=== PATIENT | male | born 1985 | race Two or more races ===

== ENCOUNTER 2018-06-05 12:22 | Emergency (ER) | payer OTHER ==
[2018-06-05 12:27] VITALS: BP 133/91
[2018-06-05] MEDS ORDERED: HYDROCODONE/ACETAMINOPHEN 5-325 MG TABLET PO ONE (12:53)
--- NOTE | 2018-06-05 12:58 | ER Document Report ---
HPI - HPI Patient complains to provider of: Fall downstairs Onset: Just prior to arrival Onset/Duration: Sudden Quality of pain: Sharp Pain Level: 5 Context: Patient states that he was attempting to walk down the stairs and he felt a pop in his knee and then he fell. Patient states that he injured his right wrist, bilateral knees, right ankle and back. Patient states he has a previous history of partial knee replacement on the knee that popped and caused him to fall. Patient denies any loss of consciousness, nausea or vomiting. Exacerbated by: Movement Relieved by: Denies Similar symptoms previously: No Recently seen / treated by doctor: No - ROS ROS below otherwise negative: Yes Systems Reviewed and Negative: Yes All other systems reviewed and negative - NEURO Neurology: DENIES: Headache, Weakness - RESPIRATORY Respiratory: DENIES: Trouble Breathing, Coughing - GASTROINTESTINAL Gastrointestinal: DENIES: Nausea - MUSCULOSKELETAL Musculoskeletal: REPORTS: Extremity pain, Back Pain. 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 IN LAST 30 DAYS: No - HEENT HEENT: Atraumatic, Normal ENT Exam, Normocephalic, PERRLA Notes: No raccoon or aldana sign, no hemotympanum, no fluid or drainage from ears or nose bilaterally - NECK Neck: Normal Inspection, Supple Notes: No midline tenderness step-off or deformity - RESPIRATORY Respiratory: Breath Sounds Normal, No Respiratory Distress - CARDIOVASCULAR Cardiovascular: Regular Rate, Regular Rhythm Pulses: Normal: Radial, Dorsalis pedis - BACK Back: Abnormal Inspection - Thoracolumbar tenderness, no step-off or deformity - MUSCULOSKELETAL/EXTREMETIES Musculoskeletal/Extremeties: MAEW, Tender - Right wrist tenderness, right hand over first second and third metacarpals. No edema, no deformity. Notes: Patient with tenderness to bilateral knees, scar overlying left knee consistent with patient's history of partial knee replacement. Right ankle tenderness over lateral malleolar area with overlying region. Tenderness extends into the right midfoot area. No swelling or deformity noted to foot. - NEURO Level of Consciousness: Awake, Alert, Appropriate Motor/Sensory: No Motor Deficit - DERM Integumentary: Warm, Dry Notes: Abrasion to right lateral ankle Course - Re-evaluation Re-evalutation: 06/05/18 14:24 X-rays reviewed, no acute fracture. Patient has follow-up appointment with orthopedics this week for recheck. - Vital Signs Vital signs: Temp Pulse Resp BP Pulse Ox 98.2 F 93 16 133/91 H 100 06/05/18 12:23 06/05/18 12:23 06/05/18 12:23 06/05/18 12:23 06/05/18 12:23 - Diagnostic Test Radiology reviewed: Reports reviewed Procedures - Immobilization Right Wrist Pre-Proc Neuro Vasc Exam: Normal Immobilizer type: Ankle stirrup Performed by: PCT Post-Proc Neuro Vasc Exam: Normal Alignment checked and good: Yes Right Knee Pre-Proc Neuro Vasc Exam: Normal Immobilizer type: Eddie wrap Performed by: PCT Post-Proc Neuro Vasc Exam: Normal Alignment checked and good: Yes Left Knee Pre-Proc Neuro Vasc Exam: Normal Immobilizer type: Knee immobilizer Performed by: PCT Post-Proc Neuro Vasc Exam: Normal Alignment checked and good: Yes Right Ankle Pre-Proc Neuro Vasc Exam: Normal Immobilizer type: Ankle stirrup Performed by: PCT Post-Proc Neuro Vasc Exam: Normal Alignment checked and good: Yes Discharge - Discharge Clinical Impression: Fall Qualifiers: Encounter type: initial encounter Qualified Code(s): W19.XXXA - Unspecified fall, initial encounter Right ankle sprain Qualifiers: Encounter type: initial encounter Involved ligament of ankle: unspecified ligament Qualified Code(s): S93.401A - Sprain of unspecified ligament of right ankle, initial encounter Back pain Qualifiers: Back pain location: back pain in unspecified location Chronicity: unspecified Back pain laterality: unspecified Qualified Code(s): M54.9 - Dorsalgia, unspecified Right wrist sprain Qualifiers: Encounter type: initial encounter Qualified Code(s): S63.501A - Unspecified sprain of right wrist, initial encounter Bilateral knee pain Qualifiers: Chronicity: acute Qualified Code(s): M25.561 - Pain in right knee Ankle abrasion Qualifiers: Encounter type: initial encounter Laterality: right Qualified Code(s): S90.511A - Abrasion, right ankle, initial encounter Condition: Stable Disposition: HOME, SELF-CARE Instructions: Eddie Wrap ([facility]), Ankle Stirrup Splint ([facility]), Ice Packs ([facility]), Knee Immobilizing Splint ([facility]), Low Back Pain ([facility]), Muscle Relaxers ([facility]), Muscle Strain ([facility]), Oral Narcotic Medication ([facility]), Sprained Ankle ([facility]) Additional Instructions: Return immediately for any new or worsening symptoms Followup with your primary care provider, call tomorrow to make a followup appointment Follow-up with orthopedics for further evaluation, call tomorrow for follow-up appointment. Weightbearing as tolerated Prescriptions: Cyclobenzaprine HCl [Flexeril 10 Mg Tablet] 10 mg PO TID #15 tablet Hydrocodone/Acetaminophen [Adams 5-325 Tablet] 1 each PO Q4 PRN #15 tablet PRN Reason: Forms: Return to Work Referrals: [facility] [Provider Group] - Follow up as needed [facility] [Provider Group] - Follow up tomorrow
--- NOTE | 2018-06-05 13:50 | RADIOLOGY REPORT (SQ) ---
EXAM DESCRIPTION: HAND RIGHT 3 VIEWS COMPLETED DATE/TIME: 06/05/2018 1:36 pm REASON FOR STUDY: fall down staircase COMPARISON: None. EXAM PARAMETERS: NUMBER OF VIEWS: Three views. TECHNIQUE: AP, lateral and oblique radiographic images acquired of the right hand. LIMITATIONS: None. FINDINGS: MINERALIZATION: Normal. BONES: No acute fracture or dislocation. No worrisome bone lesions. JOINTS: No effusions. SOFT TISSUES: No soft tissue swelling. No foreign body. OTHER: No other significant finding. IMPRESSION: NEGATIVE STUDY OF THE RIGHT HAND. NO RADIOGRAPHIC EVIDENCE OF ACUTE INJURY. TECHNICAL DOCUMENTATION: JOB ID: [id number] [employer]- All Rights Reserved Reading location - IP/workstation name: [email or web address]
--- NOTE | 2018-06-05 13:50 | RADIOLOGY REPORT (SQ) ---
EXAM DESCRIPTION: FOOT RIGHT COMPLETE COMPLETED DATE/TIME: 06/05/2018 1:36 pm REASON FOR STUDY: fall down staircase COMPARISON: None. NUMBER OF VIEWS: Three views. TECHNIQUE: AP, lateral and oblique radiographic images acquired of the right foot. LIMITATIONS: None. FINDINGS: MINERALIZATION: Normal. BONES: No acute fracture or dislocation. No worrisome bone lesions. JOINTS: No effusions. SOFT TISSUES: No soft tissue swelling. No foreign body. OTHER: No other significant finding. IMPRESSION: NEGATIVE STUDY OF THE RIGHT FOOT. NO RADIOGRAPHIC EVIDENCE OF ACUTE INJURY. TECHNICAL DOCUMENTATION: JOB ID: [id number] [employer]- All Rights Reserved Reading location - IP/workstation name: [email or web address]
--- NOTE | 2018-06-05 13:51 | RADIOLOGY REPORT (SQ) ---
EXAM DESCRIPTION: ANKLE RIGHT COMPLETE COMPLETED DATE/TIME: 06/05/2018 1:36 pm REASON FOR STUDY: fall down staircase COMPARISON: None. NUMBER OF VIEWS: Three views. TECHNIQUE: AP, lateral, and oblique radiographic images acquired of the right ankle. LIMITATIONS: None. FINDINGS: MINERALIZATION: Normal. BONES: No acute fracture or dislocation. No worrisome bone lesions. JOINTS: No effusions. SOFT TISSUES: No soft tissue swelling. No foreign body. OTHER: No other significant finding. IMPRESSION: NEGATIVE STUDY OF THE RIGHT ANKLE. NO RADIOGRAPHIC EVIDENCE OF ACUTE INJURY. TECHNICAL DOCUMENTATION: JOB ID: [id number] [employer]- All Rights Reserved Reading location - IP/workstation name: [email or web address]
--- NOTE | 2018-06-05 13:52 | RADIOLOGY REPORT (SQ) ---
EXAM DESCRIPTION: WRIST RIGHT 3 VIEWS COMPLETED DATE/TIME: 06/05/2018 1:36 pm REASON FOR STUDY: fall down staircase COMPARISON: None. NUMBER OF VIEWS: Three views. TECHNIQUE: AP, lateral, and oblique radiographic images acquired of the right wrist. LIMITATIONS: None. FINDINGS: MINERALIZATION: Normal. BONES: No acute fracture or dislocation. No worrisome bone lesions. Normal alignment. SOFT TISSUES: No soft tissue swelling. No foreign body. OTHER: No other significant finding. IMPRESSION: NEGATIVE STUDY OF THE RIGHT WRIST. NO RADIOGRAPHIC EVIDENCE OF ACUTE INJURY. TECHNICAL DOCUMENTATION: JOB ID: [id number] [employer]- All Rights Reserved Reading location - IP/workstation name: [email or web address]
--- NOTE | 2018-06-05 13:52 | RADIOLOGY REPORT (SQ) ---
EXAM DESCRIPTION: KNEE BILATERAL 1-2 VIEWS COMPLETED DATE/TIME: 06/05/2018 1:36 pm REASON FOR STUDY: fall down staircase COMPARISON: None. NUMBER OF VIEWS: Four views. TECHNIQUE: AP and lateral radiographic images acquired of the right and left knee. LIMITATIONS: None. FINDINGS: MINERALIZATION: Normal. BONES: No acute fracture or dislocation. No worrisome bone lesions. JOINT: Lateral left knee arthroplasty. SOFT TISSUES: No foreign body. OTHER: No other significant finding. IMPRESSION: No acute findings. TECHNICAL DOCUMENTATION: JOB ID: [id number] [employer]- All Rights Reserved Reading location - IP/workstation name: [email or web address]
--- NOTE | 2018-06-05 13:53 | RADIOLOGY REPORT (SQ) ---
EXAM DESCRIPTION: T SPINE AP/LAT COMPLETED DATE/TIME: 06/05/2018 1:36 pm REASON FOR STUDY: fall down staircase COMPARISON: None. NUMBER OF VIEWS: Two views. TECHNIQUE: AP and lateral radiographic images acquired of the thoracic spine. LIMITATIONS: None. FINDINGS: MINERALIZATION: Normal. ALIGNMENT: Normal. No scoliosis. VERTEBRAE: No fracture or bone lesion. Maintained height, normal segmentation. DISCS: No significant loss of height or significant narrowing. No large osteophytes. HARDWARE: None in the spine. MEDIASTINUM AND SOFT TISSUES: Normal heart size and aortic contour. No soft tissue abnormality. VISUALIZED LUNG DUPREE: Clear. OTHER: No other significant finding. IMPRESSION: NO SIGNIFICANT RADIOGRAPHIC FINDING IN THE THORACIC SPINE. TECHNICAL DOCUMENTATION: JOB ID: [id number] [employer]- All Rights Reserved Reading location - IP/workstation name: [email or web address]
--- NOTE | 2018-06-05 13:54 | RADIOLOGY REPORT (SQ) ---
EXAM DESCRIPTION: L SPINE WHOLE COMPLETED DATE/TIME: 06/05/2018 1:36 pm REASON FOR STUDY: fall down staircase COMPARISON: None. NUMBER OF VIEWS: Five views including obliques. TECHNIQUE: AP, lateral, oblique, and sacral radiographic images acquired of the lumbar spine. LIMITATIONS: None. FINDINGS: MINERALIZATION: Normal. SEGMENTATION: Sacralization of L5. ALIGNMENT: Normal. VERTEBRAE: Maintained height. No fracture or worrisome bone lesion. DISCS: Preserved height. No significant osteophytes or end plate irregularity. POSTERIOR ELEMENTS: Pedicles and facets are intact. No pars defect or posterior arch defects. HARDWARE: None in the spine. PARASPINAL SOFT TISSUES: Normal. PELVIS: Intact as visualized. No fractures or worrisome bone lesions. SI joints intact. OTHER: No other significant finding. IMPRESSION: NORMAL 5 VIEW LUMBAR SPINE. TECHNICAL DOCUMENTATION: JOB ID: [id number] [employer]- All Rights Reserved Reading location - IP/workstation name: [email or web address]
[2018-06-05] MEDS ORDERED: CYCLOBENZAPRINE HCL 10 MG TABLET PO ONE (14:18)
== END 2018-06-05 14:41 | disposition home or self-care (01) ==
LOC: ER 12:22
DX: S93.401A Sprain of unspecified ligament of right ankle, initial encounter (principal); S63.501A Unspecified sprain of right wrist, initial encounter; M25.561 Pain in right knee; M25.562 Pain in left knee; M54.9 Dorsalgia, unspecified; W10.9XXA Fall (on) (from) unspecified stairs and steps, initial encounter; Z98.890 Other specified postprocedural states
CPT/HCPCS: 99283; 73610; 73630; 73130; 72110; 72070; 73110; 73560; L1830; L1902; L3908

== ENCOUNTER 2018-08-02 21:50 | Emergency (ER) | payer OTHER ==
[2018-08-02] MEDS ORDERED: RABIES IMMUNE GLOBULIN INJ/PF 300 UNIT/2 ML SDV IM ONE (22:39)
[2018-08-02] MEDS ORDERED: AMOXICILLIN TR/POT CLAVULANATE 500-125 MG TAB PO ONE (22:39)
[2018-08-02] MEDS ORDERED: HYDROCODONE/ACETAMINOPHEN 5-325 MG TABLET PO ONE (22:39)
[2018-08-02] MEDS ORDERED: DIPH/PERTUSS(ACELL)/TETANUS VAC/PF 0.5 ML SYR (>=10YO) IM ONE (22:39)
[2018-08-02] MEDS ORDERED: RABIES VACCINE (PCEC)/PF 2.5 UNIT/1 ML KIT IM ONE (22:39)
--- NOTE | 2018-08-02 23:20 | ER Document Report ---
HPI - HPI Patient complains to provider of: Dog bite Onset: This evening Onset/Duration: Sudden Quality of pain: Achy Pain Level: 5 Context: Patient states that 2 stray dogs were fighting near his yard and he attempted to break up the fight. Patient states that he got bit to bilateral hands. Patient does not recognize the dogs as being any of his neighbors animals and does not feel that animal control will be able to locate these dogs. Associated Symptoms: Other - Dog bites to bilateral hands Exacerbated by: Movement Relieved by: Denies Similar symptoms previously: No Recently seen / treated by doctor: No - ROS ROS below otherwise negative: Yes Systems Reviewed and Negative: Yes All other systems reviewed and negative - NEURO Neurology: DENIES: Weakness - GASTROINTESTINAL Gastrointestinal: DENIES: Nausea - REPRODUCTIVE Reproductive: DENIES: : - MUSCULOSKELETAL Musculoskeletal: REPORTS: Extremity pain - DERM Skin Problems: Abrasion, Puncture Wound Past Medical History - General Information source: Patient - Social History Smoking Status: Current Every Day Smoker Smoking Education Provided: Yes Frequency of alcohol use: None Drug Abuse: None 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 Lives with: Spouse/Significant other Family History: Reviewed & Not Pertinent Renal/ Medical History: Denies: Hx Peritoneal Dialysis GI Medical History: Reports: Hx Gastroesophageal Reflux Disease, Other - Pancreatitis Musculoskeletal Medical History: Reports Hx Arthritis Psychiatric Medical History: Reports: Hx Post Traumatic Stress Disorder Past Surgical History: Reports: Hx Oral Surgery, Hx Orthopedic Surgery Vertical Provider Document - CONSTITUTIONAL Agree With Documented VS: Yes Exam Limitations: No Limitations General Appearance: WD/WN, No Apparent Distress - INFECTION CONTROL TRAVEL OUTSIDE OF THE [place] IN LAST 30 DAYS: No - HEENT HEENT: Atraumatic - NECK Neck: Normal Inspection - RESPIRATORY Respiratory: No Respiratory Distress - CARDIOVASCULAR Pulses: Normal: Radial - BACK Back: Normal Inspection - MUSCULOSKELETAL/EXTREMETIES Musculoskeletal/Extremeties: MAEW, FROM, No Edema. negative: Eccymosis Notes: Tenderness to bilateral hands from puncture wounds from dog bites. Patient without any tendon deficit. Patient with full range of motion to all fingers of bilateral hands - NEURO Level of Consciousness: Awake, Alert, Appropriate Motor/Sensory: No Motor Deficit, No Sensory Deficit - DERM Integumentary: Warm, Dry. negative: Laceration Adult Front & Back Diagram: 1 - PW x 3 to dorsal right wrist, PW x 1 to r volar wrist 2 - PW x1 to left palm, abrasion to L 5th finger Course - Re-evaluation Re-evalutation: 08/02/18 23:20 Patient feels that the dog that attacked him we will not be able to be relocated and he does not know these animals. Patient feels that animal control will not be able to locate these animals and that these dogs are not any of his neighbors animals. - Vital Signs Vital signs: Temp Pulse Resp BP Pulse Ox 97.9 F 116 H 16 125/78 99 08/02/18 21:57 08/02/18 21:57 08/02/18 21:57 08/02/18 21:57 08/02/18 21:57 Discharge - Discharge Clinical Impression: Dog bite Qualifiers: Encounter type: initial encounter Qualified Code(s): W54.0XXA - Bitten by dog, initial encounter Puncture wound of hand Qualifiers: Encounter type: initial encounter Foreign body presence: unspecified Laterality : unspecified laterality Qualified Code(s): S61.439A - Puncture wound without foreign body of unspecified hand, initial encounter Abrasion hand Qualifiers: Encounter type: initial encounter Laterality: unspecified laterality Qualified Code(s): S60.519A - Abrasion of unspecified hand, initial encounter Condition: Stable Disposition: HOME, SELF-CARE Instructions: Animal Bites ([facility]), Augmentin ([facility]), Rabies Prophyllaxis ([facility]), Tetanus Immunization Given ([facility]) Additional Instructions: Return immediately for any new or worsening symptoms Followup with your primary care provider, call tomorrow to make a followup appointment You will need to return on August 05, August 09 and August 23 for additional rabies vaccines to complete the series. Prescriptions: Amox Tr/Potassium Clavulanate [Augmentin 875-125 Tablet] 1 tab PO BID 5 Days tablet Naproxen [Naprosyn 250 Nmg Tablet] 1 tab PO BID #14 tablet Forms: Smoking Cessation Education Referrals: SANA ARNOLD DO [ACTIVE STAFF] - Follow up as needed
[2018-08-03 01:34] VITALS: BP 106/66
== END 2018-08-03 02:03 | disposition home or self-care (01) ==
LOC: ER 21:50
DX: S61.531A Puncture wound without foreign body of right wrist, initial encounter (principal); S60.417A Abrasion of left little finger, initial encounter; S61.432A Puncture wound without foreign body of left hand, initial encounter; W54.0XXA Bitten by dog, initial encounter; Y92.007 Garden or yard of unspecified non-institutional (private) residence as the place of occurrence of the external cause; F17.200 Nicotine dependence, unspecified, uncomplicated; Z23 Encounter for immunization
CPT/HCPCS: 90376; 90471; 90675; 90715; 96372; 99283

== ENCOUNTER 2018-08-04 14:59 | Emergency (ER) | payer OTHER ==
[2018-08-04] MEDS ORDERED: NORMAL SALINE 1000 ML 1,000 ML IV ONE (15:57)
[2018-08-04] MEDS ORDERED: KETOROLAC TROMETHAMINE INJ/PF 30 MG/1 ML SDV IV ONE (15:57)
--- NOTE | 2018-08-04 15:59 | ER Document Report ---
ED Medical Screen (RME) - General Chief Complaint: Abdominal Pain Stated Complaint: ABDOMINAL PAIN/ POSSIBLE DOG BITE Time Seen by Provider: 08/04/18 15:56 Mode of Arrival: Wheelchair Information source: Patient TRAVEL OUTSIDE OF THE [place] IN LAST 30 DAYS: No - HPI Patient complains to provider of: abd pain/dog bite Onset: Yesterday - pt has h/o pancreatitis and started drinking ETOH and pain worsened. Also wants dog bite he received 2 days ago checked out. Tet- UTD and has been receiving Rabies vax - Related Data Allergies/Adverse Reactions: No Known Allergies Allergy (Verified 08/04/18 15:00) Past Medical History - Social History Frequency of alcohol use: Occasional Drug Abuse: None Renal/ Medical History: Denies: Hx Peritoneal Dialysis GI Medical History: Reports: Hx Gastroesophageal Reflux Disease Musculoskeltal Medical History: Reports Hx Arthritis Psychiatric Medical History: Reports: Hx Post Traumatic Stress Disorder Past Surgical History: Reports: Hx Oral Surgery, Hx Orthopedic Surgery Physical Exam - Vital signs Vitals: Temp Pulse Resp BP Pulse Ox 98.5 F 100 20 115/67 99 08/04/18 15:29 08/04/18 15:29 08/04/18 15:29 08/04/18 15:29 08/04/18 15:29 Course - Vital Signs Vital signs: Temp Pulse Resp BP Pulse Ox 98.5 F 100 20 115/67 99 08/04/18 15:29 08/04/18 15:29 08/04/18 15:29 08/04/18 15:29 08/04/18 15:29
[2018-08-04 16:37] LABS: ABSOLUTE BASOPHILS # (AUTO) 0.1 10^3/uL (0.0-0.2); ABSOLUTE EOSINOPHILS # (AUTO) 0.2 10^3/uL (0.0-0.6); ABSOLUTE LYMPHOCYTES (AUTO) 1.4 10^3/uL (0.5-4.7); ABSOLUTE MONOCYTES (AUTO) 0.6 10^3/uL (0.1-1.4); ABSOLUTE NEUT (AUTO) 4.2 10^3/uL (1.7-8.2); EOSINOPHILS % (AUTO) 3.2 % (0-6); HEMATOCRIT 40.6 % (37.9-51.0); HEMOGLOBIN 13.8 g/dL (13.5-17.0); MEAN CORPUSCULAR HEMOGLOBIN 32.8 pg (27.0-33.4); MEAN CORPUSCULAR HGB CONC 34.1 g/dL (32.0-36.0); MEAN CORPUSCULAR VOLUME 96 fl (80-97); MONOCYTES % (AUTO) 9.3 % (3-13); PLATELET COUNT 239 10^3/uL (150-450); RED BLOOD COUNT 4.22 10^6/uL (4.35-5.55); RED CELL DISTRIBUTION WIDTH 14.1 % (11.5-14.0); SEGMENTED NEUTROPHILS % (AUTO) 64.5 % (42-78); TOTAL CELLS COUNTED % (AUTO) 100 %; WHITE BLOOD COUNT 6.5 10^3/uL (4.0-10.5)
[2018-08-04 16:45] LABS: APPEARANCE,URINE SLIGHTLY-CLOUDY; BILIRUBIN,URINE NEGATIVE (NEGATIVE); COLOR,URINE YELLOW; GLUCOSE, URINE NEGATIVE (NEGATIVE); KETONES,URINE NEGATIVE (NEGATIVE); LEUKOCYTE ESTERASE,URINE NEGATIVE (NEGATIVE); NITRITE,URINE NEGATIVE (NEGATIVE); PROTEIN,URINE NEGATIVE (NEGATIVE); URINE SPECIFIC GRAVITY 1.012; UROBILINOGEN,URINE NEGATIVE mg/dL (<2.0)
--- NOTE | 2018-08-04 16:51 | RADIOLOGY REPORT (SQ) ---
EXAM DESCRIPTION: ACUTE ABDOMEN SERIES COMPLETED DATE/TIME: 08/04/2018 4:41 pm REASON FOR STUDY: abd pain COMPARISON: None. NUMBER OF VIEWS: Three views. TECHNIQUE: Frontal chest, supine abdomen and upright/decubitus abdomen radiographic images acquired. LIMITATIONS: None. FINDINGS: CHEST: Lungs clear of infiltrates. FREE AIR: None. No abnormal gas collections. BOWEL GAS PATTERN: Nonobstructive pattern. No dilated loops or air fluid levels. CALCIFICATIONS: No suspicious calcifications. HARDWARE: None in the abdomen. SOFT TISSUES: No gross mass or suggestion of organomegaly. BONES: No acute fracture. No worrisome bone lesions. OTHER: No other significant finding. IMPRESSION: NO RADIOGRAPHIC EVIDENCE FOR ACUTE ABDOMINAL DISEASE. TECHNICAL DOCUMENTATION: JOB ID: [id number] [employer]- All Rights Reserved Reading location - IP/workstation name: [email or web address]
[2018-08-04 16:55] LABS: ALANINE AMINOTRANSFERASE 64 U/L (21-72); ALCOHOL 198 mg/dL (NONE DETECTED); ALKALINE PHOSPHATASE 98 U/L (38-126); ANION GAP 12 (5-19); ASPARTATE AMINO TRANSFERASE 113 U/L (17-59); BILIRUBIN,DIRECT 0.4 mg/dL (0.0-0.4); BILIRUBIN,TOTAL 0.6 mg/dL (0.2-1.3); BLOOD UREA NITROGEN 11 mg/dL (7-20); CALCIUM 8.8 mg/dL (8.4-10.2); CARBON DIOXIDE 26 mmol/L (22-30); CHLORIDE 103 mmol/L (98-107); GLUCOSE 134 mg/dL (75-110); LIPASE 412.2 U/L (23-300); SODIUM 141.4 mmol/L (137-145); TOTAL PROTEIN 7.4 g/dL (6.3-8.2)
[2018-08-04] MEDS ORDERED: ONDANSETRON HCL INJ/PF 4 MG/2 ML SDV IV ONE (20:26)
[2018-08-04] MEDS ORDERED: METOCLOPRAMIDE HCL ORAL SOLN 10 MG/10 ML UDCUP PO ONE (21:28)
[2018-08-04] MEDS ORDERED: MAG HYDROX/AL HYDROX/SIMETH SUSP 30 ML UDCUP PO ONE (21:28)
[2018-08-04] MEDS ORDERED: LIDOCAINE 2% VISCOUS SOLN 20 ML UDCUP PO ONE (21:28)
[2018-08-04] MEDS ORDERED: DIAZEPAM 5 MG TABLET PO ONE ×2 (21:29)
[2018-08-04] MEDS ORDERED: FAMOTIDINE 20 MG TABLET PO ONE (21:29)
[2018-08-04] MEDS ORDERED: TRAMADOL HCL 50 MG TABLET PO ONE (21:35)
--- NOTE | 2018-08-04 21:37 | ER Document Report ---
ED General - General Chief Complaint: Abdominal Pain Stated Complaint: ABDOMINAL PAIN/ POSSIBLE DOG BITE Time Seen by Provider: 08/04/18 15:56 Mode of Arrival: Wheelchair Notes: Patient is a 33-year-old male with a past medical history of alcohol induced pancreatitis, alcoholism, who presents with epigastric abdominal discomfort with associated nausea. Describes the pain as being a stabbing, aching pain to the upper abdomen that does not radiate. Nothing has improved or worsen the symptoms since onset. States that his symptoms started earlier today being aggressively worsened throughout the day today. Admits to alcohol use both last evening and today. He has been taking naproxen for a dog bite that he sustained 2 days ago. States his symptoms feel somewhat similar to when he has had acute pancreatitis in the past. The patient is also quite tremulous, admits to feeling like he is entering alcohol withdrawal. He has not seen his general doctor regarding today's concerns. No fever, diarrhea or constitutional symptoms. TRAVEL OUTSIDE OF THE [place] IN LAST 30 DAYS: No - Related Data Allergies/Adverse Reactions: No Known Allergies Allergy (Verified 08/04/18 15:00) Past Medical History - General Information source: Patient - Social History Smoking Status: Never Smoker Frequency of alcohol use: Occasional Drug Abuse: None Lives with: Spouse/Significant other Family History: Reviewed & Not Pertinent Patient has suicidal ideation: No Patient has homicidal ideation: No Renal/ Medical History: Denies: Hx Peritoneal Dialysis GI Medical History: Reports: Hx Gastroesophageal Reflux Disease Musculoskeletal Medical History: Reports Hx Arthritis Psychiatric Medical History: Reports: Hx Post Traumatic Stress Disorder Past Surgical History: Reports: Hx Oral Surgery, Hx Orthopedic Surgery Review of Systems - Review of Systems Notes: Constitutional: Negative for fever. HENT: Negative for sore throat. Eyes: Negative for visual changes. Cardiovascular: Negative for chest pain. Respiratory: Negative for shortness of breath. Gastrointestinal: Positive for upper abdominal pain and vomiting Genitourinary: Negative for dysuria. Musculoskeletal: Negative for back pain. Skin: Negative for rash. Neurological: Negative for headaches, weakness or numbness. Positive for tremulousness 10 point ROS negative except as marked above and in HPI. Physical Exam - Vital signs Vitals: Temp Pulse Resp BP Pulse Ox 98.5 F 100 20 115/67 99 08/04/18 15:29 08/04/18 15:29 08/04/18 15:29 08/04/18 15:29 08/04/18 15:29 Interpretation: Normal Notes: PHYSICAL EXAMINATION: GENERAL: Appears moderately uncomfortable but in no acute distress HEAD: Atraumatic, normocephalic. EYES: Pupils equal round and reactive to light, extraocular movements intact, sclera anicteric, conjunctiva are normal. ENT: nares patent, oropharynx clear without exudates. Moderately dry mucous membranes. NECK: Normal range of motion, supple without lymphadenopathy LUNGS: Breath sounds clear to auscultation bilaterally and equal. No wheezes rales or rhonchi. HEART: Regular rate and rhythm without murmurs ABDOMEN: Soft, focal tenderness to the epigastrium but no other localized areas of tenderness, normoactive bowel sounds. No guarding, no rebound. No masses appreciated. EXTREMITIES: Normal range of motion, no pitting or edema. No cyanosis. NEUROLOGICAL: No focal neurological deficits. Moves all extremities spontaneously and on command. Moderately tremulous PSYCH: Normal mood, normal affect. SKIN: Warm, Dry, normal turgor, no rashes or lesions noted. Course - Re-evaluation Re-evalutation: 08/04/18 21:33 Patient presents with epigastric abdominal pain, nausea and vomiting. Overall picture appears most consistent with gastritis although could be a mild or chronic form of pancreatitis secondary to alcohol abuse. Lipase is minimally elevated, not high enough to truly diagnose pancreatitis. Patient has no focal abdominal tenderness on examination. LFT findings consistent with chronic alcohol abuse. Based on history and exam, I do not suspect ACS, pulmonary embolus, SBO, mesenteric ischemia, acute pancreatitis, biliary pathology, or an abdominal aortic dissection. Patient initially denied heavy alcohol consumption but after continuing discussed with him he did confess that he drinks over a 12 pack nightly. His at the bedside has agreed to administer the chlordiazepoxide taper and the patient has agreed to alcohol cessation and going into rehab. Patient has had almost complete resolution of his symptoms after receiving a GI cocktail. I have advised discontinuation of naproxen. I have emphasized the need for a clear liquid diet until his pain has improved. Verbal discharge instructions given a the bedside and opportunity for questions given. Medication warnings reviewed. Patient is in agreement with this plan and has verbalized understanding of return precautions and the need for primary care follow-up in the next 24-72 hours. - Vital Signs Vital signs: Temp Pulse Resp BP Pulse Ox 97.8 F 79 18 135/85 H 98 08/04/18 22:00 08/04/18 22:00 08/04/18 22:00 08/04/18 22:00 08/04/18 22:00 - Laboratory Result Diagrams: 08/04/18 16:20 08/04/18 16:20 Laboratory results interpreted by me: 08/04/18 08/04/18 16:20 16:20 RBC 4.22 L RDW 14.1 H Glucose 134 H AST 113 H Lipase 412.2 H - Diagnostic Test Radiology reviewed: Reports reviewed Discharge - Discharge Clinical Impression: Epigastric abdominal pain, Nausea, Alcohol abuse Alcohol withdrawal Qualifiers: Complication of substance-induced condition: uncomplicated Qualified Code(s): F10.230 - Alcohol dependence with withdrawal, uncomplicated Condition: Good Disposition: HOME, SELF-CARE Additional Instructions: You were seen today for alcohol-induced gastritis versus chronic pancreatitis. Please avoid alcohol in any quantity in the future as this could cause a recurrence of your pancreatitis. Please keep in mind that pancreatitis can be a very serious condition that can even result in . Your case today appears very mild and it is safe for you to go home today with medications for pain and nausea. Please drink plenty of fluids over the next several days and try to avoid food ingestion until your pain is resolved. Please return to the emergency department immediately if you develop persistent vomiting that prohibits you from taking your medications or keeping fluids down, you develop a fever of greater than 101F, you have worsening pain, you become confused, you become short of breath, or have any other symptoms that are worrisome to you. Please follow-up with your primary care doctor in the next 24-48 hours. You have been sent home on medication to help withdraw from alcohol. You should only start taking this medication and discontinue alcohol if you are seroius about quitting alcohol. This will not completely remove all your symptoms from withdrawal should make it so that your symptoms are more manageable. You need to return to the emergency room immediately if you pass out, or vomiting so severely your unable to keep anything down, start hallucinate, or have any other symptoms that are of concern to you. You need to go to an inpatient program and should speak with your primary care doctor regarding these resources. How to take the librium to come off alcohol. DO NOT DRINK ANY ALCOHOL WHILE USING THIS MEDICATION Day 1-3: 75mg PO TID Day 4-6: 50mg PO TID Day 7-9: 25mg PO TID Day 10-12: 25mg PO BID Day 13-15: 25mg PO daily PRN Prescriptions: Chlordiazepoxide HCl [Librium 25 mg Capsule] 1 cap PO QID #75 capsule Referrals: MELINA RAYMOND MD [Primary Care Provider] - Follow up as needed
[2018-08-04 22:02] VITALS: BP 135/85
== END 2018-08-04 22:03 | disposition home or self-care (01) ==
LOC: ER 14:59
DX: R10.13 Epigastric pain (principal); F10.230 Alcohol dependence with withdrawal, uncomplicated; R11.2 Nausea with vomiting, unspecified; T14.8XXA Other injury of unspecified body region, initial encounter; W54.0XXA Bitten by dog, initial encounter; Z87.19 Personal history of other diseases of the digestive system
CPT/HCPCS: 99284; 96361; 96374; 96375; 36415; 80307; 83690; 85025; 80053; 81001; 74022; J3490; J1885; J2405; J7030

== ENCOUNTER 2018-08-18 16:11 | Emergency (ER) | payer OTHER ==
[2018-08-18 18:31] LABS: APPEARANCE,URINE CLEAR; BILIRUBIN,URINE NEGATIVE (NEGATIVE); COLOR,URINE COLORLESS; GLUCOSE, URINE NEGATIVE (NEGATIVE); KETONES,URINE NEGATIVE (NEGATIVE); LEUKOCYTE ESTERASE,URINE NEGATIVE (NEGATIVE); NITRITE,URINE NEGATIVE (NEGATIVE); PROTEIN,URINE NEGATIVE (NEGATIVE); URINE SPECIFIC GRAVITY 1.002; UROBILINOGEN,URINE NEGATIVE mg/dL (<2.0)
[2018-08-18 18:45] LABS: URINE BARBITURATES SCREEN NEGATIVE; URINE BENZODIAZEPINES SCREEN UNCONFIRMED POSITIVE; URINE COCAINE SCREEN NEGATIVE; URINE MARIJUANA (THC) SCREEN NEGATIVE; URINE METHADONE SCREEN NEGATIVE; URINE PHENCYCLIDINE SCREEN NEGATIVE
[2018-08-18 18:49] LABS: URINE AMPHETAMINES SCREEN NEGATIVE
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
[2018-08-18 20:57] VITALS: BP 114/66
== END 2018-08-18 21:17 | disposition home or self-care (01) ==
LOC: ER 16:11
DX: S16.1XXA Strain of muscle, fascia and tendon at neck level, initial encounter (principal); S06.0X0A Concussion without loss of consciousness, initial encounter; S80.02XA Contusion of left knee, initial encounter; S80.01XA Contusion of right knee, initial encounter; V43.52XA Car driver injured in collision with other type car in traffic accident, initial encounter; F17.210 Nicotine dependence, cigarettes, uncomplicated
CPT/HCPCS: 99284; 81001; 80307; 73562; 70450; 72125; 72128; 72131; L0120

== ENCOUNTER 2018-09-07 22:49 | Emergency (ER) | payer OTHER ==
--- NOTE | 2018-09-07 23:54 | ER Document Report ---
ED General - General Chief Complaint: Psych Problem Stated Complaint: SUICIDAL IDEATION, PAIN IN LEFT KNEE Time Seen by Provider: 09/07/18 23:36 Notes: Patient is a 33-year-old male with a past medical history of PTSD, depression, alcohol abuse who presents with suicidal ideation. Patient apparently told his significant other that he "might have something happen to him" thuight, advised her that she was getting a life insurance policy pay out. Patient states that he has been counseling suicide for quite some time although his feelings of suicidal ideation dramatically worsened in the last several weeks due to multiple social stressors. He has not been seeking care for this issue but has been drinking alcohol heavily to self medicate. He denies acute medical concerns although does note that he has been having chronic bilateral knee pain since getting to have received several weeks ago. He denies access to a firearm. Nothing improves or worsens his symptoms. TRAVEL OUTSIDE OF THE [place] IN LAST 30 DAYS: No - Related Data Allergies/Adverse Reactions: No Known Allergies Allergy (Verified 08/04/18 15:00) Past Medical History - General Information source: Patient - Social History Smoking Status: Current Some Day Smoker Chew tobacco use (# tins/day): No Frequency of alcohol use: Heavy Drug Abuse: None Lives with: Spouse/Significant other Family History: Reviewed & Not Pertinent Patient has suicidal ideation: No Patient has homicidal ideation: Yes Renal/ Medical History: Denies: Hx Peritoneal Dialysis GI Medical History: Reports: Hx Gastroesophageal Reflux Disease Musculoskeletal Medical History: Reports Hx Arthritis Psychiatric Medical History: Reports: Hx Post Traumatic Stress Disorder Past Surgical History: Reports: Hx Oral Surgery, Hx Orthopedic Surgery Review of Systems - Review of Systems Notes: Constitutional: Negative for fever. HENT: Negative for sore throat. Eyes: Negative for visual changes. Cardiovascular: Negative for chest pain. Respiratory: Negative for shortness of breath. Gastrointestinal: Negative for abdominal pain, vomiting or diarrhea. Genitourinary: Negative for dysuria. Musculoskeletal: Positive for bilateral knee pain Skin: Negative for rash. Neurological: Negative for headaches, weakness or numbness. 10 point ROS negative except as marked above and in HPI. Physical Exam - Vital signs Vitals: Temp Pulse Resp BP Pulse Ox 97.9 F 85 20 131/85 H 99 09/07/18 23:01 09/07/18 23:01 09/07/18 23:01 09/07/18 23:01 09/07/18 23:01 Interpretation: Normal Notes: PHYSICAL EXAMINATION: GENERAL: Well-appearing, well-nourished and in no acute distress. HEAD: Atraumatic, normocephalic. EYES: Pupils equal round and reactive to light, extraocular movements intact, sclera anicteric, conjunctiva are normal. ENT: nares patent, oropharynx clear without exudates. Moist mucous membranes. NECK: Normal range of motion, supple without lymphadenopathy LUNGS: Breath sounds clear to auscultation bilaterally and equal. No wheezes rales or rhonchi. HEART: Regular rate and rhythm without murmurs ABDOMEN: Soft, nontender, normoactive bowel sounds. No guarding, no rebound. No masses appreciated. EXTREMITIES: Normal range of motion, no pitting or edema. No cyanosis. NEUROLOGICAL: No focal neurological deficits. Moves all extremities spontaneously and on command. PSYCH: Despondent mood, flat affect, poor eye contact. SKIN: Warm, Dry, normal turgor, no rashes or lesions noted. Course - Re-evaluation Re-evalutation: 09/07/18 23:52 Patient presents with suicidal ideation, refuses to disclose a specific plan but appears extremely despondent and depressed on exam. He apparently told his significant other that his life insurance policy would go to her "in case something happened tonight". This appears to be effectively in explicit suicide threat. He does not deny that he feels suicidal at the time of my assessment, intermittently tearful throughout exam. Due to the patient's high risk of suicide given previous attempts, current social circumstances, depressed mood and affect on exam he has been placed on an involuntary commitment. His exam is otherwise unremarkable. He is otherwise cleared for evaluation and disposition per behavioral health in the morning. - Vital Signs Vital signs: Temp Pulse Resp BP Pulse Ox 97.9 F 85 20 131/85 H 99 09/07/18 23:01 09/07/18 23:01 09/07/18 23:01 09/07/18 23:01 09/07/18 23:01 - Laboratory Result Diagrams: 09/08/18 00:13 09/08/18 00:13 Laboratory results interpreted by me: 09/08/18 09/08/18 00:13 00:13 RBC 4.10 L Hgb 13.2 L Total Bilirubin 1.4 H AST 161 H ALT 128 H Salicylates < 1.0 L Acetaminophen < 10 L - EKG Interpretation by Me Additional EKG results interpreted by me: 09/08/18 01:19 Sinus rhythm. Rate 93. No ST elevations or depressions. QTC is 458. Discharge - Discharge Clinical Impression: Suicidal ideation, Alcohol abuse Condition: Fair
[2018-09-08 00:04] LABS: APPEARANCE,URINE CLEAR; BILIRUBIN,URINE NEGATIVE (NEGATIVE); COLOR,URINE COLORLESS; GLUCOSE, URINE NEGATIVE (NEGATIVE); KETONES,URINE NEGATIVE (NEGATIVE); LEUKOCYTE ESTERASE,URINE NEGATIVE (NEGATIVE); NITRITE,URINE NEGATIVE (NEGATIVE); PROTEIN,URINE NEGATIVE (NEGATIVE); URINE SPECIFIC GRAVITY 1.002; UROBILINOGEN,URINE NEGATIVE mg/dL (<2.0)
[2018-09-08 00:23] LABS: URINE AMPHETAMINES SCREEN NEGATIVE; URINE BARBITURATES SCREEN NEGATIVE; URINE BENZODIAZEPINES SCREEN UNCONFIRMED POSITIVE; URINE COCAINE SCREEN NEGATIVE; URINE MARIJUANA (THC) SCREEN NEGATIVE; URINE METHADONE SCREEN NEGATIVE; URINE PHENCYCLIDINE SCREEN NEGATIVE
[2018-09-08 00:27] LABS: ABSOLUTE EOSINOPHILS # (AUTO) 0.2 10^3/uL (0.0-0.6); ABSOLUTE LYMPHOCYTES (AUTO) 1.8 10^3/uL (0.5-4.7); ABSOLUTE MONOCYTES (AUTO) 0.3 10^3/uL (0.1-1.4); ABSOLUTE NEUT (AUTO) 3.1 10^3/uL (1.7-8.2); BASOPHILS % (AUTO) 0.6 % (0-2); EOSINOPHILS % (AUTO) 4.1 % (0-6); HEMATOCRIT 38.1 % (37.9-51.0); HEMOGLOBIN 13.2 g/dL (13.5-17.0); LYMPHOCYTES % (AUTO) 32.1 % (13-45); MEAN CORPUSCULAR HEMOGLOBIN 32.2 pg (27.0-33.4); MEAN CORPUSCULAR HGB CONC 34.7 g/dL (32.0-36.0); MEAN CORPUSCULAR VOLUME 93 fl (80-97); MONOCYTES % (AUTO) 6.3 % (3-13); PLATELET COUNT 179 10^3/uL (150-450); RED CELL DISTRIBUTION WIDTH 13.8 % (11.5-14.0); SEGMENTED NEUTROPHILS % (AUTO) 56.9 % (42-78); TOTAL CELLS COUNTED % (AUTO) 100 %; WHITE BLOOD COUNT 5.5 10^3/uL (4.0-10.5)
[2018-09-08 00:40] LABS: ALANINE AMINOTRANSFERASE 128 U/L (21-72); ALBUMIN 4.2 g/dL (3.5-5.0); ALCOHOL 237 mg/dL (NONE DETECTED); ALKALINE PHOSPHATASE 108 U/L (38-126); ANION GAP 15 (5-19); ASPARTATE AMINO TRANSFERASE 161 U/L (17-59); BILIRUBIN,DIRECT 0.3 mg/dL (0.0-0.4); BILIRUBIN,TOTAL 1.4 mg/dL (0.2-1.3); BLOOD UREA NITROGEN 13 mg/dL (7-20); CALCIUM 9.1 mg/dL (8.4-10.2); CARBON DIOXIDE 26 mmol/L (22-30); CHLORIDE 103 mmol/L (98-107); GLUCOSE 89 mg/dL (75-110); POTASSIUM 4.2 mmol/L (3.6-5.0); SODIUM 143.5 mmol/L (137-145); TOTAL PROTEIN 7.7 g/dL (6.3-8.2)
[2018-09-08 00:42] LABS: ACETAMINOPHEN < 10 ug/mL (10-30); SALICYLATE < 1.0 mg/dL (2.0-20.0)
--- NOTE | 2018-09-08 09:20 | ER Document Report ---
Doctor's Note Notes: 09/08/18 09:20 Patient has been seen and evaluated resting comfortably no acute distress. Laboratory values previous provider note and vital signs have been evaluated. Patient otherwise looks to be stable for disposition/transfer.
[2018-09-08] MEDS ORDERED: VENLAFAXINE HCL 75 MG CAP.SR.24H PO ONE (10:14)
--- NOTE | 2018-09-08 10:38 | EKG REPORT ---
SEVERITY:- NORMAL ECG - SINUS RHYTHM : Confirmed by: Velia Cardoso 08-Sep-2018 10:37:05
[2018-09-08] MEDS: LANSOPRAZOLE 15 MG TAB.RAP.DR PO SCH (10:49)
[2018-09-08] MEDS: IBUPROFEN 600 MG TABLET PO PRN ×2 (10:49→17:08)
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
[2018-09-08] MEDS: BUSPIRONE HCL 10 MG TABLET PO SCH (18:40)
[2018-09-08] MEDS: ACETAMINOPHEN 325 MG TABLET PO PRN (20:44)
[2018-09-08] MEDS ORDERED: OLANZAPINE 5 MG TABLET PO SCH (22:00)
[2018-09-09] MEDS: IBUPROFEN 600 MG TABLET PO PRN ×2 (00:14→10:33)
[2018-09-09] MEDS ORDERED: TRAZODONE HCL 50 MG TABLET PO ONE (00:22)
[2018-09-09 05:31] VITALS: BP 133/72
[2018-09-09] MEDS ORDERED: KETOROLAC TROMETHAMINE 10 MG TABLET PO ONE (09:39)
--- NOTE | 2018-09-09 09:40 | ER Document Report ---
Doctor's Note Notes: 09/09/18 09:40 ED psychiatric rounding note Patient stated he is feeling better this morning. He denies any suicidal ideation. Denies visual hallucinations. Having what looks to be his girlfriend or are talking at bedside. They are fine his only physical complaint was his knee pain he has a history of chronic knee pain and knee replacement from injury in the . There is some old bruising present. There is no significant laxity of the knee no redness no swelling no heat. Appears to be old by several days. We will give him a NSAID for pain and will have him follow-up with his orthopedic physician in [place] he stated he had already had a referral placed.
[2018-09-09] MEDS ORDERED: VENLAFAXINE HCL 75 MG CAP.SR.24H PO SCH (10:00)
[2018-09-09] MEDS: ACETAMINOPHEN 325 MG TABLET PO PRN (10:31)
[2018-09-09] MEDS: LANSOPRAZOLE 15 MG TAB.RAP.DR PO SCH (10:38)
[2018-09-09] MEDS: BUSPIRONE HCL 10 MG TABLET PO SCH (10:38)
--- NOTE | 2018-09-09 10:54 | ER Document Report ---
ED General - General Chief Complaint: Psych Problem Stated Complaint: SUICIDAL IDEATION, PAIN IN LEFT KNEE Time Seen by Provider: 09/07/18 23:36 TRAVEL OUTSIDE OF THE [place] IN LAST 30 DAYS: No - Related Data Allergies/Adverse Reactions: No Known Allergies Allergy (Verified 08/04/18 15:00) Past Medical History - General Information source: Patient - Social History Smoking Status: Current Some Day Smoker Chew tobacco use (# tins/day): No Frequency of alcohol use: Heavy Drug Abuse: None Lives with: Spouse/Significant other Family History: Reviewed & Not Pertinent Patient has suicidal ideation: No Patient has homicidal ideation: Yes Renal/ Medical History: Denies: Hx Peritoneal Dialysis GI Medical History: Reports: Hx Gastroesophageal Reflux Disease Musculoskeletal Medical History: Reports Hx Arthritis Psychiatric Medical History: Reports: Hx Post Traumatic Stress Disorder Past Surgical History: Reports: Hx Oral Surgery, Hx Orthopedic Surgery Physical Exam - Vital signs Vitals: Temp Pulse Resp BP Pulse Ox 97.9 F 85 20 131/85 H 99 09/07/18 23:01 09/07/18 23:01 09/07/18 23:01 09/07/18 23:01 09/07/18 23:01 Course - Vital Signs Vital signs: Temp Pulse Resp BP Pulse Ox 98.2 F 81 18 133/72 H 98 09/09/18 05:29 09/09/18 05:29 09/09/18 05:29 09/09/18 05:29 09/09/18 05:29 - Laboratory Result Diagrams: 09/08/18 00:13 09/08/18 00:13 Laboratory results interpreted by me: 09/08/18 09/08/18 00:13 00:13 RBC 4.10 L Hgb 13.2 L Total Bilirubin 1.4 H AST 161 H ALT 128 H Salicylates < 1.0 L Acetaminophen < 10 L Discharge - Discharge Clinical Impression: Suicidal ideation, Alcohol abuse, PTSD (post-traumatic stress disorder) Condition: Stable Disposition: HOME, SELF-CARE Additional Instructions: You have been evaluated by both medical and behavioral health teams and have been deemed appropriate for discharge. You have been provided prescriptions for Effexor 150 mg daily, BuSpar 10 mg twice daily, and Zyprexa 5 mg nightly; please take as directed. [facility] are [facility] 3-5 days. Post-Traumatic Stress Disorder You seem to have post-traumatic stress disorder (PTSD). PTSD can cause chronic anxiety, sleeping problems, social withdrawal, and drug abuse. It can occur following a traumatic personal experience such as an accident, rape, assault, or of a loved one, or after experiencing a war or natural disaster. Symptoms may be delayed for days or even years. Emotional numbing, the inability to express grief, is usually the earliest sign. There may be apathy or agitation, aggression, and inability to perform ordinary tasks. Often there are frightening nightmares and sudden, intruding memories of the trauma. Panic attacks and feelings of guilt are common. Alcohol and drug use make post- traumatic stress symptoms worse. Medication may be temporarily necessary to combat anxiety, panic attacks, and depression. Medicine should not be considered a "cure." You must deal with the trauma and prepare to go on. Group therapy is often helpful. This helps you "talk through" the problem with others who share your symptoms. We can provide you with an appropriate referral. DEPRESSION: Your evaluation reveals that you have mental depression. While symptoms may be vague, they often include disturbance of sleep, fatigue, loss of appetite , and general loss of interest in life. While depression may be a side effect of drugs, or a reaction to a major change in your life, many cases have no known cause. If depression is acute, and related to a major loss in your life, you can expect it to clear completely with time. If you have been depressed a long time , are prone to repeated bouts of depression or low mood, or have been thinking of suicide, get help. Depression can be treated with anti-depressant medication and counselling. Long-term depression will often take a few weeks to clear, even with appropriate medication. Follow-up care is important. SUICIDAL IDEATION: Suicidal ideation is a common medical term for thoughts about suicide, which may be as detailed as a formulated plan, without the suicidal act itself. Although most people who undergo suicidal ideation do not commit suicide, some go on to make suicide attempts. The range of suicidal ideation varies greatly from fleeting to detailed planning, role playing, and unsuccessful attempts. While thoughts about suicide are common, most people do not carry out serious actions to commit suicide. Based upon your evaluation and discussion with you, we do not believe you are currently at risk to act upon your thoughts of suicide. You have agreed to return to the Emergency Department, at any time , if you feel inclined to act upon your suicidal thoughts. FOLLOW-UP CARE: If you experience worsening or a significant change in your symptoms, notify the physician immediately or return to the Emergency Department at any time for re-evaluation. Prescriptions: Olanzapine [Zyprexa 5 mg Tablet] 5 mg PO QHS #15 tablet Buspirone HCl [Buspar 10 mg Tablet] 10 mg PO BID #30 tablet Venlafaxine HCl [Effexor 75 mg Tablet] 150 mg PO DAILY #30 tab Referrals: [facility] [Provider Group] - Follow up in 3-5 days [facility] [Outside] - Follow up as needed
== END 2018-09-09 11:55 | disposition home or self-care (01) ==
LOC: ER 22:49
DX: R45.851 Suicidal ideations (principal); F10.10 Alcohol abuse, uncomplicated; F43.10 Post-traumatic stress disorder, unspecified; F17.200 Nicotine dependence, unspecified, uncomplicated; G89.29 Other chronic pain; M25.562 Pain in left knee; Z96.652 Presence of left artificial knee joint
CPT/HCPCS: 93005; 99285; 36415; 80307 ×4; 85025; 80053; 81001; 93010; J3490

== ENCOUNTER 2018-09-12 19:11 | Emergency (ER) | payer OTHER ==
[2018-09-12 19:23] VITALS: BP 127/68
[2018-09-12] MEDS ORDERED: LORAZEPAM INJ 2 MG/1 ML VIAL IM ONE (20:06)
--- NOTE | 2018-09-12 20:10 | ER Document Report ---
ED General - General Chief Complaint: Anxiety Stated Complaint: insomnia Time Seen by Provider: 09/12/18 19:56 Notes: Patient is a 33-year-old male with depression and PTSD and bipolar disorder that presents to the emergency department for chief complaint of agitation and insomnia. Patient was recently seen in the emergency department, under an IVC, as he was having suicidal ideations at that time, he had his medications adjusted, was discharged on Zyprexa, BuSpar, and a change in dose for his Effexor. [facility], was at the office, and they had told him that they would schedule him for an appointment tomorrow, he called to confirm this, they stated that they would not see him tomorrow that there were not able to, the patient became very frustrated, and he told the [facility] that "are you saying you are not able to see a disabled with suicidal ideations." His significant other over her this, and it was concerns that she wanted to him to come back to the emergency department today. At this time the patient denies any suicidal or homicidal ideations. He denies having any hallucinations auditory or visual. He denies owning any firearms, denies any alcohol or illicit drug us today. He otherwise just feels frustrated, he did not sleep well while he was in the emergency department of the last several days , and only had a few hours of sleep, he thinks it may be related to the changes in his medications. He denies any other complaints. Past Medical History: PTSD, bipolar disorder, depression Past Surgical History: Orthopedic surgeries Social History: Denies current alcohol or illicit drug use, admits to smoking cigarettes. Family History: Reviewed and noncontributory for presenting illness Allergies: Reviewed, see documented allergy list. REVIEW OF SYSTEMS: Other than noted above, the 12 point review of systems was reviewed with the patient and were negative, all pertinent findings are included in the HPI. PHYSICAL EXAMINATION: Vital signs reviewed, nursing noted reviewed. GENERAL: Well-appearing, well-nourished and in no acute distress. HEAD: Atraumatic, normocephalic. EYES: Eyes appear normal, extraocular movements intact, sclera anicteric, conjunctiva are normal. ENT: nares patent, oropharynx clear without exudates. Moist mucous membranes. NECK: Normal range of motion, supple without lymphadenopathy LUNGS: Breath sounds clear to auscultation bilaterally and equal. No wheezes rales or rhonchi. HEART: Regular rate and rhythm without murmurs ABDOMEN: Soft, nontender, normoactive bowel sounds. No rebound, guarding, or rigidity. No masses appreciated. EXTREMITIES: Nontender, good range of motion, no pitting or edema. NEUROLOGICAL: No focal neurological deficits. Moves all extremities spontaneously Motor and sensory grossly intact on exam. PSYCH: Mildly anxious, but has good eye contact and history taking, and is insightful to his ideas SKIN: Warm, Dry, normal turgor, no rashes or lesions noted on exposed skin TRAVEL OUTSIDE OF THE [place] IN LAST 30 DAYS: No - Related Data Allergies/Adverse Reactions: No Known Allergies Allergy (Verified 08/04/18 15:00) Past Medical History - Social History Smoking Status: Never Smoker Chew tobacco use (# tins/day): No Frequency of alcohol use: None Drug Abuse: None Family History: Reviewed & Not Pertinent Patient has suicidal ideation: Yes Patient has homicidal ideation: No Renal/ Medical History: Denies: Hx Peritoneal Dialysis GI Medical History: Reports: Hx Gastroesophageal Reflux Disease Musculoskeletal Medical History: Reports Hx Arthritis Psychiatric Medical History: Reports: Hx Post Traumatic Stress Disorder Past Surgical History: Reports: Hx Oral Surgery, Hx Orthopedic Surgery Physical Exam - Vital signs Vitals: Temp Pulse Resp BP Pulse Ox 98.7 F 84 18 127/68 H 100 09/12/18 19:12 09/12/18 19:12 09/12/18 19:12 09/12/18 19:12 09/12/18 19:12 Course - Re-evaluation Re-evalutation: At this time the patient denies any suicidal homicidal ideations, he was just seen and had an evaluation and started on new medications, which she seems to be tolerating well, he did not get much sleep, which may be increasing his agitation and frustration, [facility], as the patient reports her not able to see him, the patient significant other is in the room, and states that she does feel safe with the patient, and they do have mobile crisis phone number, that they can call if needed, the patient does feel comfortable and safe going home, they do have a safety plan, that she would call to bring her back to the emergency department if there are any further concerns or issues. They will try to go back to the [facility] tomorrow, to reschedule. I will provide the patient with a dose of IM Ativan 2 mg to help him with sleep this evening, advised him to continue taking his medications as prescribed, patient was agreeable with this plan of care and I believe that he can be safely discharged to home in the care of his significant other, who seems to be very mindful of him, and patient seems to be self aware at this time as well. - Vital Signs Vital signs: Temp Pulse Resp BP Pulse Ox 98.7 F 84 18 127/68 H 100 09/12/18 19:12 09/12/18 19:12 09/12/18 19:12 09/12/18 19:12 09/12/18 19:12 Discharge - Discharge Clinical Impression: Insomnia Qualifiers: Insomnia type: unspecified Qualified Code(s): G47.00 - Insomnia, unspecified Condition: Stable Disposition: HOME, SELF-CARE Instructions: Anxiety ([facility]), Insomnia ([facility]) Additional Instructions: Please when you get home and get as much rest as possible, if you develop or have suicidal ideations again, or if you have any homicidal ideations, or develop any auditory or visual hallucinations, please return to the emergency department immediately, or call mobile crisis, if you have any concerns. Continue to try to get your follow-up appoint with the [facility]. Continue taking the medications prescribed from your previous visit. Referrals: [facility] [Provider Group] - Follow up as needed
== END 2018-09-12 20:17 | disposition home or self-care (01) ==
LOC: ER 19:11
DX: G47.00 Insomnia, unspecified (principal); F43.10 Post-traumatic stress disorder, unspecified; F31.9 Bipolar disorder, unspecified; Z79.899 Other long term (current) drug therapy
CPT/HCPCS: 99283; 96372; J2060

== ENCOUNTER 2018-09-17 20:28 | Emergency (ER) | payer OTHER ==
--- NOTE | 2018-09-17 21:01 | RADIOLOGY REPORT (SQ) ---
4 VIEWS OF THE RIGHT WRIST AND 2 VIEWS OF THE RIGHT FOREARM HISTORY: Trauma to right arm. COMPARISON: None. FINDINGS: Bone mineralization is normal. No acute fracture is seen. Joint spaces are preserved. Negative ulnar variance is seen. Mild swelling of the right wrist. IMPRESSION: No acute fracture.
[2018-09-17] MEDS ORDERED: HYDROCODONE/ACETAMINOPHEN 5-325 MG TABLET PO ONE (21:25)
--- NOTE | 2018-09-17 21:37 | ER Document Report ---
ED General - General Chief Complaint: Arm Injury Stated Complaint: ARM PAIN Time Seen by Provider: 09/17/18 20:57 Notes: Patient is a 33-year-old male that comes to the emergency department for chief complaint of injury to the right forearm and right knee. He states that he was changing a tire and the dali slipped and the car came down and it struck his forearm causing bruising, abrasions, swelling, pain. He also states he hit his right knee on the ground causing an abrasion and bleeding. He denies any other injuries. He is up-to-date on his tetanus within 5 years. TRAVEL OUTSIDE OF THE [place] IN LAST 30 DAYS: No - Related Data Allergies/Adverse Reactions: No Known Allergies Allergy (Verified 08/04/18 15:00) Past Medical History - General Information source: Patient - Social History Smoking Status: Never Smoker Frequency of alcohol use: None Drug Abuse: None Lives with: Family Family History: Reviewed & Not Pertinent Patient has suicidal ideation: No Patient has homicidal ideation: No Renal/ Medical History: Denies: Hx Peritoneal Dialysis GI Medical History: Reports: Hx Gastroesophageal Reflux Disease Musculoskeletal Medical History: Reports Hx Arthritis Psychiatric Medical History: Reports: Hx Post Traumatic Stress Disorder Past Surgical History: Reports: Hx Oral Surgery, Hx Orthopedic Surgery - Immunizations Immunizations up to date: Yes Hx Diphtheria, Pertussis, Tetanus Vaccination: Yes Review of Systems - Review of Systems Constitutional: No symptoms reported EENT: No symptoms reported Cardiovascular: No symptoms reported Respiratory: No symptoms reported Gastrointestinal: No symptoms reported Genitourinary: No symptoms reported Male Genitourinary: No symptoms reported Musculoskeletal: See HPI Skin: See HPI Hematologic/Lymphatic: No symptoms reported Neurological/Psychological: No symptoms reported Physical Exam - Vital signs Vitals: Temp Pulse Resp BP Pulse Ox 97.5 F 93 16 137/86 H 100 09/17/18 20:50 09/17/18 20:50 09/17/18 20:50 09/17/18 20:50 09/17/18 20:50 - Notes Notes: GENERAL: Alert, interacts well. No acute distress. HEAD: Normocephalic, atraumatic. EYES: Pupils equal, round, and reactive to light. Extraocular movements intact. ENT: Oral mucosa moist, tongue midline. Oropharynx unremarkable. Airway patent. Nares patent, no nasal septal hematoma, TM's intact. NECK: Full range of motion. Supple. Trachea midline. LUNGS: Clear to auscultation bilaterally, no wheezes, rales, or rhonchi. No respiratory distress. HEART: Regular rate and rhythm. No murmur ABDOMEN: Soft, non-tender. Non-distended. Bowel sounds present in all 4 quadrants. GENITOURINARY: Deferred EXTREMITIES: Right forearm with distal dorsal and volar bruising, minimal soft tissue swelling, small superficial abrasions, there is also bruising over the dorsum of the right hand at the wrist. Full range of motion of the fingers, normal sensation, normal capillary refill, radial pulses normal. There is snuffbox tenderness on the right hand. Left arm, left leg unremarkable. Is tenderness with palpation over the right knee at the proximal tibia and over the patella minimally, there are small superficial abrasions over the knee as well. Normal distal neurovascular exam. Normal lower extremity exam otherwise. NEUROLOGICAL: Alert and oriented x3. Normal speech. [cranial nerves II through XII grossly intact]. PSYCH: Normal affect, normal mood. SKIN: Warm, dry, normal turgor. No rashes or lesions noted. Course - Re-evaluation Re-evalutation: X-rays of the hand/wrist, forearm, knee without acute findings. Patient has bruising and abrasions consistent with his reported injury, however he has no distal neurovascular abnormalities or other locations of injury. My concern is that patient also has significant right-sided snuffbox tenderness after the injury. I discussed with patient. Patient placed in thumb spica as a result, referred to orthopedics, discussed the reason for this, discussed expectations, follow-up, return precautions in detail. Patient states understanding and agreement with plan. - Vital Signs Vital signs: Temp Pulse Resp BP Pulse Ox 97.5 F 86 18 128/81 H 100 09/17/18 20:50 09/18/18 00:36 09/18/18 00:36 09/18/18 00:36 09/18/18 00:36 Procedures - Immobilization right wrist Pre-Proc Neuro Vasc Exam: Normal Immobilizer type: Thumb spica Performed by: PCT Post-Proc Neuro Vasc Exam: Normal Alignment checked and good: Yes Discharge - Discharge Clinical Impression: Right leg pain, Abrasion of skin Right forearm injury Qualifiers: Encounter type: initial encounter Qualified Code(s): S59.911A - Unspecified injury of right forearm, initial encounter Right wrist injury Qualifiers: Encounter type: initial encounter Qualified Code(s): S69.91XA - Unspecified injury of right wrist, hand and finger(s), initial encounter Condition: Stable Disposition: HOME, SELF-CARE Additional Instructions: The x-rays of the forearm, wrist, knee, leg do not show any fractures, dislocation, or concerning findings. This appears to be soft tissue injury and skin abrasions only. However your examination is concerning for possible scaphoid injury/fracture which cannot be seen initially. Wear the splint and follow-up closely with the orthopedic referral for additional management. Call the listed referral tomorrow to set this up. Take Tylenol 1000 mg every 6 hours or ibuprofen 600 mg every 6 hours for pain, you can also combine these. Follow-up with primary care. Return for any concerning symptoms including severe swelling or pain. Referrals: SANA ARNOLD, [ACTIVE STAFF] - Follow up tomorrow
--- NOTE | 2018-09-17 22:31 | RADIOLOGY REPORT (SQ) ---
3 VIEWS OF THE RIGHT KNEE HISTORY: Bruising. Knee pain. COMPARISON: None. FINDINGS: Bone mineralization is normal. No acute fracture is seen. Mild joint space loss of the lateral compartment. Well-corticated fragment adjacent to the medial femoral condyle likely sequela of prior MCL injury. No joint effusion or soft tissue swelling. IMPRESSION: No acute fracture.
[2018-09-18 00:38] VITALS: BP 128/81
== END 2018-09-18 00:36 | disposition home or self-care (01) ==
LOC: ER 20:28
PROC: 2W3CX1Z Immobilization of Right Lower Arm using Splint (ICD-10-PCS; principal; 2018-09-17)
DX: S50.11XA Contusion of right forearm, initial encounter (principal); S69.91XA Unspecified injury of right wrist, hand and finger(s), initial encounter; S89.91XA Unspecified injury of right lower leg, initial encounter; M79.604 Pain in right leg; M79.89 Other specified soft tissue disorders; M79.631 Pain in right forearm; W22.8XXA Striking against or struck by other objects, initial encounter
CPT/HCPCS: 99283

== ENCOUNTER 2018-09-18 10:10 | Emergency (ER) | payer OTHER ==
[2018-09-18 10:26] VITALS: BP 98/76
[2018-09-18] MEDS ORDERED: HYDROCODONE/ACETAMINOPHEN 5-325 MG TABLET PO ONE (10:46)
--- NOTE | 2018-09-18 10:58 | ER Document Report ---
ED Hand/Wrist Injury - General Chief Complaint: Hand Pain Stated Complaint: FINGER PAIN/SWOLLEN Time Seen by Provider: 09/18/18 10:34 Mode of Arrival: Ambulatory Information source: Patient Notes: 33-year-old male presented to ED for complaint of pain to his fingers and hand. He states he was seen here yesterday after he injured his fingers and hand and arm and leg Dali they gave out. He states he initially injured his thumb with tenderness which has now included the rest of the hand. He states he has been taking Tylenol and Motrin with no help. He states he was given a splint yesterday which is actually made the swelling and pain worse. He states he has loosened and moved the Eddie wrap after he was discharged. Patient stated he needs something more than Tylenol and Motrin for pain. The splint that he had on was removed and a cockup splint applied that is Velcro and he can loosen and tightened. The x-rays from yesterday were reviewed there were no breaks. I have given him a written report and a CD of the x-rays from yesterday for him to follow[facility] with [facility]. TRAVEL OUTSIDE OF THE [place] IN LAST 30 DAYS: No - HPI Injury to: Arm, Hand Onset: Yesterday Where: Home, Outdoors Timing: Still present, Worse Quality of pain: Achy, Sharp, Throbbing Severity: Severe Pain Level: 5 Context: Other - Caught in a Dali - Related Data Allergies/Adverse Reactions: No Known Allergies Allergy (Verified 08/04/18 15:00) Past Medical History - General Information source: Patient - Social History Smoking Status: Never Smoker Chew tobacco use (# tins/day): No Frequency of alcohol use: None Drug Abuse: None Lives with: Spouse/Significant other Family History: Reviewed & Not Pertinent Patient has suicidal ideation: No Patient has homicidal ideation: No - Past Medical History Cardiac Medical History: Reports: None Pulmonary Medical History: Reports: None EENT Medical History: Reports: None Neurological Medical History: Reports: None Endocrine Medical History: Reports: None Renal/ Medical History: Reports: None Malignancy Medical History: Reports None GI Medical History: Reports: Hx Gastroesophageal Reflux Disease Musculoskeletal Medical History: Reports Hx Arthritis, Reports Hx Musculoskeletal Deformity, Reports Hx Musculoskeletal Trauma Skin Medical History: Reports None Psychiatric Medical History: Reports: Hx Post Traumatic Stress Disorder Traumatic Medical History: Reports: Hx Fractures - Knee Infectious Medical History: Reports: None Past Surgical History: Reports: Hx Oral Surgery, Hx Orthopedic Surgery - Immunizations Immunizations up to date: Yes Hx Diphtheria, Pertussis, Tetanus Vaccination: Yes Review of Systems - Review of Systems Notes: REVIEW OF SYSTEMS: CONSTITUTIONAL : Denies fever, chills, or sweats. Denies recent illness. EENT: Denies eye, ear, throat, or mouth pain or symptoms. Denies nasal or sinus congestion or discharge. Denies throat, tongue, or mouth swelling or difficulty swallowing. CARDIOVASCULAR: Denies chest pain. Denies palpitations or racing or irregular heart beat. Denies ankle edema. RESPIRATORY: Denies cough, cold, or chest congestion. Denies shortness of breath, difficulty breathing, or wheezing. GASTROINTESTINAL: Denies abdominal pain or distention. Denies nausea, vomiting , or diarrhea. Denies blood in vomitus, stools, or per rectum. Denies black, tarry stools. Denies constipation. GENITOURINARY: Denies difficulty urinating, painful urination, burning, frequency, blood in urine, or discharge. MUSCULOSKELETAL: Denies back or neck pain or stiffness. Planes of pain bruising throbbing and swelling to the right fingers wrist hand and arm the splint is making his hand feel a lot worse and he is to loosen it up and put it back on several times and it still hurts. SKIN: States that Dali fell down catching his hand between the tire and the dali. He states he initially injured the thumb and arm now his whole hand hurts and is swollen HEMATOLOGIC : Denies easy bruising or bleeding. LYMPHATIC: Denies swollen, enlarged glands. NEUROLOGICAL: Denies confusion or altered mental status. Denies passing out or loss of consciousness. Denies dizziness or lightheadedness. Denies headache. Denies weakness or paralysis or loss of use of either side. Denies problems with gait or speech. Denies sensory loss, numbness, or tingling. Denies seizures. PSYCHIATRIC: Denies anxiety or stress. Denies depression, suicidal ideation, or homicidal ideation. ALL OTHER SYSTEMS REVIEWED AND NEGATIVE. Dictation was performed using [employer] voice recognition software PHYSICAL EXAMINATION: GENERAL: Well-appearing, well-nourished and in no acute distress. HEAD: Atraumatic, normocephalic. EYES: Pupils equal round and reactive to light, extraocular movements intact, sclera anicteric, conjunctiva are normal. ENT: Nares patent, oropharynx clear without exudates. Moist mucous membranes. NECK: Normal range of motion, supple without lymphadenopathy LUNGS: Breath sounds clear to auscultation bilaterally and equal. No wheezes rales or rhonchi. HEART: Regular rate and rhythm without murmurs ABDOMEN: Soft, nontender, nondistended abdomen. No guarding, no rebound. No masses appreciated. Musculoskeletal: Tenderness to the right arm and hand and wrist. Bruising to the right forearm wrist. Full range of motion to the wrist and fingers. NEUROLOGICAL: Cranial nerves grossly intact. Normal speech, normal gait. Normal sensory, motor exams PSYCH: Normal mood, normal affect. SKIN: Bruising to the forearm dorsal and volar minimal tissue swelling to the forearm has full range of motion to the wrist and fingers, cap refill brisk, complains of tenderness to the complete hand wrist and forearm. Physical Exam - Vital signs Vitals: Temp Pulse Resp BP Pulse Ox 97.4 F 100 20 98/76 L 100 09/18/18 10:24 09/18/18 10:24 09/18/18 10:24 09/18/18 10:24 09/18/18 10:24 Course - Vital Signs Vital signs: Temp Pulse Resp BP Pulse Ox 97.4 F 100 20 98/76 L 100 09/18/18 10:24 09/18/18 10:24 09/18/18 10:24 09/18/18 10:24 09/18/18 10:24 Procedures - Immobilization Right Wrist Time completed: 10:50 Pre-Proc Neuro Vasc Exam: Normal Immobilizer type: Cock-up Performed by: PCT Post-Proc Neuro Vasc Exam: Normal Alignment checked and good: Yes Discharge - Discharge Clinical Impression: Right wrist injury Qualifiers: Encounter type: subsequent encounter Qualified Code(s): S69.91XD - Unspecified injury of right wrist, hand and finger(s), subsequent encounter Condition: Stable Disposition: HOME, SELF-CARE Additional Instructions: You were seen yesterday for injury to your wrist. You had multiple x-rays which were negative for any acute fractures. I have given you a CD of the x- rays for you to [facility] to [facility]. SPLINT PRECAUTIONS: A splint has been placed. This will protect the area while healing begins. Your problem does NOT normally require a cast. It MUST, however, be held still! Keep the splint on ALL THE TIME until instructed to remove it by the doctor. As you begin to use the area, be careful. You shouldn't do anything which causes discomfort -- you may disturb the injury even with the splint in place. After the initial period of rest and elevation, if splint does not prevent pain when you move, come back. You may require placement of a different splint , or a cast. If there is unexpected severe pain, or numbness, discoloration, or swelling beyond the splint, you should return at once. If you feel that the splint has broken or become loose, come back. ICE & ELEVATION: Apply ice packs frequently against the painful area. Many different schedules are recommended, such as "20 minutes on, 20 minutes off" or "one hour ice, two hours rest." If you need to work, you may need to go longer between ice treatments. You should plan to have the area ice packed AT LEAST one- fourth of the time. The ice should be applied over the wrap, tape, or splint, or over a layer of cloth -- not directly against the skin. Some ice bags have a built-in cloth and can be put directly on the skin. Your injured part should be elevated as much as possible over the next 48 hours. Try to keep the injury above the level of the heart. Avoid use of the injured area. Elevation and rest will decrease the swelling. USE OF VKEO-URN-ILAJVVK IBUPROFEN: Ibuprofen (Advil, Nuprin, Medipren, Motrin IB) is a medication for fever and pain control. In addition, it has anti- inflammatory effects which may be beneficial, especially in the treatment of injuries. It's best to take ibuprofen with food. Persons with ulcer disease or allergy to aspirin should notify their physician of this before taking ibuprofen. Ibuprofen can be given every four to six hours, for a total of four doses daily. Age Pain or fever dose Antiinflammatory dose 6-8 yr 200 mg (1 tab) 200 mg (1 tab) 9-11 yr 200 mg (1 tab) 200-400 mg (1-2 tab) 11-14 yr 200-400 mg (1-2 tab) 400 mg (2 tab) 15-adult 400 mg (2 tab) 600 mg (3 tab) ORAL NARCOTIC MEDICATION: You have been given a [place] for pain control. This medication is a narcotic. It's best taken with food, as nausea can result if taken on an empty stomach. Don't operate machinery or drive within six hours of taking this medication. Do not combine this medicine with alcohol, or with any medication which can cause sedation (such as cold tablets or sleeping pills) unless you get permission from the physician. Narcotics tend to cause constipation. If possible, drink plenty of fluids and eat a diet high in fiber and fruits. Please be aware that prescription narcotics also have the potential for abuse. People become addicted to these medications because of the general sense of wellbeing that they induce. This feeling along with a significant reduction in tension, anxiety, and aggression provides a stimulating seductive quality to these drugs. Once your pain is under control, we encourage you to discard your unused narcotics. FOLLOW-UP CARE: If you have been referred to a physician for follow-up care, call the physician s office for an appointment as you were instructed or within the next two days. If you experience worsening or a significant change in your symptoms, notify the physician immediately or return to the Emergency Department at any time for re-evaluation. [facility] - Follow up as needed
== END 2018-09-18 10:57 | disposition home or self-care (01) ==
LOC: ER 10:10
DX: S60.211A Contusion of right wrist, initial encounter (principal); S50.11XA Contusion of right forearm, initial encounter; M79.89 Other specified soft tissue disorders; W23.0XXA Caught, crushed, jammed, or pinched between moving objects, initial encounter; Y92.009 Unspecified place in unspecified non-institutional (private) residence as the place of occurrence of the external cause
CPT/HCPCS: 99283; L3908

== ENCOUNTER 2018-09-28 21:00 | Emergency (ER) | payer OTHER ==
--- NOTE | 2018-09-28 22:00 | ER Document Report ---
ED GI/ - General Mode of Arrival: Ambulatory Information source: Patient TRAVEL OUTSIDE OF THE [place] IN LAST 30 DAYS: No <YESICA KELLER - Last Filed: 09/29/18 03:43> <JENNIFFER CHOPRA - Last Filed: 09/29/18 04:44> - General Chief Complaint: Abdominal Pain Stated Complaint: ABDOMINAL PAIN Time Seen by Provider: 09/28/18 21:50 Notes: Patient is a 33-year-old male who presents to the emergency department today with complaints of upper abdominal pain that radiates to his back when breathing deeply. Patient states that he has a history of pancreatitis and his pain today feels similar to his pancreatitis in the past other than that the radiation of pain to his back is new. Patient states he drank "2 beers" last night at a "[employer] promotion" but has not consumed alcohol in excess recently. Patient states when he initially was diagnosed with pancreatitis he was drinking EtOH heavily. Patient also mentions noticing blood in his stool for the last [facility]. Patient describes blood as "looking like a period in the toilet". Patient states he has had associated vomiting without blood. Patient denies any fevers. (YESICA KELLER) - Related Data Allergies/Adverse Reactions: No Known Allergies Allergy (Verified 08/04/18 15:00) Past Medical History - General Information source: Patient - Social History Smoking Status: Current Every Day Smoker Cigarette use (# per day): Yes Frequency of alcohol use: None Drug Abuse: None Lives with: Family Family History: Reviewed & Not Pertinent GI Medical History: Reports: Hx Gastroesophageal Reflux Disease Musculoskeletal Medical History: Reports Hx Arthritis, Reports Hx Musculoskeletal Deformity, Reports Hx Musculoskeletal Trauma Psychiatric Medical History: Reports: Hx Post Traumatic Stress Disorder Traumatic Medical History: Reports: Hx Fractures - Knee Past Surgical History: Reports: Hx Oral Surgery, Hx Orthopedic Surgery - Immunizations Immunizations up to date: Yes Hx Diphtheria, Pertussis, Tetanus Vaccination: Yes <YESICA KELLER - Last Filed: 09/29/18 03:43> Review of Systems - Review of Systems Constitutional: denies: Fever EENT: No symptoms reported Cardiovascular: No symptoms reported Respiratory: No symptoms reported Gastrointestinal: See HPI, Abdominal pain, Vomiting, Rectal bleeding. denies: Blood in vomit Genitourinary: No symptoms reported Male Genitourinary: No symptoms reported Musculoskeletal: No symptoms reported Skin: No symptoms reported Hematologic/Lymphatic: No symptoms reported Neurological/Psychological: No symptoms reported -: Yes All other systems reviewed and negative <YESICA KELLER - Last Filed: 09/29/18 03:43> Physical Exam <YESICA KELLER - Last Filed: 09/29/18 03:43> <JENNIFFER CHOPRA - Last Filed: 09/29/18 04:44> - Vital signs Vitals: Temp Pulse Resp BP Pulse Ox 97.4 F 94 20 126/76 H 100 09/28/18 21:06 09/28/18 21:06 09/28/18 21:06 09/28/18 21:06 09/28/18 21:06 - Notes Notes: PHYSICAL EXAM GENERAL: Alert, interacts well. Appears mildly uncomfortable. HEAD: Normocephalic, atraumatic. EYES: Pupils equal, round, and reactive to light. Extraocular movements intact. ENT: Oral mucosa moist, tongue midline. NECK: Full range of motion. Supple. Trachea midline. LUNGS: Clear to auscultation bilaterally, no wheezes, rales, or rhonchi. No respiratory distress. HEART: Mildly tachycardic, regular rhythm. No murmurs, gallops, or rubs. ABDOMEN: Soft, diffuse abdominal tenderness with palpation with the exception of the right lower quadrant. Non-distended. Bowel sounds present in all 4 quadrants. No guarding, rigidity, or rebound. RECTAL: No anal fissure. No hemorrhoids. No gross blood. EXTREMITIES: Moves all 4 extremities spontaneously. NEUROLOGICAL: Alert and oriented x3. Normal speech. PSYCH: Normal affect, normal mood. SKIN: Warm, dry, normal turgor. No rashes or lesions noted. No bruising to abdomen or back. (YESICA KELLER) Course - Laboratory Result Diagrams: 09/28/18 22:13 09/28/18 22:13 <YESICA KELLER - Last Filed: 09/29/18 03:43> - Laboratory Result Diagrams: 09/28/18 22:13 09/28/18 22:13 <JENNIFFER CHOPRA - Last Filed: 09/29/18 04:44> - Re-evaluation Re-evalutation: 09/29/18 00:11 CBC unremarkable, CMP shows elevated LFTs, elevated lipase at 2671.9, serum alcohol is elevated at 161, this is not consistent with his history of only having had 2 beers a day ago. Abdominal ultrasound does not show any signs of cholelithiasis or cholecystitis. Discussed with patient that the ultimate goal is to control his pain and get him able to tolerate clear liquid oral intake and discharged home with oral pain medications and antinausea medications. Patient is actively heaving in the room so we will switch from Zofran to Reglan. 09/29/18 01:15 Discussed elevated alcohol level with patient, he admits that he is an alcoholic and since having 2 beers approximately 24 hours ago he has been continuing to drink. Patient apologized for lying to me, then apologized to his fiance for beginning to drink again and for lying to her as well. He already is on venlafaxine through the [place] and is set to have his first counseling appointment this week, states that he is going to return to AA meetings. He is still comfortable being discharged to home. Will be given to dispense pack of [place] and Zofran. Discharged to home. (JENNIFFER CHOPRA) - Vital Signs Vital signs: Temp Pulse Resp BP Pulse Ox 97.4 F 89 16 121/73 97 09/28/18 21:06 09/29/18 02:31 09/29/18 02:31 09/29/18 02:31 09/29/18 02:31 - Laboratory Laboratory results interpreted by me: 09/28/18 09/28/18 22:13 22:13 RDW 14.4 H Sodium 146.3 H AST 430 H ALT 233 H Alkaline Phosphatase 131 H Total Protein 8.3 H Lipase 2671.9 H Discharge <YESICA KELLER - Last Filed: 09/29/18 03:43> <JENNIFFER CHOPRA - Last Filed: 09/29/18 04:44> - Discharge Clinical Impression: Alcohol abuse Pancreatitis Qualifiers: Chronicity: acute Pancreatitis type: alcohol induced Acute pancreatitis complication: no infection or necrosis Qualified Code(s): K85.20 - Alcohol induced acute pancreatitis without necrosis or infection Condition: Stable Disposition: HOME, SELF-CARE Additional Instructions: Pancreatitis Pancreatitis is an inflammation of the pancreas, an organ at the back of your abdomen. The pancreas produces insulin and enzymes that digest your food. Pancreatitis can be caused by gallstones in the bile duct, by alcohol or viruses, or by excess fat or calcium in the blood stream. Yours appears to be caused by alcohol. The usual symptoms of pancreatitis are pain in the pit of the stomach that goes straight through to the back, vomiting, and low-grade fever. Severe cases require hospital admission, but many patients with mild pancreatitis do well at home. You will probably need medicine for pain and for vomiting. Sometimes we prescribe medicine to decrease stomach acid secretion and to decrease flow of pancreatic juices. Start with a diet of clear liquids (soda pop, juices). When the pain is decreasing, you can add some simple starches (potato, toast, applesauce). Avoid proteins and fats until you are completely painfree. When you're better, your doctor may suggest treatment to prevent future pancreatitis (such as gallbladder removal). Avoid alcohol forever. Get immediate treatment for any future episodes. Contact your doctor at once or return here if you have increasing pain, shortness of breath, general swelling, increasing size of the abdomen, continued vomiting, muscle spasms, or other new symptoms. You shoiuld not drink alcohol ever again. Prescriptions: Ondansetron [Zofran Odt 4 mg Tablet] 1 - 2 tab PO Q4H PRN #15 tab.rapdis PRN Reason: For Nausea/Vomiting Oxycodone HCl/Acetaminophen [Percocet 5-325 mg Tablet] 1 - 2 tab PO Q4H PRN #15 tablet PRN Reason: Forms: Parent Work Note [facility] - Follow up as needed Scribe Attestation: 09/29/18 04:44 I personally performed the services described in the documentation, reviewed and edited the documentation which was dictated to the scribe in my presence, and it accurately records my words and actions. (JENNIFFER CHOPRA) Scribe Documentation - Scribe Written by Clementina:: Clementina Hampton, 09/28/2018 [id number] acting as scribe for :: [place] <YESICA KELLER - Last Filed: 09/29/18 03:43>
[2018-09-28] MEDS ORDERED: ONDANSETRON HCL INJ/PF 4 MG/2 ML SDV IV ONE (22:07)
[2018-09-28] MEDS ORDERED: NORMAL SALINE 1000 ML 1,000 ML IV PRN (22:08)
[2018-09-28] MEDS ORDERED: HYDROMORPHONE HCL INJ/PF 2 MG/ML AMPULE IV ONE ×2 (22:08→23:50)
[2018-09-28 22:20] LABS: ABSOLUTE BASOPHILS # (AUTO) 0.1 10^3/uL (0.0-0.2); ABSOLUTE EOSINOPHILS # (AUTO) 0.2 10^3/uL (0.0-0.6); ABSOLUTE LYMPHOCYTES (AUTO) 2.1 10^3/uL (0.5-4.7); ABSOLUTE MONOCYTES (AUTO) 0.5 10^3/uL (0.1-1.4); ABSOLUTE NEUT (AUTO) 2.8 10^3/uL (1.7-8.2); BASOPHILS % (AUTO) 1.3 % (0-2); EOSINOPHILS % (AUTO) 2.7 % (0-6); HEMATOCRIT 44.6 % (37.9-51.0); HEMOGLOBIN 15.5 g/dL (13.5-17.0); LYMPHOCYTES % (AUTO) 36.9 % (13-45); MEAN CORPUSCULAR HEMOGLOBIN 32.3 pg (27.0-33.4); MEAN CORPUSCULAR HGB CONC 34.6 g/dL (32.0-36.0); MEAN CORPUSCULAR VOLUME 93 fl (80-97); MONOCYTES % (AUTO) 8.8 % (3-13); PLATELET COUNT 285 10^3/uL (150-450); RED BLOOD COUNT 4.79 10^6/uL (4.35-5.55); RED CELL DISTRIBUTION WIDTH 14.4 % (11.5-14.0); SEGMENTED NEUTROPHILS % (AUTO) 50.3 % (42-78); TOTAL CELLS COUNTED % (AUTO) 100 %; WHITE BLOOD COUNT 5.6 10^3/uL (4.0-10.5)
[2018-09-28 22:35] LABS: ALANINE AMINOTRANSFERASE 233 U/L (21-72); ALBUMIN 4.5 g/dL (3.5-5.0); ALKALINE PHOSPHATASE 131 U/L (38-126); ANION GAP 14 (5-19); ASPARTATE AMINO TRANSFERASE 430 U/L (17-59); BILIRUBIN,DIRECT 0.4 mg/dL (0.0-0.4); BILIRUBIN,TOTAL 1.3 mg/dL (0.2-1.3); BLOOD UREA NITROGEN 15 mg/dL (7-20); CALCIUM 9.3 mg/dL (8.4-10.2); CARBON DIOXIDE 28 mmol/L (22-30); CHLORIDE 104 mmol/L (98-107); GLUCOSE 108 mg/dL (75-110); SODIUM 146.3 mmol/L (137-145); TOTAL PROTEIN 8.3 g/dL (6.3-8.2)
[2018-09-28 22:45] LABS: LIPASE 2671.9 U/L (23-300)
--- NOTE | 2018-09-28 23:46 | RADIOLOGY REPORT (SQ) ---
CLINICAL HISTORY: pancreatitis and RUQ pain COMPARISON: None. TECHNIQUE: US ABDOMEN LIMITED on 09/28/2018 10:08 PM CORPORATE TRAINER FINDINGS: Liver is mildly fatty in echotexture. Portal vein is patent. Gallbladder is normally distended without wall, pericholecystic fluid or sonographic Arora sign. Common bile measures 3 mm. Right kidney measures 9.8 cm in greatest dimension without hydronephrosis. IMPRESSION: Hepatic steatosis. Normal gallbladder.
[2018-09-28] MEDS ORDERED: OXYCODONE-ACETAMINOPHEN 5-325 MG TABLET PO ONE (23:50)
[2018-09-29] MEDS ORDERED: HYDROMORPHONE HCL INJ/PF 2 MG/ML AMPULE IV ONE ×2 (00:10→01:14)
[2018-09-29] MEDS ORDERED: METOCLOPRAMIDE HCL INJ/PF 10 MG/2 ML SDV IV ONE (00:10)
[2018-09-29 01:15] LABS: APPEARANCE,URINE CLEAR; BILIRUBIN,URINE NEGATIVE (NEGATIVE); COLOR,URINE YELLOW; GLUCOSE, URINE NEGATIVE (NEGATIVE); KETONES,URINE NEGATIVE (NEGATIVE); LEUKOCYTE ESTERASE,URINE NEGATIVE (NEGATIVE); NITRITE,URINE NEGATIVE (NEGATIVE); PROTEIN,URINE NEGATIVE (NEGATIVE); URINE SPECIFIC GRAVITY 1.012; UROBILINOGEN,URINE NEGATIVE mg/dL (<2.0)
[2018-09-29] MEDS ORDERED: HYDROCODONE/ACETAMINOPHEN 5-325 MG (6 TAB/ER DISP) PO PRN (01:22)
[2018-09-29] MEDS ORDERED: ONDANSETRON ODT 4 MG TAB (6 TAB/ER DISP) PO PRN (01:22)
[2018-09-29 02:34] VITALS: BP 121/73
== END 2018-09-29 02:31 | disposition home or self-care (01) ==
LOC: ER 21:00
DX: K85.20 Alcohol induced acute pancreatitis without necrosis or infection (principal); F10.10 Alcohol abuse, uncomplicated; R10.10 Upper abdominal pain, unspecified; R11.10 Vomiting, unspecified; F17.210 Nicotine dependence, cigarettes, uncomplicated
CPT/HCPCS: 96376; 99284; 96361; 96374; 96375; 36415; 80307; 83690; 85025; 82272; 80053; 81001; 76705; J2765; J1170 ×2; J2405; J7030

== ENCOUNTER 2018-10-15 12:29 | Emergency (ER) | payer OTHER ==
[2018-10-15] MEDS ORDERED: NORMAL SALINE 1000 ML 1,000 ML IV ONE (12:45)
[2018-10-15] MEDS ORDERED: KETOROLAC TROMETHAMINE INJ/PF 30 MG/1 ML SDV IV ONE (12:45)
[2018-10-15] MEDS ORDERED: ONDANSETRON HCL INJ/PF 4 MG/2 ML SDV IV ONE (12:45)
--- NOTE | 2018-10-15 12:53 | ER Document Report ---
ED Medical Screen (RME) - General Chief Complaint: Abdominal Pain Stated Complaint: SHARP ABDOMINAL PAIN Time Seen by Provider: 10/15/18 12:45 Mode of Arrival: Wheelchair Information source: Patient TRAVEL OUTSIDE OF THE [place] IN LAST 30 DAYS: No - HPI Patient complains to provider of: abd pain Onset: Just prior to arrival - pt has h/o chronic pancreatitis who had 2 beers earlier this afternoon. Developed severe pain with N/V/D - Related Data Allergies/Adverse Reactions: No Known Allergies Allergy (Verified 10/15/18 12:29) Past Medical History Renal/ Medical History: Denies: Hx Peritoneal Dialysis GI Medical History: Reports: Hx Gastroesophageal Reflux Disease Musculoskeltal Medical History: Reports Hx Arthritis, Reports Hx Musculoskeletal Deformity, Reports Hx Musculoskeletal Trauma Psychiatric Medical History: Reports: Hx Post Traumatic Stress Disorder Traumatic Medical History: Reports: Hx Fractures - Knee Past Surgical History: Reports: Hx Oral Surgery, Hx Orthopedic Surgery - Immunizations Immunizations up to date: Yes Hx Diphtheria, Pertussis, Tetanus Vaccination: Yes Physical Exam - Vital signs Vitals: Temp Pulse Resp BP Pulse Ox 97.8 F 124 H 22 H 128/99 H 98 10/15/18 12:31 10/15/18 12:31 10/15/18 12:31 10/15/18 12:31 10/15/18 12:31 Course - Vital Signs Vital signs: Temp Pulse Resp BP Pulse Ox 97.8 F 124 H 22 H 128/99 H 98 10/15/18 12:31 10/15/18 12:31 10/15/18 12:31 10/15/18 12:31 10/15/18 12:31 Doctor's Discharge - Discharge [facility]errals: [facility] - Follow up as needed
[2018-10-15 13:17] LABS: ABSOLUTE BASOPHILS # (AUTO) 0.1 10^3/uL (0.0-0.2); ABSOLUTE EOSINOPHILS # (AUTO) 0.2 10^3/uL (0.0-0.6); ABSOLUTE LYMPHOCYTES (AUTO) 2.5 10^3/uL (0.5-4.7); ABSOLUTE MONOCYTES (AUTO) 0.5 10^3/uL (0.1-1.4); ABSOLUTE NEUT (AUTO) 3.5 10^3/uL (1.7-8.2); EOSINOPHILS % (AUTO) 3.4 % (0-6); HEMATOCRIT 39.8 % (37.9-51.0); HEMOGLOBIN 13.6 g/dL (13.5-17.0); LYMPHOCYTES % (AUTO) 36.2 % (13-45); MEAN CORPUSCULAR HEMOGLOBIN 32.4 pg (27.0-33.4); MEAN CORPUSCULAR HGB CONC 34.3 g/dL (32.0-36.0); MEAN CORPUSCULAR VOLUME 94 fl (80-97); PLATELET COUNT 425 10^3/uL (150-450); RED BLOOD COUNT 4.22 10^6/uL (4.35-5.55); RED CELL DISTRIBUTION WIDTH 15.3 % (11.5-14.0); SEGMENTED NEUTROPHILS % (AUTO) 51.4 % (42-78); TOTAL CELLS COUNTED % (AUTO) 100 %; WHITE BLOOD COUNT 6.9 10^3/uL (4.0-10.5)
[2018-10-15 13:20] LABS: APPEARANCE,URINE CLEAR; BILIRUBIN,URINE NEGATIVE (NEGATIVE); COLOR,URINE COLORLESS; GLUCOSE, URINE NEGATIVE (NEGATIVE); KETONES,URINE NEGATIVE (NEGATIVE); LEUKOCYTE ESTERASE,URINE NEGATIVE (NEGATIVE); NITRITE,URINE NEGATIVE (NEGATIVE); PROTEIN,URINE NEGATIVE (NEGATIVE); URINE SPECIFIC GRAVITY 1.002; UROBILINOGEN,URINE NEGATIVE mg/dL (<2.0)
--- NOTE | 2018-10-15 13:26 | RADIOLOGY REPORT (SQ) ---
EXAM DESCRIPTION: ACUTE ABDOMEN SERIES COMPLETED DATE/TIME: 10/15/2018 1:15 pm REASON FOR STUDY: abd pain COMPARISON: 08/04/2018. NUMBER OF VIEWS: Three views. TECHNIQUE: Frontal chest, supine abdomen and upright/decubitus abdomen radiographic images acquired. LIMITATIONS: None. FINDINGS: CHEST: Lungs clear of infiltrates. FREE AIR: None. No abnormal gas collections. BOWEL GAS PATTERN: Nonobstructive pattern. No dilated loops or air fluid levels. CALCIFICATIONS: No suspicious calcifications. HARDWARE: None in the abdomen. SOFT TISSUES: No gross mass or suggestion of organomegaly. BONES: No acute fracture. No worrisome bone lesions. OTHER: No other significant finding. IMPRESSION: NO RADIOGRAPHIC EVIDENCE FOR ACUTE ABDOMINAL DISEASE. TECHNICAL DOCUMENTATION: JOB ID: [id number] [id number] 2010 [employer]- All Rights Reserved Reading location - IP/workstation name: [email or web address]
[2018-10-15 13:29] LABS: ALANINE AMINOTRANSFERASE 103 U/L (21-72); ALBUMIN 4.6 g/dL (3.5-5.0); ALKALINE PHOSPHATASE 94 U/L (38-126); ANION GAP 13 (5-19); ASPARTATE AMINO TRANSFERASE 242 U/L (17-59); BILIRUBIN,DIRECT 0.3 mg/dL (0.0-0.4); BILIRUBIN,TOTAL 0.8 mg/dL (0.2-1.3); BLOOD UREA NITROGEN 11 mg/dL (7-20); CALCIUM 9.6 mg/dL (8.4-10.2); CARBON DIOXIDE 25 mmol/L (22-30); CHLORIDE 103 mmol/L (98-107); GLUCOSE 79 mg/dL (75-110); POTASSIUM 4.2 mmol/L (3.6-5.0); SODIUM 140.9 mmol/L (137-145); TOTAL PROTEIN 8.3 g/dL (6.3-8.2)
[2018-10-15 13:43] LABS: LIPASE 89.3 U/L (23-300)
--- NOTE | 2018-10-15 13:48 | ER Document Report ---
ED GI/ - General Mode of Arrival: Wheelchair Information source: Patient TRAVEL OUTSIDE OF THE [place] IN LAST 30 DAYS: No <YESICA KELLER - Last Filed: 10/15/18 13:42> <WIL RIOS - Last Filed: 10/15/18 14:55> - General Chief Complaint: Abdominal Pain Stated Complaint: SHARP ABDOMINAL PAIN Time Seen by Provider: 10/15/18 12:45 Notes: 33-year-old male with chronic alcoholic pancreatitis that presents to the emergency department today with complaints of upper abdominal pain. Patient states that he drank a couple beers last night and a couple beers this morning despite during his last visit stating that he was going to begin going to AA meetings and refrain from drinking. When asked why he began drinking he states "because everyone was asleep and I was bored". Patient states that he has had bloody diarrhea which is a chronic issue for him. Patient states his pain radiates to his back which is normal for him when he has pancreatitis flares. Patient denies any vomiting. (YESICA KELLER) The patient and his girlfriend have been to the emergency room repeatedly over the past 2 months. She was actually here this morning when I first came in and was being discharged after coming in for abdominal pain related to drinking alcohol last night. The patient reports that the bloody diarrhea is a chronic off and on problem, but then also states he thinks is due to some medication changes. Review of his records shows that his hemoglobin today is about the same that it has been on most of his visits in August of this year. (WIL RIOS) - Related Data Allergies/Adverse Reactions: No Known Allergies Allergy (Verified 10/15/18 12:29) Past Medical History - General Information source: Patient - Social History Smoking Status: Current Every Day Smoker Cigarette use (# per day): Yes Frequency of alcohol use: Heavy Drug Abuse: None Lives with: Family Family History: Reviewed & Not Pertinent Patient has suicidal ideation: No Patient has homicidal ideation: No GI Medical History: Reports: Hx Gastroesophageal Reflux Disease Musculoskeletal Medical History: Reports Hx Arthritis, Reports Hx Musculoskeletal Deformity, Reports Hx Musculoskeletal Trauma Psychiatric Medical History: Reports: Hx Post Traumatic Stress Disorder Traumatic Medical History: Reports: Hx Fractures - Knee Past Surgical History: Reports: Hx Oral Surgery, Hx Orthopedic Surgery - Immunizations Immunizations up to date: Yes Hx Diphtheria, Pertussis, Tetanus Vaccination: Yes <YESICA KELLER - Last Filed: 10/15/18 13:42> - Medical History Notes: Chronic pancreatitis (YESICA KELLER) Review of Systems - Review of Systems Constitutional: No symptoms reported EENT: No symptoms reported Cardiovascular: No symptoms reported Respiratory: No symptoms reported Gastrointestinal: See HPI, Abdominal pain, Other - bloody diarrhea. denies: Nausea, Vomiting Genitourinary: No symptoms reported Male Genitourinary: No symptoms reported Musculoskeletal: No symptoms reported Skin: No symptoms reported Hematologic/Lymphatic: No symptoms reported Neurological/Psychological: No symptoms reported -: Yes All other systems reviewed and negative <YESICA KELLER - Last Filed: 10/15/18 13:42> Physical Exam <YESICA KELLER - Last Filed: 10/15/18 13:42> - Vital signs Vitals: Temp Pulse Resp BP Pulse Ox 97.8 F 124 H 22 H 128/99 H 98 10/15/18 12:31 10/15/18 12:31 10/15/18 12:31 10/15/18 12:31 10/15/18 12:31 - Notes Notes: Physical Exam: General: Alert, appears somewhat uncomfortable. HEENT: Normocephalic. Atraumatic. PERRL. Extraocular movements intact. Oropharynx clear. Neck: Supple. Non-tender. Respiratory: No respiratory distress. Clear and equal breath sounds bilaterally. Cardiovascular: Regular rate and rhythm. Abdominal: Diffusely tender across the upper abdomen, mainly over the midline. No distension. Nearly absent bowel sounds. Back: Non-tender. No deformity or step off. Extremities: Moves all four extremities. Upper extremities: Normal inspection. Normal ROM. Lower extremities: Normal inspection. No edema. Normal ROM. Neurological: Normal cognition. AAOx4. Normal speech. Psychological: Normal affect. Normal Mood. Skin: Warm. Dry. Normal color. (YESICA KELLER) Course - Laboratory Result Diagrams: 10/15/18 12:54 10/15/18 12:54 <YESICA KELLER - Last Filed: 10/15/18 13:42> - Laboratory Result Diagrams: 10/15/18 12:54 10/15/18 12:54 - Diagnostic Test Radiology reviewed: Reports reviewed - Acute abdominal series does not show any acute process. <WIL RIOS - Last Filed: 10/15/18 14:55> - Re-evaluation Re-evalutation: 10/15/18 14:09 The patient's IV was disconnected at the saline lock so that he could go to the restroom. The nurse told me that when he returned from the restroom, reconnected the normal saline to the saline lock, however his technique involved putting the end of the IV connector in his mouth prior to connecting it to his saline lock. He reported that he did this and his girlfriend witnessed that and also reported that he did this. 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 When I was told that as I instructed the nurse to disconnect the saline and remove the saline lock. I am told that he would not allow her to restart the saline lock. He was given a specimen cup to collect his bloody diarrhea when he went to the restroom to urinate, but did not have any stool. 10/15/18 14:29 The patient's lipase today is in the lower normal range, suggesting this is not pancreatitis but rather alcoholic gastritis. 10/15/18 14:52 The patient was given a GI cocktail with Maalox and viscous lidocaine. He is requesting for pain medication. I did advise him that it was not appropriate to prescribe narcotic pain medicine for pain that is being caused by drinking alcohol when he has been warned so many times about this. He states that he was not requesting narcotics. (WIL RIOS) - Vital Signs Vital signs: Temp Pulse Resp BP Pulse Ox 97.8 F 124 H 22 H 128/99 H 98 10/15/18 12:31 10/15/18 12:31 10/15/18 12:31 10/15/18 12:31 10/15/18 12:31 - Laboratory Laboratory results interpreted by me: 10/15/18 10/15/18 12:54 12:54 RBC 4.22 L RDW 15.3 H AST 242 H ALT 103 H Total Protein 8.3 H Discharge <YESICA KELLER - Last Filed: 10/15/18 13:42> <WIL RIOS - Last Filed: 12/23/18 14:55> - Discharge Clinical Impression: Bloody diarrhea, Chronic alcohol abuse Acute alcoholic gastritis Qualifiers: Gastritis bleeding: presence of bleeding unspecified Qualified Code(s): K29.20 - Alcoholic gastritis without bleeding Condition: Stable Disposition: HOME, SELF-CARE Additional Instructions: Gastritis You have an inflammation of the stomach called gastritis. This commonly causes upper abdominal pain, nausea, and vomiting. In severe cases, bleeding of the stomach lining can occur. Gastritis can be caused by bacteria or viruses, alcohol, or stomach-irritating drugs. Begin with sips of clear liquids. Take increasing amounts of fluid over the first 24 hours. Then start small amounts of bland foods (such as dry toast, applesauce, mashed potato). Gradually resume your usual diet. You should take antacids every two hours until the pain has subsided. Aci d-suppressing drugs may be prescribed as well. Avoid aspirin, caffeine, tobacco, and alcohol. If the abdominal pain worsens, or there is evidence of major bleeding in the stomach (such as black, tarry stool, bloody or black vomit, or lightheadedness), you should return immediately. Call the doctor if you aren't improved in 24 to 36 hours. Take your omeprazole or Prilosec 2 times daily for the next few days. Take antacids such as Mylanta or Maalox every 2-3 hours for pain if needed. Eat a bland diet and avoid spicy and citrus or tangy type fluids. Avoid carbonated beverages and all alcoholic beverages. Follow-up with your primary care provider tomorrow if not improving. Return to the emergency room if your bloody diarrhea continues to be a problem today. RETURN TO THE EMERGENCY ROOM IF ANY NEW OR WORSENING SYMPTOMS. Prescriptions: Tramadol HCl [Ultram 50 mg Tablet] 50 mg PO ASDIR PRN #12 tablet PRN Reason: [facility]errals: [facility] [[facility]] - Follow up as needed Scribe Attestation: 10/15/18 14:06 I personally performed the services described in the documentation, reviewed and edited the documentation which was dictated to the scribe in my presence, and it accurately records my words and actions. (WIL RIOS) Scribe Documentation - Scribe Written by Clementina:: Clementina Hampton, 10/15/2018 [id number] acting as scribe for :: Ml <YESICA KELLER - Last Filed: 10/15/18 13:42>
[2018-10-15] MEDS ORDERED: LIDOCAINE 2% VISCOUS SOLN 20 ML UDCUP PO ONE (14:25)
[2018-10-15] MEDS ORDERED: MAG HYDROX/AL HYDROX/SIMETH SUSP 30 ML UDCUP PO ONE (14:25)
[2018-10-15] MEDS ORDERED: TRAMADOL HCL 50 MG TABLET PO ONE (14:54)
[2018-10-15 15:40] VITALS: BP 99/62
== END 2018-10-15 15:35 | disposition home or self-care (01) ==
LOC: ER 12:29
DX: K29.20 Alcoholic gastritis without bleeding (principal); F10.20 Alcohol dependence, uncomplicated; K86.0 Alcohol-induced chronic pancreatitis; R19.5 Other fecal abnormalities; R19.7 Diarrhea, unspecified; R10.10 Upper abdominal pain, unspecified; F17.210 Nicotine dependence, cigarettes, uncomplicated
CPT/HCPCS: 99284; 96361; 96374; 96375; 36415; 83690; 85025; 80053; 81001; 74022; J3490; J1885; J2405; J7030

== ENCOUNTER 2018-11-22 14:40 | Emergency (ER) | payer OTHER ==
[2018-11-22 14:52] VITALS: BP 115/68
--- NOTE | 2018-11-22 15:17 | ER Document Report ---
HPI - HPI Time Seen by Provider: 11/22/18 15:05 Pain Level: 4 Notes: Patient is a 33-year-old male with a history of chronic pancreatitis and chronic knee pain who presents emergency department complaining for a rash. Patient states that he is not here for his knee pain which was mentioned in the arrival note. Patient states that he always has knee pain. Patient states that he did start 2 medicines recently colchicine and allopurinol for gout, but has not had any acute pain otherwise. Patient states that he noticed the rash primarily to his arms bilaterally and there are only a few bumps that are noted. He does not recall any new chemicals, detergent, soap, or known insect bite. No recent travel. Denies drug allergies. The rash does not itch and is not painful. No other concerns or complaints. He is eating and drinking without difficulties. He is urinating normally and having normal bowel movements. Denies any headache, fever, neck pain, URI, sore throat, chest pain, palpitations, syncope, cough, shortness of breath, wheeze, dyspnea, abdominal pain, nausea/vomiting/diarrhea, urinary retention, dysuria, hematuria, loss of control of bowel or bladder, numbness/tingling, saddle anesthesia, muscle paralysis/weakness. - ROS Systems Reviewed and Negative: Yes All other systems reviewed and negative - REPRODUCTIVE Reproductive: DENIES: : Past Medical History - Social History Smoking Status: Unknown if Ever Smoked Family History: Reviewed & Not Pertinent Renal/ Medical History: Denies: Hx Peritoneal Dialysis GI Medical History: Reports: Hx Gastroesophageal Reflux Disease Musculoskeletal Medical History: Reports Hx Arthritis, Reports Hx Musculoskeletal Deformity, Reports Hx Musculoskeletal Trauma Psychiatric Medical History: Reports: Hx Post Traumatic Stress Disorder Traumatic Medical History: Reports: Hx Fractures - Knee Past Surgical History: Reports: Hx Oral Surgery, Hx Orthopedic Surgery - Immunizations Immunizations up to date: Yes Hx Diphtheria, Pertussis, Tetanus Vaccination: Yes Vertical Provider Document - CONSTITUTIONAL Agree With Documented VS: Yes Notes: PHYSICAL EXAMINATION: GENERAL: Well-appearing, well-nourished and in no acute distress. HEAD: Atraumatic, normocephalic. EYES: Pupils equal round and reactive to light, extraocular movements intact, sclera anicteric, conjunctiva are normal. ENT: EAC clear b/l. TM's intact b/l without erythema, fluid, or perforation. Nares patent and without discharge. oropharynx clear without exudates. No tonsilar hypertrophy or erythema. Moist mucous membranes. No sinus tenderness. NECK: Normal range of motion, supple without lymphadenopathy LUNGS: Breath sounds clear to auscultation bilaterally and equal. No wheezes rales or rhonchi. HEART: Regular rate and rhythm without murmurs, rubs, gallops. ABDOMEN: Soft, nontender, nondistended abdomen. No guarding, no rebound. No masses appreciated. Normal bowel sounds present. No CVA tenderness bilaterally. Musculoskeletal: FROM to passive/active. Strength 5+/5. Extremities: No cyanosis, clubbing, or edema b/l. Peripheral pulses 2+. Capillary refill less than 3 seconds. NEUROLOGICAL: Cranial nerves grossly intact. Normal speech, normal gait. Normal sensory, motor exams PSYCH: Normal mood, normal affect. SKIN: There are a few maculopapular areas to his forearms bilaterally and a couple lesions to his hands posteriorly sparing the finger web spacing palms/soles noted. There are nontender. No purulence, fluctuance, induration, or red streaking. No sloughing of tissue. No necrosis noted. - INFECTION CONTROL TRAVEL OUTSIDE OF THE [place] IN LAST 30 DAYS: No Course - Re-evaluation Re-evalutation: 11/22/18 15:14 Patient is an afebrile, well-hydrated, 33-year-old male who presents to the emergency department with a nonspecific skin rash, I do suspect this to be benign at this time. Vitals are acceptable without significant tachycardia, tachypnea, or hypoxia. PE is otherwise unremarkable. He does not appear to be SJS, necrotizing fasciitis, cellulitis, or other systemic emergent condition at this time. The patient and I have discussed the diagnosis and risks, and we agree with discharging home with close follow-up with the understanding that symptoms and presentations can change. We also discussed returning to the Emergency Department immediately if new or worsening symptoms occur. We have discussed the symptoms which are most concerning (e.g., changing or worsening pain, fever, numbness, weakness, cool or painful digits) that necessitate immediate return. Patient to recheck with his family doctor/dermatology next week. - Vital Signs Vital signs: Temp Pulse Resp BP Pulse Ox 98.8 F 102 H 16 115/68 100 11/22/18 14:51 11/22/18 14:51 11/22/18 14:51 11/22/18 14:51 11/22/18 14:51 Discharge - Discharge Clinical Impression: Rash and nonspecific skin eruption Condition: Stable Disposition: HOME, SELF-CARE Additional Instructions: Keep the skin clean Wash with soap and water Tylenol/ibuprofen if needed Triple antibiotic ointment daily Take medication as directed Monitor for any worsening symptoms Recheck with your PCM in 3-5 days Consider consult with General Surgeon for ongoing/worsening symptoms Return to the ED with any worsening symptoms and/or development of fever, headache, chest pain, palpitations, syncope, shortness of breath, trouble breathing, abdominal pain, n/v/d, abscess, purulent discharge, red streaks, worsening swelling, or other worsening symptoms that are concerning to you. Prescriptions: Diphenhydramine HCl [Benadryl] 50 mg PO TID #10 capsule Famotidine [Pepcid 20 mg Tablet] 20 mg PO DAILY #12 tablet [facility]: [facility] - Follow up as needed DEBORAH COPELAND DO [ACTIVE STAFF] - Follow up as needed
== END 2018-11-22 15:22 | disposition home or self-care (01) ==
LOC: ER 14:40
DX: R21 Rash and other nonspecific skin eruption (principal); M10.9 Gout, unspecified
CPT/HCPCS: 99283

== ENCOUNTER 2018-12-22 15:35 | Emergency (ER) | payer OTHER ==
[2018-12-22 16:43] LABS: ABSOLUTE BASOPHILS # (AUTO) 0.1 10^3/uL (0.0-0.2); ABSOLUTE EOSINOPHILS # (AUTO) 0.3 10^3/uL (0.0-0.6); ABSOLUTE LYMPHOCYTES (AUTO) 2.5 10^3/uL (0.5-4.7); ABSOLUTE MONOCYTES (AUTO) 0.3 10^3/uL (0.1-1.4); BASOPHILS % (AUTO) 2.4 % (0-2); EOSINOPHILS % (AUTO) 5.5 % (0-6); HEMATOCRIT 37.1 % (37.9-51.0); HEMOGLOBIN 12.8 g/dL (13.5-17.0); LYMPHOCYTES % (AUTO) 48.6 % (13-45); MEAN CORPUSCULAR HEMOGLOBIN 32.9 pg (27.0-33.4); MEAN CORPUSCULAR HGB CONC 34.6 g/dL (32.0-36.0); MEAN CORPUSCULAR VOLUME 95 fl (80-97); MONOCYTES % (AUTO) 5.2 % (3-13); PLATELET COUNT 293 10^3/uL (150-450); RED BLOOD COUNT 3.89 10^6/uL (4.35-5.55); RED CELL DISTRIBUTION WIDTH 14.1 % (11.5-14.0); SEGMENTED NEUTROPHILS % (AUTO) 38.3 % (42-78); TOTAL CELLS COUNTED % (AUTO) 100 %; WHITE BLOOD COUNT 5.2 10^3/uL (4.0-10.5)
[2018-12-22 16:47] LABS: APPEARANCE,URINE CLEAR; BILIRUBIN,URINE NEGATIVE (NEGATIVE); COLOR,URINE COLORLESS; GLUCOSE, URINE NEGATIVE (NEGATIVE); KETONES,URINE NEGATIVE (NEGATIVE); LEUKOCYTE ESTERASE,URINE TRACE (NEGATIVE); NITRITE,URINE NEGATIVE (NEGATIVE); PROTEIN,URINE NEGATIVE (NEGATIVE); URINE SPECIFIC GRAVITY 1.003; UROBILINOGEN,URINE NEGATIVE mg/dL (<2.0)
[2018-12-22 17:03] LABS: ALANINE AMINOTRANSFERASE 128 U/L (21-72); ALBUMIN 4.2 g/dL (3.5-5.0); ALCOHOL 256 mg/dL (NONE DETECTED); ALKALINE PHOSPHATASE 79 U/L (38-126); ANION GAP 13 (5-19); ASPARTATE AMINO TRANSFERASE 232 U/L (17-59); BILIRUBIN,DIRECT 0.4 mg/dL (0.0-0.4); BLOOD UREA NITROGEN 6 mg/dL (7-20); CALCIUM 9.3 mg/dL (8.4-10.2); CARBON DIOXIDE 25 mmol/L (22-30); CHLORIDE 110 mmol/L (98-107); GLUCOSE 94 mg/dL (75-110); POTASSIUM 4.5 mmol/L (3.6-5.0); SODIUM 147.7 mmol/L (137-145); TOTAL PROTEIN 7.3 g/dL (6.3-8.2)
[2018-12-22 17:05] LABS: ACETAMINOPHEN < 10 ug/mL (10-30); SALICYLATE < 1.0 mg/dL (2.0-20.0)
[2018-12-22 17:07] LABS: URINE AMPHETAMINES SCREEN NEGATIVE; URINE BARBITURATES SCREEN NEGATIVE; URINE BENZODIAZEPINES SCREEN NEGATIVE; URINE COCAINE SCREEN NEGATIVE; URINE MARIJUANA (THC) SCREEN NEGATIVE; URINE METHADONE SCREEN NEGATIVE; URINE PHENCYCLIDINE SCREEN NEGATIVE
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
[2018-12-22] MEDS ORDERED: KETOROLAC TROMETHAMINE 60 MG/2 ML SDV IM ONE ×2 (18:51→22:00)
--- NOTE | 2018-12-22 21:55 | EKG REPORT ---
SEVERITY:- NORMAL ECG - SINUS RHYTHM : Confirmed by: Velia Cardoso 22-Dec-2018 21:55:15
[2018-12-23] MEDS ORDERED: CYCLOBENZAPRINE HCL 10 MG TABLET PO ONE (03:27)
[2018-12-23] MEDS ORDERED: ACETAMINOPHEN 325 MG TABLET PO ONE ×2 (03:28→10:03)
--- NOTE | 2018-12-23 03:28 | ER Document Report ---
Doctor's Note Notes: 12/23/18 03:27 Patient complaining of chronic pain in his left knee, unrelieved by Toradol. States that he normally takes Flexeril and Percocet at home. Patient will be given Flexeril here. I am uncomfortable with the idea of giving him Percocet for his chronic knee pain until we have verified this with a pharmacy.
--- NOTE | 2018-12-23 09:17 | ER Document Report ---
Doctor's Note Notes: 12/23/18 10:25 33-year-old male seen here yesterday for intoxication and suicidal ideation. Patient feels much better at this time. Waiting on final recommendation from mental health but anticipate discharge today. Patient denies any suicidal ideation or homicidal ideation at this. I did give him his Effexor this morning because he felt like he needed it. States that he normally takes 150 mg a day. [facility] had [facility] long talk. Feel comfortable discharging at this time. 12/23/18 11:24 Discharge - Discharge Clinical Impression: Intoxication, PTSD (post-traumatic stress disorder), Alcohol abuse Depression Qualifiers: Depression Type: unspecified Qualified Code(s): F32.9 - Major depressive disorder, single episode, unspecified Condition: Stable Disposition: HOME, SELF-CARE Additional Instructions: You have been evaluated both medical and behavioral health teams and been deemed appropriate for discharge. You are encouraged to continue with your medication management and therapeutic services. CHRONIC ALCOHOLISM and ALCOHOL ABUSE: Your evaluation reveals evidence of chronic alcoholism, an addiction to alcohol. The tendency to alcoholism may be inherited. Chronic use of alcohol weakens muscles, causes fatty deposits in the liver, damages the stomach, makes you more prone to infections, and can cause defects in unborn children. In the long run, brain atrophy and cirrhosis of the liver result. You are also at greater risk for certain types of cancer, such as cancer of the mouth, throat, stomach, and liver. Counselling services are available to help you. In-hospital treatment programs often help. Support groups such as Alcoholics Anonymous can be very useful in beating this addiction. Your physician can make a referral for you. As alcoholics often are prone to other addictions, you should discuss your use of any other medications with the doctor. Post-Traumatic Stress Disorder You seem to have post-traumatic stress disorder (PTSD). PTSD can cause chronic anxiety, sleeping problems, social withdrawal, and drug abuse. It can occur following a traumatic personal experience such as an accident, rape, assault, or of a loved one, or after experiencing a war or natural disaster. Symptoms may be delayed for days or even years. Emotional numbing, the inability to express grief, is usually the earliest sign. There may be apathy or agitation, aggression, and inability to perform ordinary tasks. Often there are frightening nightmares and sudden, intruding memories of the trauma. Panic attacks and feelings of guilt are common. Alcohol and drug use make post- traumatic stress symptoms worse. Medication may be temporarily necessary to combat anxiety, panic attacks, and depression. Medicine should not be considered a "cure." You must deal with the trauma and prepare to go on. Group therapy is often helpful. This helps you "talk through" the problem with others who share your symptoms. We can provide you with an appropriate referral. AT ANY TIME, IF YOUR SYMPTOMS CHANGE SIGNIFICANTLY OR WORSEN OR YOU DEVELOP NEW SYMPTOMS, RETURN TO THE EMERGENCY DEPARTMENT IMMEDIATELY FOR RE-EVALUATION. Referrals: [facility] [Outside] - Follow up as needed
[2018-12-23] MEDS ORDERED: VENLAFAXINE HCL 75 MG TABLET PO ONE (10:03)
[2018-12-23 12:02] VITALS: BP 130/86
--- NOTE | 2018-12-23 14:59 | PSYCHOLOGICAL NOTE ---
Psych Note - Psych Note Date seen by psych provider: 12/23/18 Time seen by psych provider: 08:55 Psych Note: Reason for consult: Suicidal ideation Patient's fianc at bedside per patient's request Patient discloses that he is hoping that he will be able to be discharged as he has a "important interview this afternoon" that he does not want to miss. He reports that he came to [facility] because he was worried about his thoughts. He states that last week he was in penitentiary in [place] and did not receive any of his medications while in. He states that yesterday he had a "horrible interview" and started drinking when he got home. He confirms that he contacted his girlfriend for assistance and that is how he ended up at [facility]. He confirms he is still on medications originally recommended back in August by cathleen. He states that he did start going through some withdrawal while sitting in penitentiary has been back on the medication now for a couple of days. Patient was able to engage in problem solving such as reaching out to his fiance if he has another bad interview. He confirms that he is receiving therapeutic services in addition to the medication management. He reports he has an appointment every Tuesday however did miss last Tuesday because he was in penitentiary. He reports that he does have her cell phone number where he can reach out to her if in crisis. Patient is alert and orientated to person, place, time and circumstance. Mood is euthymic with congruent affect as evidenced by smiling laughing engaging with clinician. Patient denies current suicidal homicidal ideation. Admits to having passive suicidal ideation last night while under the influence and personally asked to come to [facility] ED because he did not trust himself. Delusions are absent behaviors congruent with an intact reality based presentation i.e. organized and linear thought process. Eye contact is well-maintained. Conversational speech is within normal rate, tone and prosody. Intellectual abilities appear to be within the average range. Attention and concentration are good. Insight, judgment, impulse control are fair. No medication recommendations at this time 1. Alcohol use disorder; moderate 2. PTSD Impression\\plan: Patient is recommended for rescind of IVC and is cleared from acute psychiatric serviced. Patent denies current suicidal ideation now that he is no longer under the influence. Patient has chronic suicidal ideation when under the influence, in addition to the patient just recently restarting medications after missing 4 doses. Patient demonstrates forward thinking with wanting to go a scheduled job interview. Patient's girlfriend confirms she will be part of the patient's discharge plan ie ensure he does not have access to medication or weapons and follows through with mental health recommendations. Dr. Arias was consulted on the care and management of this patient; attending physician is in agreement with recommendations and disposition.
== END 2018-12-23 12:02 | disposition home or self-care (01) ==
LOC: ER 15:35
DX: F10.129 Alcohol abuse with intoxication, unspecified (principal); F43.10 Post-traumatic stress disorder, unspecified; F32.9 Major depressive disorder, single episode, unspecified; R45.851 Suicidal ideations; F17.200 Nicotine dependence, unspecified, uncomplicated
CPT/HCPCS: 93005; 99285; 96372; 36415; 80307 ×4; 85025; 80053; 81001; 93010; J1885

== ENCOUNTER 2018-12-24 19:19 | Emergency (ER) | payer OTHER | END 2018-12-24 19:45 | disposition left against medical advice (07) | LOC: ER 19:19 | DX: Z53.21 Procedure and treatment not carried out due to patient leaving prior to being seen by health care provider (principal) ==

== ENCOUNTER 2019-01-08 16:42 | Emergency (ER) | payer OTHER ==
[2019-01-08 17:22] VITALS: BP 131/83
== END 2019-01-08 18:53 | disposition left against medical advice (07) ==
LOC: ER 16:42
DX: Z53.21 Procedure and treatment not carried out due to patient leaving prior to being seen by health care provider (principal); R10.9 Unspecified abdominal pain

== ENCOUNTER 2019-09-17 06:16 | Emergency (ER) | payer OTHER ==
--- NOTE | 2019-09-17 08:22 | ER Document Report ---
ED General - General Chief Complaint: Cough Stated Complaint: COUGH/SORE THROAT/NAUSEA Time Seen by Provider: 09/17/19 08:06 [facility] - Follow up in 3-5 days Notes: 34-year-old male presents with cough, congestion, sinus pressure for 1 week. Patient states he initially had a fever of 100.3F however this is resolved. Patient states he has been taking Mucinex without any relief. Patient was also complaining of some nausea however he attributes this to the cough. Patient denies any vomiting, abdominal pain, sore throat, ear pain, body aches. TRAVEL OUTSIDE OF THE [place] IN LAST 30 DAYS: No - Related Data Allergies/Adverse Reactions: No Known Allergies Allergy (Verified 02/17/19 08:49) Home Medications: effexor, buspar, omeprazole, ducolax Past Medical History - Social History Smoking Status: Current Every Day Smoker Frequency of alcohol use: Occasional Drug Abuse: None Family History: Reviewed & Not Pertinent Patient has suicidal ideation: No Patient has homicidal ideation: No - Past Medical History Cardiac Medical History: Reports: Hx Hypertension Renal/ Medical History: Denies: Hx Peritoneal Dialysis GI Medical History: Reports: Hx Gastroesophageal Reflux Disease Musculoskeletal Medical History: Reports Hx Arthritis, Reports Hx Musculoskeletal Deformity, Reports Hx Musculoskeletal Trauma Psychiatric Medical History: Reports: Hx Post Traumatic Stress Disorder Traumatic Medical History: Reports: Hx Fractures - Knee Past Surgical History: Reports: Hx Oral Surgery, Hx Orthopedic Surgery - L knee replacement - Immunizations Immunizations up to date: Yes Hx Diphtheria, Pertussis, Tetanus Vaccination: Yes Review of Systems - Review of Systems Notes: Constitutional: Negative for fever. HENT: Negative for sore throat. Eyes: Negative for visual changes. Cardiovascular: Negative for chest pain. Respiratory: Positive for cough and congestion. Negative for shortness of breath. Gastrointestinal: Positive for nausea. Negative for abdominal pain, vomiting or diarrhea. Genitourinary: Negative for dysuria. Musculoskeletal: Negative for back pain. Skin: Negative for rash. Neurological: Negative for headaches, weakness or numbness. 10 point ROS negative except as marked above and in HPI. Physical Exam - Vital signs Vitals: Temp Pulse Resp BP Pulse Ox 98.0 F 82 18 133/83 H 100 09/17/19 06:21 09/17/19 06:21 09/17/19 06:21 09/17/19 06:21 09/17/19 06:21 - Notes Notes: GENERAL: Well-appearing, well-nourished and in no acute distress. HEAD: Atraumatic, normocephalic. EYES: Extraocular movements intact, sclera anicteric, conjunctiva are normal. ENT: TMs normal, nares patent, oropharynx clear without exudates. Moist mucous membranes. Uvula midline without edema. No tonsillar hypertrophy. No muffled voice. No trismus. NECK: Normal range of motion, supple without lymphadenopathy or JVD. LUNGS: Dry cough noted. Breath sounds clear to auscultation bilaterally and equal. No wheezes rales or rhonchi. HEART: Regular rate and rhythm without murmurs, rubs or gallops. ABDOMEN: Soft, nontender. No guarding, no rebound. No masses appreciated. EXTREMITIES: Normal range of motion, no pitting or edema. No clubbing or cyanosis. NEUROLOGICAL: Cranial nerves II through XII grossly intact. Normal speech, normal gait. PSYCH: Normal mood, normal affect. SKIN: Warm, Dry, normal turgor, no rashes or lesions noted. Course - Re-evaluation Re-evalutation: 09/17/19 Presentation is most consistent with a viral upper respiratory infection. No tachycardia. No hypoxia. Afebrile. Patient is overall well appearance, vitals within normal limits, well-hydrated. Patient denies any headache, neck pain, and has no evidence of meningismus on examination. Lungs are clear bilaterally. No evidence of respiratory distress. Based on clinical exam and history, I do not suspect an acute pneumonia, meningitis, strep pharyngitis, or an acute encephalitis. No laboratory or imaging testing is indicated at this time. Will discharge patient with return precautions and followup recommendations. They are in agreement this plan have verbalized understanding return precautions. - Vital Signs Vital signs: Temp Pulse Resp BP Pulse Ox 98.0 F 82 18 133/83 H 100 09/17/19 06:21 09/17/19 06:21 09/17/19 06:21 09/17/19 06:21 09/17/19 06:21 Discharge - Discharge Clinical Impression: Viral URI with cough Condition: Stable Disposition: HOME, SELF-CARE Instructions: Acetaminophen, Fever ([facility]), Upper Respiratory Illness ([facility]), Viral Syndrome ([facility]) Additional Instructions: Your symptoms are most likely due to a viral infection it should resolve over the next 7-14 days. You should take [id number] guanfacine per bottle instructions to help thin the mucus. Please take medications as prescribed. You may also use tylenol or ibuprofen as needed for aches and thorat discomfort. Please be sure to drink plenty of fluids and get rest. Return to the emergency department he began having difficulty breathing, chest pain, persistent vomiting, or any other symptoms that are concerning to you. Prescriptions: Benzonatate [Tessalon Perle 100 mg Capsule] 100 mg PO Q8HP PRN #40 cap PRN Reason: Fexofenadine/Pseudoephedrine [Tierra-D 24 Hour Tablet] 1 each PO DAILY #20 tab.er.24h Fluticasone Propionate [Flonase Nasal Sanders 50 Mcg/Sanders 16 gm] 2 sprays NASL Q12 #1 inhaler Forms: Parent Work Note [facility]errals: [facility] [[facility]] - Follow up in 3-5 days
[2019-09-17 08:46] VITALS: BP 126/85
== END 2019-09-17 08:42 | disposition home or self-care (01) ==
LOC: ER 06:16
DX: J06.9 Acute upper respiratory infection, unspecified (principal); B97.89 Other viral agents as the cause of diseases classified elsewhere; R05 Cough; R11.0 Nausea; R09.89 Other specified symptoms and signs involving the circulatory and respiratory systems; I10 Essential (primary) hypertension; F17.200 Nicotine dependence, unspecified, uncomplicated
CPT/HCPCS: 99283

== ENCOUNTER 2020-02-01 14:26 | Emergency (ER) | payer OTHER ==
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
[2020-02-01 16:15] LABS: ABSOLUTE BASOPHILS # (AUTO) 0.1 10^3/uL (0.0-0.2); ABSOLUTE EOSINOPHILS # (AUTO) 0.2 10^3/uL (0.0-0.6); ABSOLUTE LYMPHOCYTES (AUTO) 1.6 10^3/uL (0.5-4.7); ABSOLUTE MONOCYTES (AUTO) 0.5 10^3/uL (0.1-1.4); ABSOLUTE NEUT (AUTO) 3.8 10^3/uL (1.7-8.2); BASOPHILS % (AUTO) 1.3 % (0-2); EOSINOPHILS % (AUTO) 3.3 % (0-6); HEMATOCRIT 39.9 % (37.9-51.0); HEMOGLOBIN 13.6 g/dL (13.5-17.0); LYMPHOCYTES % (AUTO) 26.5 % (13-45); MEAN CORPUSCULAR HEMOGLOBIN 30.6 pg (27.0-33.4); MEAN CORPUSCULAR HGB CONC 34.1 g/dL (32.0-36.0); MEAN CORPUSCULAR VOLUME 90 fl (80-97); MONOCYTES % (AUTO) 8.4 % (3-13); PLATELET COUNT 250 10^3/uL (150-450); RED BLOOD COUNT 4.45 10^6/uL (4.35-5.55); RED CELL DISTRIBUTION WIDTH 16.1 % (11.5-14.0); SEGMENTED NEUTROPHILS % (AUTO) 60.5 % (42-78); TOTAL CELLS COUNTED % (AUTO) 100 %; WHITE BLOOD COUNT 6.2 10^3/uL (4.0-10.5)
[2020-02-01 16:37] LABS: ALBUMIN 4.8 g/dL (3.5-5.0); ALCOHOL 245 mg/dL (NONE DETECTED); ALKALINE PHOSPHATASE 76 U/L (38-126); ANION GAP 8 (5-19); ASPARTATE AMINO TRANSFERASE 54 U/L (17-59); BILIRUBIN,TOTAL 0.4 mg/dL (0.2-1.3); BLOOD UREA NITROGEN 10 mg/dL (7-20); CALCIUM 9.5 mg/dL (8.4-10.2); CARBON DIOXIDE 30 mmol/L (22-30); CHLORIDE 105 mmol/L (98-107); GLUCOSE 100 mg/dL (75-110); POTASSIUM 4.3 mmol/L (3.6-5.0); TOTAL PROTEIN 8.4 g/dL (6.3-8.2)
[2020-02-01 16:38] LABS: ACETAMINOPHEN < 10 ug/mL (10-30); SALICYLATE < 1.0 mg/dL (2.0-20.0)
[2020-02-01 17:01] LABS: APPEARANCE,URINE CLEAR; BILIRUBIN,URINE NEGATIVE (NEGATIVE); COLOR,URINE STRAW; GLUCOSE, URINE NEGATIVE (NEGATIVE); KETONES,URINE NEGATIVE (NEGATIVE); LEUKOCYTE ESTERASE,URINE NEGATIVE (NEGATIVE); NITRITE,URINE NEGATIVE (NEGATIVE); PROTEIN,URINE NEGATIVE (NEGATIVE); URINE SPECIFIC GRAVITY 1.004; UROBILINOGEN,URINE NEGATIVE mg/dL (<2.0)
[2020-02-01 17:15] LABS: URINE AMPHETAMINES SCREEN NEGATIVE; URINE BARBITURATES SCREEN NEGATIVE; URINE BENZODIAZEPINES SCREEN NEGATIVE; URINE COCAINE SCREEN NEGATIVE; URINE MARIJUANA (THC) SCREEN NEGATIVE; URINE METHADONE SCREEN NEGATIVE; URINE PHENCYCLIDINE SCREEN NEGATIVE
[2020-02-01] MEDS: BUSPIRONE HCL 10 MG TABLET PO SCH (19:45)
--- NOTE | 2020-02-01 20:00 | EKG REPORT ---
SEVERITY:- NORMAL ECG - SINUS RHYTHM : Confirmed by: Mohini Lynn MD 01-Feb-2020 19:59:39
--- NOTE | 2020-02-01 22:19 | PSYCHOLOGICAL NOTE ---
Psych Note - Psych Note Date seen by psych provider: 02/01/20 Time seen by psych provider: 14:45 Psych Note: Patient is a 34-year-old male who presents to ED via [facility] with concerns for EtOH intoxication and suicidal ideation. Patient is known to behavioral health team. Patient reports chronic suicidal ideation. Patient states his psychologist "left me alone." When asked to elaborate patient states he arrived for his scheduled appointment today however his therapist was not there. Patient states it has been 3 weeks since he has met with his therapist. Patient reports he generally meets with his therapist once a week. Patient reports he went back to drinking 5 days ago. Patient reports over the last 5 days, daily drinking approximately 5 beers per day. Patient reports he ran from the home "to be comical." Clinician notes patient was generally argumentative, patronizing, and uncooperative. Patient generally perseverated on being left alone by others and no one willing to help. Clinician challenged patients irrational thought patterns by pointing out evidence to the contrary. Clinician notes patient became tearful, cooperative, and pleasant. Patient states the trigger to current event was finding out his foster father, with whom he calls dad and who patient enjoys a close relationship was recently diagnosed with cancer. Another contributing factor is the recent COVID 19 pandemic. Patient states he has [facility] that his current medication of Effexor is not working. Patient reports being a degree in HALLIE therapy. Clinician used HALLIE principles to illustrate antecedents, stimulus, response, and consequences. Patient was receptive and able to verbalize insight into his own mental health diagnosis, and how EtOH and periods of acute stress can exacerbate his PTSD. Patient was able to identify coping/distress tolerance skills. The following collateral information was collected by patient's . Patient has experienced a decrease in sleep due to night terrors. states patient was able to make contact with the psychiatrist but not his therapist. reports patient experiences chronic suicidal ideation, however patient rarely escalates to "this point." stated she knew if she got behind the car would be able to stop him from leaving because he would not hurt her. states last suicide attempt was approximately August to September 2019 in which patient attempted to drown himself. states patient was "sober for a while" but recently began drinking beer and wine again. is a substance abuse therapist who can generally de-escalate patient. describes patient as "sweet and kind" when he is doing well. reports no concerns for safety and wellbeing with discharge. agrees to be a collaborator in patient's care as described as being responsible for medication management and administration, facilitating follow-up appointments with patient's mental health team, removing access to alcohol, and removing access to items that can be used for suicidal p urposes. Check in conducted with patient. Clinician discussed the importance of patient gaining the coping/distress tolerance skills to take responsibility for his behavior, happiness, and overall life outcome. Provided patient with psychoeducation regarding PTSD, especially with ETOH abuse. Discussed the benefit of trauma focused therapy. Provided information for PTSD resiliency groups at the [facility]. Discussed speaking with his [facility] regarding [facility]. Patient states that inpatient PTSD treatment would be a concern as he needs to work. Discussed medication recommendations. Patient was agreeable and consented to medication adjustments. Patient is alert and oriented to person, place, time and circumstance. After initial challenging presentation, mood is normal, at times tearful with congruent affect. Patient endorses chronic suicidal ideation. Patient denies homicidal ideations. Delusions are absent and behavior is congruent with an intact reality based presentation (i.e., organized and linear through processes). There is no observed behavior that suggests patient is responding to internal stimuli. Patient is able to engage in organized, rational thought processes. Patient is able to express needs and wants in a logical manner, however places a great deal of responsibility on others for his well being and happiness. Patient denies current auditory and visual hallucinations. Eye contact is appropriate. Conversational speech is what slurred. Intellectual ability appears to be within average range. Attention and concentration are fair. Insight, judgment and impulse control are currently fair. Medication recommendations per [facility] contracted psychiatrist Dr. Adina MD are as follows: Add BuSpar 5 mg, twice a day Decrease Effexor to 75 mg, daily Impression/Plan: Patient is eligible for rescind of IVC when patients blood alcohol content is medically appropriate for discharge. Patient is psychiatrically clear. Medication recommendations have been provided. A copy of medication recommendations have been faxed to patient's [facility] provider. Patient has an extensive history of maladaptive coping as evidenced by alcohol abuse w hich generally results in suicidal ideation. Patient has a history of chronic suicidal ideation. Patient receives [facility] management through the [facility]. Patient receives therapeutic services through [facility]. Patient generally receives counseling services 1 time a week; however patient has not had his normal clinical contact with therapist due to the COVID 19 pandemic. Clinician provided psychoeducation regarding PTSD and the worsening of PTSD with EtOH and periods of acute stress. Patient was able to verbalize insight into his mental health diagnosis, EtOH abuse, and relationship of his behavior to experienced consequences. Clinician reached out to patient's therapist to reschedule appointment but was unable to make contact. Dr. Arias was consulted on the care and management of this patient. agrees to be a collaborator in patient's care as described as being responsible for medication management and administration, facilitating follow-up appointments with patient's mental health team, removing access to alcohol, and removing access to items that can be used for suicidal purposes. Dr. Arias was consulted on the care and management of this patient; attending physician is in agreement with recommendations and disposition.
[2020-02-02] MEDS ORDERED: VENLAFAXINE HCL 75 MG TABLET PO SCH (08:00)
--- NOTE | 2020-02-02 08:26 | ER Document Report ---
Doctor's Note Notes: 02/02/20 08:24 PHYSICAL EXAMINATION: GENERAL: Well-appearing and in no acute distress. HEAD: Atraumatic, normocephalic. EYES: sclera anicteric, conjunctiva are normal. ENT: nares patent. Moist mucous membranes. NECK: Normal range of motion, supple without lymphadenopathy LUNGS: CTAB and equal. No wheezes rales or rhonchi. HEART: Regular rate and rhythm without murmurs EXTREMITIES: Normal range of motion BACK: No CVA tenderness NEUROLOGICAL: Cranial nerves grossly intact. Normal speech. PSYCH: Normal mood, normal affect. SKIN: Warm, Dry, normal turgor, no rashes or lesions noted Patient resting calmly on stretcher is pleasant with staff. Patient denies any issues through the evening. Patient's blood alcohol level has decreased to an acceptable level for discharge. Patient is awaiting reevaluation by mental health team. 02/02/20 13:09 IVC order has been rescinded, patient is medically stable for discharge at this time. Patient is agreeable with this discharge plan of care.
[2020-02-02] MEDS: BUSPIRONE HCL 10 MG TABLET PO SCH (10:39)
[2020-02-02 13:22] VITALS: BP 120/75
--- NOTE | 2020-02-02 14:19 | PSYCHOLOGICAL NOTE ---
Psych Note - Psych Note Date seen by psych provider: 02/02/20 Time seen by psych provider: 12:05 Psych Note: Patient is a 34-year-old male who presents to ED via [facility] with concerns for EtOH intoxication and suicidal ideation. Patient is known to behavioral health team with concerns for chronic suicidal ideation when intoxicated. Check in conducted with patient. Patient was eligible for discharge yesterday, but attending physician wanted patient to be reevaluated. Patient reports a decrease in anxiety and "feeling much better." Patient states he cannot tell a difference as far as the decrease in Effexor; however maintains a belief that he was "overmedicated with Effexor." When asked what has changed from yesterday, patient reported "my decreased alcohol level." Patient verbalized an intention to abstain from ETOH use/abuse. Patient denies SI/HI. Patient denies withdrawals and cravings. Patient is observed to walk with a steady gait, no slurred speech, no tremors. Clinician revisited psychoeducation points from yesterday (developing action plan for self reliance, developing healthy coping skills, engagement with trauma focused therapy). Patient is alert and oriented to person, place, time and circumstance. Mood is euthymic with congruent affect. Patient denies current suicidal and homicidal ideations. Delusions are absent and behavior is congruent with an intact reality based presentation (i.e., organized and linear through processes). There is no observed behavior that suggests patient is responding to internal stimuli. Patient is able to engage in organized, rational thought processes. Patient is able to express needs and wants in a logical manner. Patient denies current auditory and visual hallucinations. Eye contact is appropriate. Conversational speech is within normal limits. Intellectual ability appears to be within average range. Attention and concentration are good. Insight, judgment and impulse control are currently fair. Medication recommendations per [facility] contracted psychiatrist Dr. Adina MD are as follows: Continue BuSpar 5 mg, twice a day Continue Effexor to 75 mg, daily Impression/Plan: Patient is recommended for rescind and is cleared from acute psychiatric services. Medication recommendations have been provided. A copy of medication recommendations have been faxed to patient's ID provider. Patient has an extensive history of maladaptive coping as evidenced by alcohol abuse which generally results in suicidal ideation. Patient has a history of chronic suicidal ideation. Patient receives medication management through the ID. Patient receives therapeutic services through [facility]. Patient generally receives counseling services 1 time a week; however patient has not had his normal clinical contact with therapist due to the COVID 19 pandemic. Clinician provided psychoeducation regarding PTSD and the worsening of PTSD with EtOH and periods of acute stress. Patient was able to verbalize insight into his mental health diagnosis, EtOH abuse, and relationship of his behavior to experienced consequences. Clinician reached out to patient's therapist to reschedule appointment but was unable to make contact. Dr. Arias was consulted on the care and management of this patient. agrees to be a collaborator in patient's care as described as being responsible for medication management and administration, facilitating follow-up appointments with [facility], removing access to alcohol, and removing access to items that can be used for suicidal purposes. Dr. Arias was consulted on the care and management of this patient; attending physician is in agreement with recommendations and disposition.
== END 2020-02-02 13:25 | disposition home or self-care (01) ==
LOC: ER 14:26
DX: R45.851 Suicidal ideations (principal); F10.10 Alcohol abuse, uncomplicated; F91.1 Conduct disorder, childhood-onset type; F17.200 Nicotine dependence, unspecified, uncomplicated; I10 Essential (primary) hypertension; Z96.652 Presence of left artificial knee joint; F43.10 Post-traumatic stress disorder, unspecified
CPT/HCPCS: 36415; 80053; 80307; 81001; 85025; 93005; 93010; 99285

== ENCOUNTER 2020-02-21 17:13 | Emergency (ER) | payer OTHER ==
[2020-02-21 17:23] VITALS: BP 139/88
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
[2020-02-21] MEDS ORDERED: IBUPROFEN 800 MG TABLET PO ONE (19:02)
[2020-02-21 19:11] LABS: ABSOLUTE BASOPHILS # (AUTO) 0.1 10^3/uL (0.0-0.2); ABSOLUTE EOSINOPHILS # (AUTO) 0.2 10^3/uL (0.0-0.6); ABSOLUTE LYMPHOCYTES (AUTO) 2.4 10^3/uL (0.5-4.7); ABSOLUTE MONOCYTES (AUTO) 0.7 10^3/uL (0.1-1.4); ABSOLUTE NEUT (AUTO) 5.3 10^3/uL (1.7-8.2); BASOPHILS % (AUTO) 1.1 % (0-2); EOSINOPHILS % (AUTO) 2.1 % (0-6); HEMATOCRIT 36.8 % (37.9-51.0); HEMOGLOBIN 12.9 g/dL (13.5-17.0); LYMPHOCYTES % (AUTO) 27.7 % (13-45); MEAN CORPUSCULAR HGB CONC 35.2 g/dL (32.0-36.0); MEAN CORPUSCULAR VOLUME 88 fl (80-97); MONOCYTES % (AUTO) 7.9 % (3-13); PLATELET COUNT 281 10^3/uL (150-450); RED BLOOD COUNT 4.17 10^6/uL (4.35-5.55); RED CELL DISTRIBUTION WIDTH 16.4 % (11.5-14.0); SEGMENTED NEUTROPHILS % (AUTO) 61.2 % (42-78); TOTAL CELLS COUNTED % (AUTO) 100 %; WHITE BLOOD COUNT 8.7 10^3/uL (4.0-10.5)
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
[2020-02-21 19:33] LABS: ALBUMIN 4.6 g/dL (3.5-5.0); ALKALINE PHOSPHATASE 95 U/L (38-126); ANION GAP 10 (5-19); ASPARTATE AMINO TRANSFERASE 103 U/L (17-59); BILIRUBIN,TOTAL 0.4 mg/dL (0.2-1.3); BLOOD UREA NITROGEN 18 mg/dL (7-20); CALCIUM 9.1 mg/dL (8.4-10.2); CARBON DIOXIDE 27 mmol/L (22-30); CHLORIDE 105 mmol/L (98-107); GLUCOSE 89 mg/dL (75-110); POTASSIUM 4.4 mmol/L (3.6-5.0)
== END 2020-02-21 20:17 | disposition left against medical advice (07) ==
LOC: ER 17:13
DX: B99.9 Unspecified infectious disease (principal); T22.00XA Burn of unspecified degree of shoulder and upper limb, except wrist and hand, unspecified site, initial encounter; X19.XXXA Contact with other heat and hot substances, initial encounter; I10 Essential (primary) hypertension; Z53.29 Procedure and treatment not carried out because of patient's decision for other reasons
CPT/HCPCS: 36415; 80053; 85025; 87040; 99281

== ENCOUNTER 2020-07-31 19:30 | Emergency (ER) | payer OTHER | END 2020-07-31 20:11 | disposition left against medical advice (07) | LOC: ER 19:30 | DX: Z53.21 Procedure and treatment not carried out due to patient leaving prior to being seen by health care provider (principal) ==

== ENCOUNTER 2020-10-04 19:16 | Emergency (ER) | payer OTHER ==
[2020-10-04 19:31] VITALS: BP 118/75
--- NOTE | 2020-10-04 20:40 | ER Document Report ---
ED Medical Screen (RME) - General Chief Complaint: Chest Pain Stated Complaint: CHEST PAIN,ABDOMINAL PAIN,ANKLE INJURY Time Seen by Provider: 10/04/20 20:09 Primary Care Provider: BAIRON,MICHAELA [Primary Care Provider] - Follow up as needed TRAVEL OUTSIDE OF THE [place] IN LAST 30 DAYS: No - HPI Notes: Patient is a 35-year-old male with a hx of chronic pancreatitis who presents with chest pain abdominal pain that worsened today. Patient states he fell off his skateboard 3 days ago injuring his left ankle. He has had pain since and to compensate with the pain he states he has been drinking in excess. He states his abdominal pain is midepigastric and feels like his past pancreatitis flares. He reports bilateral substernal chest pain, shortness of breath, nausea, and diarrhea. He denies vomiting. - Related Data Allergies/Adverse Reactions: No Known Allergies Allergy (Verified 02/01/20 15:25) Past Medical History - Past Medical History Cardiac Medical History: Reports: Hx Hypertension Renal/ Medical History: Denies: Hx Peritoneal Dialysis GI Medical History: Reports: Hx Gastroesophageal Reflux Disease, Hx Pancreatitis Musculoskeltal Medical History: Reports Hx Arthritis, Reports Hx Musculoskeletal Deformity, Reports Hx Musculoskeletal Trauma Psychiatric Medical History: Reports: Hx Anxiety, Hx Depression, Hx Post Traumatic Stress Disorder Traumatic Medical History: Reports: Hx Fractures - Knee Past Surgical History: Reports: Hx Oral Surgery, Hx Orthopedic Surgery - L knee replacement - Immunizations Immunizations up to date: Yes Hx Diphtheria, Pertussis, Tetanus Vaccination: Yes Physical Exam - Vital signs Vitals: Temp Pulse Resp BP Pulse Ox 98.1 F 91 20 118/75 98 10/04/20 19:31 10/04/20 19:31 10/04/20 19:31 10/04/20 19:31 10/04/20 19:31 - Extremities Ankle: Tender - left ankle, Limited ROM Course - Re-evaluation Re-evalutation: I have greeted and performed a rapid initial assessment of this patient. A comprehensive ED assessment and evaluation of the patient, analysis of test results and completion of medical decision making process will be conducted by an additional ED providers. - Vital Signs Vital signs: Temp Pulse Resp BP Pulse Ox 98.1 F 91 20 118/75 98 10/04/20 19:31 10/04/20 19:31 10/04/20 19:31 10/04/20 19:31 10/04/20 19:31 Doctor's Discharge - Discharge [facility]errals: [facility] [[facility]] - Follow up as needed
[2020-10-04 21:16] LABS: ABSOLUTE BASOPHILS # (AUTO) 0.1 10^3/uL (0.0-0.2); ABSOLUTE EOSINOPHILS # (AUTO) 0.3 10^3/uL (0.0-0.6); ABSOLUTE LYMPHOCYTES (AUTO) 2.5 10^3/uL (0.5-4.7); ABSOLUTE MONOCYTES (AUTO) 0.7 10^3/uL (0.1-1.4); BASOPHILS % (AUTO) 1.9 % (0-2); EOSINOPHILS % (AUTO) 4.4 % (0-6); HEMATOCRIT 34.9 % (37.9-51.0); HEMOGLOBIN 11.8 g/dL (13.5-17.0); LYMPHOCYTES % (AUTO) 37.6 % (13-45); MEAN CORPUSCULAR HEMOGLOBIN 28.6 pg (27.0-33.4); MEAN CORPUSCULAR VOLUME 84 fl (80-97); MONOCYTES % (AUTO) 10.7 % (3-13); PLATELET COUNT 300 10^3/uL (150-450); RED BLOOD COUNT 4.14 10^6/uL (4.35-5.55); RED CELL DISTRIBUTION WIDTH 16.4 % (11.5-14.0); SEGMENTED NEUTROPHILS % (AUTO) 45.4 % (42-78); TOTAL CELLS COUNTED % (AUTO) 100 %; WHITE BLOOD COUNT 6.6 10^3/uL (4.0-10.5)
[2020-10-04 21:18] LABS: APPEARANCE,URINE CLEAR; BILIRUBIN,URINE NEGATIVE (NEGATIVE); COLOR,URINE COLORLESS; GLUCOSE, URINE NEGATIVE (NEGATIVE); KETONES,URINE NEGATIVE (NEGATIVE); LEUKOCYTE ESTERASE,URINE NEGATIVE (NEGATIVE); NITRITE,URINE NEGATIVE (NEGATIVE); PROTEIN,URINE NEGATIVE (NEGATIVE); URINE SPECIFIC GRAVITY 1.003; UROBILINOGEN,URINE NEGATIVE mg/dL (<2.0)
--- NOTE | 2020-10-04 21:31 | RADIOLOGY REPORT (SQ) ---
EXAM DESCRIPTION: XR CHEST 1 VIEW COMPLETED DATE/TME: 10/04/2020 20:49 CLINICAL HISTORY: 35 years, Male, chest pain EXAM DESCRIPTION: CHEST SINGLE VIEW CLINICAL HISTORY: chest pain COMPARISON: None. FINDINGS: Single view of the chest is submitted. Cardiac silhouette is normal. No focal parenchymal or pleural disease. There is no significant pulmonary vascular engorgement. IMPRESSION: No evidence of acute cardiopulmonary disease.
[2020-10-04 21:34] LABS: ALBUMIN 4.7 g/dL (3.5-5.0); ALKALINE PHOSPHATASE 88 U/L (38-126); ANION GAP 10 (5-19); ASPARTATE AMINO TRANSFERASE 46 U/L (17-59); BILIRUBIN,DIRECT 0.2 mg/dL (0.0-0.4); BILIRUBIN,TOTAL 0.3 mg/dL (0.2-1.3); BLOOD UREA NITROGEN 12 mg/dL (7-20); CALCIUM 9.5 mg/dL (8.4-10.2); CARBON DIOXIDE 28 mmol/L (22-30); CHLORIDE 101 mmol/L (98-107); GLUCOSE 91 mg/dL (75-110); POTASSIUM 4.8 mmol/L (3.6-5.0); TOTAL PROTEIN 8.1 g/dL (6.3-8.2)
--- NOTE | 2020-10-04 21:38 | RADIOLOGY REPORT (SQ) ---
EXAM DESCRIPTION: X-ray left ankle 3 views COMPLETED DATE/TME: 10/04/2020 20:49 CLINICAL HISTORY: 35 years, Male, left ankle injury COMPARISON: None. NUMBER OF VIEWS: TECHNIQUE: LIMITATIONS: None. FINDINGS: No fracture or dislocation. Mineralization of bone appears normal. IMPRESSION: No fracture or dislocation. copyright 2010 [employer]- All Rights Reserved
--- NOTE | 2020-10-06 00:13 | EKG REPORT ---
SEVERITY:- NORMAL ECG - SINUS RHYTHM : Confirmed by: Velia Cardoso 06-Oct-2020 00:13:16
== END 2020-10-04 22:35 | disposition left against medical advice (07) ==
LOC: ER 19:16
DX: R07.2 Precordial pain (principal); R10.13 Epigastric pain; R06.02 Shortness of breath; R11.0 Nausea; R19.7 Diarrhea, unspecified; I10 Essential (primary) hypertension; S99.912A Unspecified injury of left ankle, initial encounter; V00.131A Fall from skateboard, initial encounter; Z53.20 Procedure and treatment not carried out because of patient's decision for unspecified reasons; Z87.19 Personal history of other diseases of the digestive system
CPT/HCPCS: 36415; 71045; 80053; 81001; 83690; 84484; 85025; 93005; 93010; 99281

== ENCOUNTER 2020-10-10 06:49 | Emergency (ER) | payer OTHER ==
[2020-10-10] MEDS ORDERED: INDOMETHACIN 25 MG CAPSULE PO ONE (08:26)
--- NOTE | 2020-10-10 08:29 | ER Document Report ---
ED General - General Chief Complaint: Ankle Pain Stated Complaint: LEFT ANKLE PAIN Time Seen by Provider: 10/10/20 08:15 Primary Care Provider: BAIRON,MICHAELA [Primary Care Provider] - Follow up as needed TRAVEL OUTSIDE OF THE [place] IN LAST 30 DAYS: No - HPI Notes: Chief complaint: Left ankle injury History of present illness: 35-year-old male states that he twisted his left ankle while skateboarding greater than 10 days ago. He apparently came to the emergency department this mostly but did not wait because of long wait time. He has been treating this with an Eddie wrap at home but says he is having increasing pain with weightbearing and feels he is getting worse instead of better. He is taken only some ibuprofen and Tylenol [id number]. He denies any prior problems with the ankle. - Related Data Allergies/Adverse Reactions: No Known Allergies Allergy (Verified 02/01/20 15:25) Past Medical History - General Information source: Patient - Social History Smoking Status: Current Every Day Smoker Frequency of alcohol use: None Drug Abuse: None Family History: Reviewed & Not Pertinent Patient has homicidal ideation: No - Past Medical History Cardiac Medical History: Reports: Hx Hypertension Renal/ Medical History: Denies: Hx Peritoneal Dialysis GI Medical History: Reports: Hx Gastroesophageal Reflux Disease, Hx Pancreatitis Musculoskeletal Medical History: Reports Hx Arthritis, Reports Hx Musculoskeletal Deformity, Reports Hx Musculoskeletal Trauma Psychiatric Medical History: Reports: Hx Anxiety, Hx Depression, Hx Post Traumatic Stress Disorder Traumatic Medical History: Reports: Hx Fractures - Knee Past Surgical History: Reports: Hx Oral Surgery, Hx Orthopedic Surgery - L knee replacement - Immunizations Immunizations up to date: Yes Hx Diphtheria, Pertussis, Tetanus Vaccination: Yes Review of Systems - Review of Systems Notes: Constitutional: Negative for fever. HENT: Negative for sore throat. Eyes: Negative for visual changes. Cardiovascular: Negative for chest pain. Respiratory: Negative for shortness of breath. Gastrointestinal: Negative for abdominal pain, vomiting or diarrhea. Genitourinary: Negative for dysuria. Musculoskeletal: As per HPI. Skin: No rashes. Neurological: Negative for headaches, weakness or numbness. 10 point ROS negative except as marked above and in HPI. Physical Exam - Vital signs Vitals: Temp Pulse Resp BP Pulse Ox 97.9 F 84 16 145/82 H 96 10/10/20 07:25 10/10/20 07:25 10/10/20 07:25 10/10/20 07:25 10/10/20 07:25 - Notes Notes: GENERAL: Somewhat obese male approximately stated age appearing in no acute distress. SKIN: Good turgor no rashes. HEAD: Normocephalic atraumatic. EYES: PERRLA. EOMI. Conjunctivae and sclerae clear. NECK: Supple. No masses or thyromegaly. No adenopathy. Carotids 2+ without bruits. No JVD. BACK: Symmetrical without tenderness. CHEST: Respirations unlabored. Breath sounds clear and symmetrical. HEART: Regular rhythm. No murmur gallop or rub. ABDOMEN: Soft nontender without masses, organomegaly or rebound. Bowel sounds normally active. No bruits. EXTREMITIES: Moderate edema medial and lateral aspect of left ankle with associated tenderness. No gross ligamentous instability. There is no discontinuity or tenderness over the Achilles tendon. Glover test is normal. No edema. No calf tenderness. Cap refill less than 1.5 seconds. Dorsalis pedis and posterior tibial pulses 3+ and symmetrical. NEUROLOGICAL: Alert and oriented x3. Nonfocal. PSYCHIATRIC: Appropriate affect. Course - Re-evaluation Re-evalutation: 10/10/20 09:15 Normal x-ray left ankle per radiologist. Clinically I think this is contused and sprained. I placed patient in an ankle stirrup and given crutches. 10/10/20 09:21 Findings, clinical impression and plan of treatment have been discussed with patient/family. Understanding of current findings and recommendations has been acknowledged by them and there is agreement regarding disposition and follow-up. - Vital Signs Vital signs: Temp Pulse Resp BP Pulse Ox 97.9 F 84 16 145/82 H 96 10/10/20 07:25 10/10/20 07:25 10/10/20 07:25 10/10/20 07:25 10/10/20 07:25 - Laboratory Results Critical Laboratory Results Reviewed: No Critical Results - Radiology Results Radiology Results Interpreted: 10/10/20 09:15 Ankle X-Ray 10/10/20 07:40 IMPRESSION: Mild soft tissue swelling about the ankle without evidence of acute bony abnormality. Critical Radiology Results Reviewed: No Critical Results Attending or Supervising Physician who Reviewed Radiology: ROS [place] Procedures - Immobilization Left Ankle Pre-Proc Neuro Vasc Exam: Normal Immobilizer type: Ankle stirrup, Crutches Performed by: PCT Post-Proc Neuro Vasc Exam: Normal Discharge - Discharge Clinical Impression: Sprain of left ankle Qualifiers: Encounter type: initial encounter Involved ligament of ankle: unspecified ligament Qualified Code(s): S93.402A - Sprain of unspecified ligament of left ankle, initial encounter Condition: Stable Disposition: HOME, SELF-CARE Additional Instructions: Sprained Ankle Your sprained ankle results from stretching or tearing of the ligaments which support the ankle. This usually results from twisting the foot inward and under. The ligaments will require time and protection in order to heal properly. Many ankle sprains are quite disabling, and should be taken seriously. The usual treatment for an ankle sprain is cold packs; protection with tape, splints, or wraps; elevation; and staying off the ankle for at least a day. As the ankle improves, you can walk IF it's not painful to bear weight. Sports are best postponed until healing is complete. More serious sprains usually require strengthening exercises after early healing. Your physician has assessed the seriousness of the ligament injury to your ankle. However, the treatment may change, depending on how your ankle progresses. If further exams were recommended, it is important that you follow through. Call the doctor if your foot becomes numb, painful, or severely swollen. Elevate ankle. Apply ice packs. Continue current medications. You may take Tylenol supplementally as needed for pain. You will be provided a work note for the next 3 days. You will be given a brace and crutches. You will be given referral for an orthopedic doctor for follow-up. Forms: Return to Work [facility]errals: [facility] [Primary [facility]] - Follow up as needed TAISHA MORGAN MD [ACTIVE STAFF] - Follow up as needed
--- NOTE | 2020-10-10 08:40 | RADIOLOGY REPORT (SQ) ---
EXAM DESCRIPTION: ANKLE LEFT COMPLETE IMAGES COMPLETED DATE/TIME: 10/10/2020 8:05 am REASON FOR STUDY: injury from skateboarding accident/pain COMPARISON: None. NUMBER OF VIEWS: Three views. TECHNIQUE: AP, lateral, and oblique radiographic images acquired of the left ankle. LIMITATIONS: None. FINDINGS: MINERALIZATION: Normal. BONES: No acute fracture or dislocation. No worrisome bone lesions. JOINTS: No effusions. SOFT TISSUES: Soft tissue swelling about the medial ankle. No radiopaque foreign body. OTHER: No other significant finding. IMPRESSION: Mild soft tissue swelling about the ankle without evidence of acute bony abnormality. TECHNICAL DOCUMENTATION: JOB ID: [id number] 2010 [employer]- All Rights Reserved Reading location - IP/workstation name: [email or web address]
[2020-10-10 09:37] VITALS: BP 117/74
== END 2020-10-10 09:36 | disposition home or self-care (01) ==
LOC: ER 06:49
DX: S93.402A Sprain of unspecified ligament of left ankle, initial encounter (principal); X58.XXXA Exposure to other specified factors, initial encounter; Y93.51 Activity, roller skating (inline) and skateboarding; F17.200 Nicotine dependence, unspecified, uncomplicated; I10 Essential (primary) hypertension
CPT/HCPCS: 99283; 73610; 29515; J3490

== ENCOUNTER 2020-10-16 23:21 | Emergency (ER) | payer OTHER ==
[2020-10-16 23:55] VITALS: BP 132/90
[2020-10-17] MEDS ORDERED: NORMAL SALINE 1000 ML 1,000 ML IV PRN (00:16)
--- NOTE | 2020-10-17 00:19 | ER Document Report ---
ED Medical Screen (RME) - General Chief Complaint: Abdominal Pain Stated Complaint: FLANK PAIN Time Seen by Provider: 10/17/20 00:10 Primary Care Provider: BAIRON,MICHAELA [Primary Care Provider] - Follow up as needed Mode of Arrival: Ambulatory Information source: Patient Notes: 35-year-old male presented to ED for complaint of abdominal and back pain. He states he got off work at 7 PM tonight and started drinking at 730. He states he has had eight 7-8 12 ounce beers +2-3 8 ounce glasses of wine since 7 PM. He states his abdomen started hurting around 8 PM. He states he does have a history of binge drinking. He states he drinks very heavily Every couple 3 days. He does have a history of pancreatitis from drinking. He also has a history of a left knee replacement PTSD and major depressive order. He states he is having suicidal thoughts. states he has a history of suicidal thought but is not suicidal right now but he states he is suicidal right now. Patient is alert oriented respirations regular nonlabored speaking in full sentences. I have greeted and performed a rapid initial assessment of this patient. A comprehensive ED assessment and evaluation of the patient, analysis of test results and completion of medical decision making process will be conducted by an additional ED providers. TRAVEL OUTSIDE OF THE [place] IN LAST 30 DAYS: No - Related Data Allergies/Adverse Reactions: No Known Allergies Allergy (Verified 02/01/20 15:25) Past Medical History - Social History Chew tobacco use (# tins/day): No Frequency of alcohol use: Heavy Drug Abuse: None - Past Medical History Cardiac Medical History: Reports: Hx Hypertension Renal/ Medical History: Denies: Hx Peritoneal Dialysis GI Medical History: Reports: Hx Gastroesophageal Reflux Disease, Hx Pancreatitis Musculoskeltal Medical History: Reports Hx Arthritis, Reports Hx Musculoskeletal Deformity, Reports Hx Musculoskeletal Trauma Psychiatric Medical History: Reports: Hx Anxiety, Hx Depression, Hx Post Traumatic Stress Disorder Traumatic Medical History: Reports: Hx Fractures - Knee Past Surgical History: Reports: Hx Oral Surgery, Hx Orthopedic Surgery - L knee replacement - Immunizations Immunizations up to date: Yes Hx Diphtheria, Pertussis, Tetanus Vaccination: Yes Physical Exam - Vital signs Vitals: Temp Pulse Resp BP Pulse Ox 97.8 F 102 H 22 H 132/90 H 97 10/16/20 23:51 10/16/20 23:51 10/16/20 23:51 10/16/20 23:51 10/16/20 23:51 Course - Vital Signs Vital signs: Temp Pulse Resp BP Pulse Ox 97.8 F 102 H 22 H 132/90 H 97 10/16/20 23:51 10/16/20 23:51 10/16/20 23:51 10/16/20 23:51 10/16/20 23:51 Doctor's Discharge - Discharge [facility]errals: [facility] [[facility]] - Follow up as needed
[2020-10-17 01:17] LABS: ABSOLUTE BASOPHILS # (AUTO) 0.1 10^3/uL (0.0-0.2); ABSOLUTE EOSINOPHILS # (AUTO) 0.3 10^3/uL (0.0-0.6); ABSOLUTE LYMPHOCYTES (AUTO) 2.2 10^3/uL (0.5-4.7); ABSOLUTE MONOCYTES (AUTO) 0.5 10^3/uL (0.1-1.4); ABSOLUTE NEUT (AUTO) 7.1 10^3/uL (1.7-8.2); BASOPHILS % (AUTO) 1.1 % (0-2); EOSINOPHILS % (AUTO) 2.7 % (0-6); HEMATOCRIT 35.2 % (37.9-51.0); HEMOGLOBIN 11.8 g/dL (13.5-17.0); LYMPHOCYTES % (AUTO) 21.7 % (13-45); MEAN CORPUSCULAR HEMOGLOBIN 27.6 pg (27.0-33.4); MEAN CORPUSCULAR HGB CONC 33.5 g/dL (32.0-36.0); MEAN CORPUSCULAR VOLUME 82 fl (80-97); MONOCYTES % (AUTO) 5.1 % (3-13); PLATELET COUNT 345 10^3/uL (150-450); RED BLOOD COUNT 4.29 10^6/uL (4.35-5.55); RED CELL DISTRIBUTION WIDTH 15.9 % (11.5-14.0); SEGMENTED NEUTROPHILS % (AUTO) 69.4 % (42-78); TOTAL CELLS COUNTED % (AUTO) 100 %; WHITE BLOOD COUNT 10.3 10^3/uL (4.0-10.5)
[2020-10-17 01:30] LABS: ALBUMIN 4.6 g/dL (3.5-5.0); ALKALINE PHOSPHATASE 99 U/L (38-126); ASPARTATE AMINO TRANSFERASE 85 U/L (17-59); BILIRUBIN,DIRECT 0.3 mg/dL (0.0-0.4); BILIRUBIN,TOTAL 0.8 mg/dL (0.2-1.3); BLOOD UREA NITROGEN 8 mg/dL (7-20); CALCIUM 9.1 mg/dL (8.4-10.2); CARBON DIOXIDE 20 mmol/L (22-30); CHLORIDE 100 mmol/L (98-107); GLUCOSE 108 mg/dL (75-110); POTASSIUM 3.8 mmol/L (3.6-5.0); TOTAL PROTEIN 7.9 g/dL (6.3-8.2)
[2020-10-17 01:32] LABS: ANION GAP 16 (5-19)
[2020-10-17 01:37] LABS: ACETAMINOPHEN < 10 ug/mL (10-30); SALICYLATE < 1.0 mg/dL (2.0-20.0)
[2020-10-17 01:53] LABS: APPEARANCE,URINE CLEAR; BILIRUBIN,URINE NEGATIVE (NEGATIVE); COLOR,URINE COLORLESS; GLUCOSE, URINE NEGATIVE (NEGATIVE); KETONES,URINE NEGATIVE (NEGATIVE); LEUKOCYTE ESTERASE,URINE NEGATIVE (NEGATIVE); NITRITE,URINE NEGATIVE (NEGATIVE); PROTEIN,URINE NEGATIVE (NEGATIVE); URINE SPECIFIC GRAVITY 1.004; UROBILINOGEN,URINE NEGATIVE mg/dL (<2.0)
[2020-10-17 02:11] LABS: URINE AMPHETAMINES SCREEN NEGATIVE; URINE BARBITURATES SCREEN NEGATIVE; URINE BENZODIAZEPINES SCREEN NEGATIVE; URINE COCAINE SCREEN NEGATIVE; URINE MARIJUANA (THC) SCREEN NEGATIVE; URINE METHADONE SCREEN NEGATIVE; URINE PHENCYCLIDINE SCREEN NEGATIVE
[2020-10-17 02:12] LABS: ALCOHOL 290 mg/dL (NONE DETECTED)
--- NOTE | 2020-10-17 09:50 | EKG REPORT ---
SEVERITY:- NORMAL ECG - SINUS RHYTHM : Confirmed by: Jimmy Hanks MD 17-Oct-2020 09:49:55
== END 2020-10-17 01:30 | disposition left against medical advice (07) ==
LOC: ER 23:21
DX: R10.9 Unspecified abdominal pain (principal); M54.9 Dorsalgia, unspecified; I10 Essential (primary) hypertension; Z96.652 Presence of left artificial knee joint
CPT/HCPCS: 36415; 80053; 80307; 81001; 83690; 85025; 93005; 93010; 99281

== ENCOUNTER 2020-10-29 19:55 | Emergency (ER) | payer OTHER ==
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
[2020-10-29 21:11] LABS: APPEARANCE,URINE CLEAR; BILIRUBIN,URINE NEGATIVE (NEGATIVE); COLOR,URINE COLORLESS; GLUCOSE, URINE NEGATIVE (NEGATIVE); KETONES,URINE NEGATIVE (NEGATIVE); LEUKOCYTE ESTERASE,URINE NEGATIVE (NEGATIVE); NITRITE,URINE NEGATIVE (NEGATIVE); PROTEIN,URINE NEGATIVE (NEGATIVE); URINE SPECIFIC GRAVITY 1.002; UROBILINOGEN,URINE NEGATIVE mg/dL (<2.0)
[2020-10-29 21:33] LABS: URINE AMPHETAMINES SCREEN NEGATIVE; URINE BARBITURATES SCREEN NEGATIVE; URINE BENZODIAZEPINES SCREEN NEGATIVE; URINE COCAINE SCREEN NEGATIVE; URINE MARIJUANA (THC) SCREEN NEGATIVE; URINE METHADONE SCREEN NEGATIVE; URINE PHENCYCLIDINE SCREEN NEGATIVE
[2020-10-29 23:04] LABS: ABSOLUTE BASOPHILS # (AUTO) 0.1 10^3/uL (0.0-0.2); ABSOLUTE EOSINOPHILS # (AUTO) 0.3 10^3/uL (0.0-0.6); ABSOLUTE LYMPHOCYTES (AUTO) 2.8 10^3/uL (0.5-4.7); ABSOLUTE MONOCYTES (AUTO) 0.6 10^3/uL (0.1-1.4); ABSOLUTE NEUT (AUTO) 2.9 10^3/uL (1.7-8.2); BASOPHILS % (AUTO) 1.3 % (0-2); HEMATOCRIT 35.6 % (37.9-51.0); HEMOGLOBIN 12.1 g/dL (13.5-17.0); MEAN CORPUSCULAR HEMOGLOBIN 28.2 pg (27.0-33.4); MEAN CORPUSCULAR VOLUME 83 fl (80-97); MONOCYTES % (AUTO) 8.4 % (3-13); PLATELET COUNT 269 10^3/uL (150-450); RED BLOOD COUNT 4.29 10^6/uL (4.35-5.55); RED CELL DISTRIBUTION WIDTH 16.3 % (11.5-14.0); SEGMENTED NEUTROPHILS % (AUTO) 44.3 % (42-78); TOTAL CELLS COUNTED % (AUTO) 100 %; WHITE BLOOD COUNT 6.6 10^3/uL (4.0-10.5)
[2020-10-29] MEDS ORDERED: KETOROLAC TROMETHAMINE INJ/PF 30 MG/1 ML SDV IV ONE (23:08)
[2020-10-29] MEDS ORDERED: LORAZEPAM 0.5 MG TABLET PO ONE (23:09)
[2020-10-29 23:19] LABS: ACETAMINOPHEN < 10 ug/mL (10-30); ALBUMIN 4.5 g/dL (3.5-5.0); ALCOHOL 199 mg/dL (NONE DETECTED); ALKALINE PHOSPHATASE 92 U/L (38-126); ANION GAP 9 (5-19); ASPARTATE AMINO TRANSFERASE 74 U/L (17-59); BILIRUBIN,DIRECT 0.3 mg/dL (0.0-0.4); BILIRUBIN,TOTAL 0.7 mg/dL (0.2-1.3); BLOOD UREA NITROGEN 9 mg/dL (7-20); CALCIUM 9.3 mg/dL (8.4-10.2); CARBON DIOXIDE 25 mmol/L (22-30); CHLORIDE 105 mmol/L (98-107); GLUCOSE 87 mg/dL (75-110); POTASSIUM 3.9 mmol/L (3.6-5.0); SALICYLATE < 1.0 mg/dL (2.0-20.0); TOTAL PROTEIN 7.8 g/dL (6.3-8.2)
--- NOTE | 2020-10-29 23:23 | EKG REPORT ---
SEVERITY:- NORMAL ECG - SINUS RHYTHM : Confirmed by: Velia Cardoso 29-Oct-2020 23:22:22
--- NOTE | 2020-10-30 01:06 | RADIOLOGY REPORT (SQ) ---
CLINICAL HISTORY: ABDOMINAL PAIN AFTER DRINKING A BOTTLE OF WINE. COMPARISON: None. 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 FINDINGS: Lower lungs are clear. Abdomen: The liver is normal in appearance. There is no biliary dilatation. Gallbladder is normally distended. The pancreas and spleen are normal in appearance. The adrenal glands and kidneys are unremarkable. Abdominal aorta is normal in course and caliber without aneurysm. There is no free air. There is no retroperitoneal adenopathy. Pelvis: There is no bowel obstruction. Urinary bladder is unremarkable. There is no free fluid. Appendix is normal. Skeleton: There are no acute osseous findings. No suspicious bony lesions. IMPRESSION: No acute process.
[2020-10-30] MEDS ORDERED: NORMAL SALINE 1000 ML 1,000 ML IV ONE (01:33)
[2020-10-30] MEDS ORDERED: DIPHENHYDRAMINE HCL 25 MG CAPSULE PO ONE (03:11)
--- NOTE | 2020-10-30 03:58 | ER Document Report ---
ED General - General TRAVEL OUTSIDE OF THE [place] IN LAST 30 DAYS: No - Related Data Home Medications: vitamin,effexor, colace, omeprazole, allupirnol, pepcid, vistaril, buspar, mobic, buspar, mag, oxise, trazadone, prazosin, zyprexa <CHANDLER LAZO - Last Filed: 10/30/20 06:05> <KHADAR QUILES - Last Filed: 10/30/20 14:41> - General Chief Complaint: Abdominal Pain Stated Complaint: ABDOMINAL PAIN Time Seen by Provider: 10/29/20 20:25 [facility] [[facility] - Follow up as needed - [facility] Notes: Patient is a 35-year-old male who presents with abdominal pain and suicidal ideations. Patient states that he is a daily drinker. Today, he drank several beers and a bottle of wine. He then developed epigastric pain. He states he has a history of chronic pancreatitis. He states pain is sharp and radiates to his back. No fevers or chills. No headache or cold symptoms. Patient came to the ER and then stated that he wanted to kill himself by walking out into traffic. He states he has had multiple suicide attempts in the past. He has a history of bipolar disorder, depression, PTSD. No homicidal ideations. Was placed on IVC paperwork. (CHANDLER LAZO) - Related Data Allergies/Adverse Reactions: No Known Allergies Allergy (Verified 02/01/20 15:25) Past Medical History - General Information source: Patient, Relative - Social History Smoking Status: Current Every Day Smoker Frequency of alcohol use: daily Drug Abuse: None Family History: Reviewed & Not Pertinent - Past Medical History Cardiac Medical History: Reports: Hx Hypertension Renal/ Medical History: Denies: Hx Peritoneal Dialysis GI Medical History: Reports: Hx Gastroesophageal Reflux Disease, Hx Pancreatitis Musculoskeletal Medical History: Reports Hx Arthritis, Reports Hx Musculoskeletal Deformity, Reports Hx Musculoskeletal Trauma Psychiatric Medical History: Reports: Hx Anxiety, Hx Depression, Hx Post Traumatic Stress Disorder Traumatic Medical History: Reports: Hx Fractures - Knee Past Surgical History: Reports: Hx Oral Surgery, Hx Orthopedic Surgery - L knee replacement - Immunizations Immunizations up to date: Yes Hx Diphtheria, Pertussis, Tetanus Vaccination: Yes <CHANDLER LAZO - Last Filed: 10/30/20 06:05> Review of Systems <CHANDLER LAZO - Last Filed: 10/30/20 06:05> - Review of Systems Notes: CONSTITUTIONAL: No fever, fatigue or weight loss. SKIN: No rash. HENT: No congestion, ear pain, or sore throat. CARDIOVASCULAR: No chest pain or edema. RESPIRATORY: No cough, shortness of breath, congestion, or wheezing. GASTROINTESTINAL: Positive for abdominal pain, nausea, vomiting, diarrhea. GENITOURINARY: No dysuria. MUSCULOSKELETAL: No joint pain or swelling. LYMPHATIC: No swollen glands. NEUROLOGIC: No seizures. No headache, focal weakness or sensory changes. HEMATOLOGIC: No unusual bruising or bleeding. PSYCHIATRIC: Positive for depression, anxiety, suicidal ideations. (CHANDLER LAZO) Physical Exam - General General appearance: Appears well In distress: None <CHANDLER LAZO - Last Filed: 10/30/20 06:05> - Vital signs Vitals: Temp Pulse Resp BP Pulse Ox 98.4 F 101 H 18 114/56 L 100 10/29/20 20:09 10/29/20 20:09 10/29/20 20:09 10/29/20 20:09 10/29/20 20:09 - General Notes: VITAL SIGNS: Within normal limits. GENERAL: No acute distress, non-toxic appearance. HEAD: Normal with no signs of head trauma. EYES: Conjunctiva normal, no discharge. EARS: Hearing grossly intact. NOSE: Normal. NECK: Normal range of motion, no tenderness, supple, no lymphadenopathy, No adenopathy, no JVD. CHEST: Clear breath sounds bilaterally. No wheezes, rales, or rhonchi. CARDIAC: Regular rate and rhythm. S1 and S2, without murmurs, gallops, or rubs. VASCULAR: No Edema. Peripheral pulses normal and equal in all extremities. ABDOMEN: Diffuse abdominal discomfort to palpation. Abdomen is soft. No rigidity. No guarding. GASTROINTESTINAL: Bowel sounds normal MUSCULOSKELETAL: Good range of motion of all major joints. Extremities without clubbing, cyanosis or edema. NEUROLOGICAL: Alert and oriented x 3. No focal sensory or strength deficits. Speech normal. Follows commands appropriately. PSYCHIATRIC: Appears anxious. SKIN: Normal appearance with no rashes or lesions. (CHANDLER LAZO) Course - Laboratory Results Result Diagrams: 10/29/20 22:57 10/29/20 22:57 Critical Laboratory Results Reviewed: No Critical Results - Radiology Results Critical Radiology Results Reviewed: No Critical Results - EKG Interpretation by Me EKG shows normal: Sinus rhythm Rate: Normal Rhythm: NSR When compared to previous EKG there are: No significant change <CHANDLER LAZO - Last Filed: 10/30/20 06:05> - Laboratory Results Result Diagrams: 10/29/20 22:57 10/29/20 22:57 <KHADAR QUILES - Last Filed: 10/30/20 14:41> - Re-evaluation Re-evalutation: 10/30/20 03:57 Restraints were ordered as patient wanted to leave the ER and he is on IVC paperwork due to being suicidal. Restraints were removed as patient had calmed down. He had a medical work-up which was normal. He has no evidence of pancreatitis. His CAT scan is normal. He is resting comfortably. Patient understands that he needs to see psychiatry in the morning. Patient is medically cleared. He will be signed out to my colleague at the end of my shift. 10/30/20 06:04 (CHANDLER LAZO) - Vital Signs Vital signs: Temp Pulse Resp BP Pulse Ox 98.6 F 69 18 118/61 99 10/30/20 04:50 10/30/20 04:50 10/30/20 04:50 10/30/20 04:50 10/30/20 04:50 - Laboratory Results Laboratory Results Interpreted: 10/29/20 10/29/20 22:57 22:57 RBC 4.29 L Hgb 12.1 L Hct 35.6 L RDW 16.3 H AST 74 H ALT 55 H Salicylates < 1.0 L Acetaminophen < 10 L Discharge <CHANDLER LAZO - Last Filed: 10/30/20 06:05> <KHADAR QUILES - Last Filed: 10/30/20 14:41> - Discharge Clinical Impression: Suicidal ideations Abdominal pain Qualifiers: Abdominal location: generalized Qualified Code(s): R10.84 - Generalized abdominal pain Condition: Stable Disposition: OTHER Prescriptions: Buspirone HCl [Buspar 10 mg Tablet] 10 mg PO BID #28 tablet Benztropine Mesylate [Cogentin 1 mg Tablet] 1 mg PO DAILY #14 tablet Olanzapine [Zyprexa 5 mg Tablet] 7.5 mg PO Q12 14 Days #42 tablet [facility] [[facility] - Follow up as needed
--- NOTE | 2020-10-30 12:15 | ER Document Report ---
Doctor's Note Notes: 10/30/20 12:14 I reviewed the patient's history and lab work
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
[2020-10-30] MEDS ORDERED: OLANZAPINE 5 MG TABLET PO ONE (14:36)
[2020-10-30] MEDS ORDERED: BENZTROPINE MESYLATE 1 MG TABLET PO ONE (14:37)
[2020-10-30] MEDS ORDERED: BUSPIRONE HCL 10 MG TABLET PO ONE (14:37)
[2020-10-30 15:25] VITALS: BP 129/77
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
== END 2020-10-30 15:58 | disposition home or self-care (01) ==
LOC: ER 19:55
DX: Z04.6 Encounter for general psychiatric examination, requested by authority (principal); R45.851 Suicidal ideations; R10.84 Generalized abdominal pain; K21.9 Gastro-esophageal reflux disease without esophagitis; R11.2 Nausea with vomiting, unspecified; R19.7 Diarrhea, unspecified; F10.229 Alcohol dependence with intoxication, unspecified; Y90.6 Blood alcohol level of 120-199 mg/100 ml; F17.200 Nicotine dependence, unspecified, uncomplicated; I10 Essential (primary) hypertension; F31.9 Bipolar disorder, unspecified; G47.00 Insomnia, unspecified; F41.9 Anxiety disorder, unspecified; F43.10 Post-traumatic stress disorder, unspecified; Z79.899 Other long term (current) drug therapy; Z79.1 Long term (current) use of non-steroidal anti-inflammatories (NSAID); Z78.1 Physical restraint status; Z63.5 Disruption of family by separation and divorce; Z87.19 Personal history of other diseases of the digestive system
CPT/HCPCS: 99285; 96361; 96374; 36415; 80307 ×4; 83690; 85025; 80053; 81001; 74177; 93005; 93010; J1885; J7030

== ENCOUNTER 2020-11-11 12:11 | Emergency (ER) | payer OTHER ==
[2020-11-11] MEDS ORDERED: KETOROLAC TROMETHAMINE INJ/PF 30 MG/1 ML SDV IM ONE (13:22)
[2020-11-11] MEDS ORDERED: ONDANSETRON 4 MG TAB.RAPDIS PO ONE (13:22)
--- NOTE | 2020-11-11 13:24 | ER Document Report ---
ED Medical Screen (RME) - General Chief Complaint: Abdominal Pain Stated Complaint: ABDOMINAL PAIN,VOMITING Time Seen by Provider: 11/11/20 13:18 Primary Care Provider: MICHAELA WADDELL [Primary Care Provider] - Follow up as needed Mode of Arrival: Ambulatory Information source: Patient TRAVEL OUTSIDE OF THE [place] IN LAST 30 DAYS: No - HPI Patient complains to provider of: Abdominal pain Notes: 11/11/20 13:22 Patient with complaints of upper abdominal pain. Patient states that this started yesterday. He has nausea, but no vomiting or diarrhea. No dysuria or hematuria. He does have a history of pancreatitis. Patient was seen about a week and a half ago for abdominal pain and had a CT at that time that was unremarkable. Exam: No distress, nontoxic appearing. Lungs clear throughout. Epigastric tenderness on limited triage abdominal exam. An initial examination was made on the patient as part of the triage process, and it was determined a more comprehensive evaluation was necessary. Initial orders were placed and patient was transferred to another provider in the ED who assumed care and finished evaluation and plan. - Related Data Allergies/Adverse Reactions: No Known Allergies Allergy (Verified 02/01/20 15:25) Past Medical History - Social History Chew tobacco use (# tins/day): No Frequency of alcohol use: Occasional Drug Abuse: None - Past Medical History Cardiac Medical History: Reports: Hx Hypertension Renal/ Medical History: Denies: Hx Peritoneal Dialysis GI Medical History: Reports: Hx Gastroesophageal Reflux Disease, Hx Pancreatitis Musculoskeltal Medical History: Reports Hx Arthritis, Reports Hx Musculoskeletal Deformity, Reports Hx Musculoskeletal Trauma Psychiatric Medical History: Reports: Hx Anxiety, Hx Depression, Hx Post Traumatic Stress Disorder Traumatic Medical History: Reports: Hx Fractures - Knee Past Surgical History: Reports: Hx Oral Surgery, Hx Orthopedic Surgery - L knee replacement - Immunizations Immunizations up to date: Yes Hx Diphtheria, Pertussis, Tetanus Vaccination: Yes Physical Exam - Vital signs Vitals: Temp Pulse Resp BP Pulse Ox 98.6 F 100 18 128/88 H 100 11/11/20 12:43 11/11/20 12:43 11/11/20 12:43 11/11/20 12:43 11/11/20 12:43 Course - Vital Signs Vital signs: Temp Pulse Resp BP Pulse Ox 98.6 F 100 18 128/88 H 100 11/11/20 12:43 11/11/20 12:43 11/11/20 12:43 11/11/20 12:43 11/11/20 12:43 Doctor's Discharge - Discharge [facility] - Follow up as needed
[2020-11-11 14:02] LABS: ABSOLUTE BASOPHILS # (AUTO) 0.1 10^3/uL (0.0-0.2); ABSOLUTE EOSINOPHILS # (AUTO) 0.1 10^3/uL (0.0-0.6); ABSOLUTE LYMPHOCYTES (AUTO) 1.8 10^3/uL (0.5-4.7); ABSOLUTE MONOCYTES (AUTO) 0.8 10^3/uL (0.1-1.4); ABSOLUTE NEUT (AUTO) 6.9 10^3/uL (1.7-8.2); BASOPHILS % (AUTO) 0.7 % (0-2); EOSINOPHILS % (AUTO) 1.3 % (0-6); HEMATOCRIT 36.7 % (37.9-51.0); HEMOGLOBIN 12.2 g/dL (13.5-17.0); LYMPHOCYTES % (AUTO) 18.4 % (13-45); MEAN CORPUSCULAR HEMOGLOBIN 27.5 pg (27.0-33.4); MEAN CORPUSCULAR HGB CONC 33.3 g/dL (32.0-36.0); MEAN CORPUSCULAR VOLUME 83 fl (80-97); MONOCYTES % (AUTO) 8.7 % (3-13); PLATELET COUNT 237 10^3/uL (150-450); RED BLOOD COUNT 4.44 10^6/uL (4.35-5.55); RED CELL DISTRIBUTION WIDTH 16.9 % (11.5-14.0); SEGMENTED NEUTROPHILS % (AUTO) 70.9 % (42-78); TOTAL CELLS COUNTED % (AUTO) 100 %; WHITE BLOOD COUNT 9.8 10^3/uL (4.0-10.5)
[2020-11-11 14:15] LABS: APPEARANCE,URINE CLEAR; BILIRUBIN,URINE NEGATIVE (NEGATIVE); COLOR,URINE YELLOW; GLUCOSE, URINE NEGATIVE (NEGATIVE); KETONES,URINE NEGATIVE (NEGATIVE); LEUKOCYTE ESTERASE,URINE NEGATIVE (NEGATIVE); NITRITE,URINE NEGATIVE (NEGATIVE); PROTEIN,URINE 30 mg/dL (NEGATIVE); URINE SPECIFIC GRAVITY 1.023; UROBILINOGEN,URINE NEGATIVE mg/dL (<2.0)
[2020-11-11 14:24] LABS: ALBUMIN 4.5 g/dL (3.5-5.0); ALKALINE PHOSPHATASE 101 U/L (38-126); ANION GAP 8 (5-19); ASPARTATE AMINO TRANSFERASE 96 U/L (17-59); BILIRUBIN,DIRECT 0.4 mg/dL (0.0-0.4); BILIRUBIN,TOTAL 1.1 mg/dL (0.2-1.3); BLOOD UREA NITROGEN 15 mg/dL (7-20); CALCIUM 9.5 mg/dL (8.4-10.2); CARBON DIOXIDE 24 mmol/L (22-30); CHLORIDE 105 mmol/L (98-107); GLUCOSE 99 mg/dL (75-110); TOTAL PROTEIN 7.9 g/dL (6.3-8.2)
[2020-11-11] MEDS ORDERED: LIDOCAINE 2% VISCOUS SOLN 15 ML UDCUP PO ONE (14:41)
[2020-11-11] MEDS ORDERED: MAG HYDROX/AL HYDROX/SIMETH SUSP 30 ML UDCUP PO ONE (14:41)
[2020-11-11] MEDS ORDERED: NORMAL SALINE 1000 ML 1,000 ML IV ONE (14:48)
[2020-11-11] MEDS ORDERED: FAMOTIDINE INJ/PF 20 MG/2 ML SDV IV ONE (14:48)
--- NOTE | 2020-11-11 14:49 | ER Document Report ---
ED GI/ - General Chief Complaint: Abdominal Pain Stated Complaint: ABDOMINAL PAIN,VOMITING Time Seen by Provider: 11/11/20 13:18 Primary Care Provider: LEANDRO WEBER MD [ACTIVE STAFF] - Follow up as needed AVERY FORD MD [ACTIVE STAFF] - Follow up as needed [facility] [Primary Care Provider] - Follow up as needed Mode of Arrival: Ambulatory Information source: Patient Notes: Patient presents complaining of abdominal pain that started today with nausea and vomiting x2 episodes. Patient denies any diarrhea. Patient denies any cough or urinary symptoms. Patient does acknowledge a history of pancreatitis and acid reflux in the past. Patient does admit to drinking alcohol yesterday. TRAVEL OUTSIDE OF THE [place] IN LAST 30 DAYS: No - HPI Patient complains to provider of: Abdominal pain, Vomiting. No: Diarrhea Onset: This morning Timing/Duration: Gradual Quality of pain: Cramping Pain Level: 4 Location: Epigastric Sexual history: Active Associated symptoms: Nausea, Vomiting. 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 Lives with: Family Family History: Reviewed & Not Pertinent - Past Medical History Cardiac Medical History: Reports: Hx Hypertension Renal/ Medical History: Denies: Hx Peritoneal Dialysis GI Medical History: Reports: Hx Gastroesophageal Reflux Disease, Hx Pancreatitis Musculoskeletal Medical History: Reports Hx Arthritis, Reports Hx Musculoskeletal Deformity, Reports Hx Musculoskeletal Trauma Psychiatric Medical History: Reports: Hx Anxiety, Hx Depression, Hx Post Traumatic Stress Disorder Traumatic Medical History: Reports: Hx Fractures - Knee Past Surgical History: Reports: Hx Oral Surgery, Hx Orthopedic Surgery - L knee replacement - Immunizations Immunizations up to date: Yes Hx Diphtheria, Pertussis, Tetanus Vaccination: Yes Review of Systems - Review of Systems Constitutional: No symptoms reported. denies: Fever, Recent illness EENT: No symptoms reported Cardiovascular: No symptoms reported. denies: Chest pain Respiratory: No symptoms reported. denies: Cough, Short of breath Gastrointestinal: Abdominal pain, Nausea, Vomiting. denies: Diarrhea Genitourinary: No symptoms reported. denies: Dysuria, Flank pain Male Genitourinary: No symptoms reported Musculoskeletal: No symptoms reported. denies: Back pain Skin: No symptoms reported Hematologic/Lymphatic: No symptoms reported Neurological/Psychological: No symptoms reported Physical Exam - Vital signs Vitals: Temp Pulse Resp BP Pulse Ox 98.6 F 100 18 128/88 H 100 11/11/20 12:43 11/11/20 12:43 11/11/20 12:43 11/11/20 12:43 11/11/20 12:43 - General General appearance: Appears well, Alert In distress: None - HEENT Head: Normocephalic, Atraumatic Eyes: Normal Conjunctiva: Normal Nasal: Normal Mouth/Lips: Normal Neck: Normal, Supple. No: Lymphadenopathy - Respiratory Respiratory status: No respiratory distress Chest status: Nontender Breath sounds: Normal. No: Rales, Rhonchi, Stridor, Wheezing Chest palpation: Normal - Cardiovascular Rhythm: Regular Heart sounds: S1 appreciated, S2 appreciated Murmur: No - Abdominal Inspection: Normal Distension: No distension Bowel sounds: Normal Tenderness: Tender - Epigastric Organomegaly: No organomegaly - Back Back: Normal, Nontender. No: CVA tenderness - Extremities General upper extremity: Normal inspection, Normal ROM General lower extremity: Normal inspection, Normal ROM - Neurological Neuro grossly intact: Yes Cognition: Normal Orientation: AAOx4 [place] Coma Scale Eye Opening: Spontaneous Silvia Coma Scale Verbal: Oriented Silvia Coma Scale Motor: Obeys Commands [place] Coma Scale Total: 15 - Psychological Associated symptoms: Normal affect, Normal mood - Skin Skin Temperature: Warm Skin Moisture: Dry Skin Color: Normal Course - Re-evaluation Re-evalutation: 11/11/20 16:40 Patient's nausea has resolved at this time although does still complain of epigastric pain. Patient denies any improvement after GI cocktail. Patient without any evidence for any biliary obstruction on ultrasound. Patient without any fever or leukocytosis. Suspect likely gastritis although patient does have a history of pancreatitis presents with a mildly elevated lipase and history of recent alcohol use. Patient encouraged to avoid use of alcohol and to be on a clear liquid diet that he can advance as tolerated. Patient encouraged to follow-up with a news clipping cutter for further evaluation of his symptoms. Good return precautions discussed with patient and his spouse. Consulted with Dr. Camarillo who does agree with discharge plan of care at this time. 11/11/20 16:41 - Vital Signs Vital signs: Temp Pulse Resp BP Pulse Ox 98.7 F 93 19 130/86 H 99 11/11/20 16:40 11/11/20 16:40 11/11/20 16:40 11/11/20 16:40 11/11/20 16:40 - Laboratory Results Result Diagrams: 11/11/20 13:30 11/11/20 13:30 Laboratory Results Interpreted: 11/11/20 11/11/20 11/11/20 13:30 13:30 13:30 Hgb 12.2 L Hct 36.7 L RDW 16.9 H AST 96 H ALT 57 H Lipase 792.6 H Urine Protein 30 H 11/11/20 16:42 Labs- All tests 24 hr 11/11/20 11/11/20 11/11/20 13:30 13:30 13:30 WBC 9.8 RBC 4.44 Hgb 12.2 L Hct 36.7 L MCV 83 MCH 27.5 MCHC 33.3 RDW 16.9 H Plt Count 237 Lymph % (Auto) 18.4 [facility] % (Auto) 8.7 Eos % (Auto) 1.3 Baso % (Auto) 0.7 Absolute Neuts (auto) 6.9 Absolute Lymphs (auto) 1.8 Absolute Monos (auto) 0.8 Absolute Eos (auto) 0.1 Absolute Basos (auto) 0.1 Seg Neutrophils % 70.9 Sodium 137.4 Potassium 4.0 Chloride 105 Carbon Dioxide 24 Anion Gap 8 BUN 15 Creatinine 1.05 Est GFR ( Amer) > 60 Est GFR (MDRD) Non-Af > 60 Glucose 99 Calcium 9.5 Total Bilirubin 1.1 Direct Bilirubin 0.4 Neonat Total Bilirubin Not Reportable Neonat Direct Bilirubin Not Reportable Neonat Indirect Bili Not Reportable AST 96 H ALT 57 H Alkaline Phosphatase 101 Total Protein 7.9 Albumin 4.5 Lipase 792.6 H Urine Color YELLOW Urine Appearance CLEAR Urine pH 7.0 Ur Specific [place] 1.023 Urine Protein 30 H Urine Glucose (UA) NEGATIVE Urine Ketones NEGATIVE Urine Blood NEGATIVE Urine Nitrite NEGATIVE Urine Bilirubin NEGATIVE Urine Urobilinogen NEGATIVE Ur Leukocyte Esterase NEGATIVE Urine WBC (Auto) 1 Urine RBC (Auto) 1 Urine Mucus (Auto) RARE Urine Ascorbic Acid NEGATIVE Critical Laboratory Results Reviewed: No Critical Results - Radiology Results Critical Radiology Results Reviewed: No Critical Results Discharge - Discharge Clinical Impression: History of alcohol consumption, Elevated lipase Gastritis Qualifiers: Gastritis type: alcoholic Chronicity: unspecified Gastritis bleeding: without bleeding Qualified Code(s): K29.20 - Alcoholic gastritis without bleeding Condition: Stable Disposition: HOME, SELF-CARE Instructions: Abdominal Pain ([facility]), Gastritis ([facility]), Pancreatitis ([facility]) Additional Instructions: Return immediately for any new or worsening symptoms: Fever, vomiting, worsening symptoms or any concerning new problems Followup with your primary care provider, call tomorrow to make a followup appointment Follow-up with a news clipping cutter for further evaluation, call for follow-up Clear liquid diet, advance as tolerated Avoid use of alcohol as this can worsen your symptoms Prescriptions: Sucralfate [Carafate 1 gm Tablet] 1 gm PO ACHS #40 tablet Ondansetron [Zofran Odt 4 mg Tablet] 1 tab PO Q6H #15 tab.rapdis Forms: Return to Work Referrals: [facility] [Primary Care Provider] - Follow up as needed LEANDRO WEBER MD [ACTIVE STAFF] - Follow up as needed AVERY FORD MD [ACTIVE STAFF] - Follow up as needed
--- NOTE | 2020-11-11 16:05 | RADIOLOGY REPORT (SQ) ---
EXAM DESCRIPTION: U/S ABDOMEN LIMITED W/O DOP IMAGES COMPLETED DATE/TIME: 11/11/2020 3:41 pm REASON FOR STUDY: upper abd pain, elevated lipase COMPARISON: 10/10/2019 TECHNIQUE: Dynamic and static grayscale images acquired of the abdomen and recorded on PACS. Courtneyo saloni selected color Doppler and spectral images recorded. LIMITATIONS: None. FINDINGS: PANCREAS: No masses. Visualized pancreatic duct normal caliber. LIVER: Normal size Mild fatty infiltration. No focal masses. LIVER VASCULATURE: Normal directional flow of the main portal vein and hepatic veins. GALLBLADDER: No stones. Normal wall thickness. No pericholecystic fluid. ULTRASOUND-DETECTED SALINAS'S SIGN: Negative. INTRAHEPATIC DUCTS AND COMMON DUCT: CBD and intrahepatic ducts normal caliber. No filling defects. INFERIOR VENA CAVA: Normal flow. AORTA: No aneurysm. RIGHT KIDNEY: Normal size. Normal echogenicity. No solid or suspicious masses. No hydronephros is. No calcifications. PERITONEAL AND RIGHT PLEURAL SPACE: No ascites or effusions. OTHER: No other significant findings. IMPRESSION: Fatty liver. No acute findings. TECHNICAL DOCUMENTATION: JOB ID: [id number] 2010 [employer]- All Rights Reserved Reading location - IP/workstation name: [email or web address]
[2020-11-11] MEDS ORDERED: MORPHINE SULFATE 10 MG/ML INJ IV ONE (16:40)
[2020-11-11 16:42] VITALS: BP 130/86
== END 2020-11-11 17:28 | disposition home or self-care (01) ==
LOC: ER 12:11
DX: K29.20 Alcoholic gastritis without bleeding (principal); R11.2 Nausea with vomiting, unspecified; R10.13 Epigastric pain; R10.816 Epigastric abdominal tenderness; K76.0 Fatty (change of) liver, not elsewhere classified; F17.200 Nicotine dependence, unspecified, uncomplicated; I10 Essential (primary) hypertension; Z87.19 Personal history of other diseases of the digestive system
CPT/HCPCS: 99285; 96372; 96374; 96375; 36415; 83690; 85025; 80053; 81001; 76705; S0119; J3490; J1885; J2270; J7030; S0028